=== PATIENT | male | born 1935 | race Caucasian/White ===

== ENCOUNTER 2017-05-29 22:54 | Inpatient (IN) | payer MEDICARE ==
[~2017-05-29] VITALS: Ht 165.1 cm; Wt 80.3 kg
[2017-05-29 22:45] VITALS: BP 146/72; PULSE 107; RESP 20; TEMP 98.3; O2SAT 97
[~2017-05-29 22:54] MED LIST: ACETAMINOPHEN 325 MG TAB PO PRN; AMLO10; AMLO10 PO; CLOP75; ENAL20TA81; LISI-515 PO; LOVA10TA; MAGNESIUM HYDROXIDE SUSP 30 ML CUP PO PRN; METO100T; METO100T PO; METOPROLOL TARTRATE 100 MG TAB PO SCH; NALOXONE HCL 0.4 MG/ML AMP IV PUSH PRN; NITROGLYCERIN 0.4 MG SL 25 TABS/BTL SL PRN; ONDANSETRON HCL 4 MG/2 ML VIAL IVP PRN; SODIUM CHLORIDE 0.9% FLUSH 10 ML FLUSH IV FLUSH PRN; TAMS0.4C67
[2017-05-29] MEDS: SODIUM CHLORIDE 0.9% FLUSH 10 ML FLUSH IV FLUSH SCH (23:50)
[2017-05-29] MEDS: METOPROLOL TARTRATE 50 MG TAB PO SCH (23:51)
[2017-05-30] VITALS (8 sets, daily range): BP systolic 104–116; BP diastolic 56–67; PULSE 62–88; RESP 16–19; TEMP 97.6–98.6; O2SAT 94–96
[2017-05-30 01:32] LABS: AUTOMATED NEUTROPHIL # 6.4 TH/MM3 (1.8-7.7); BASOPHIL # 0.1 TH/MM3 (0-0.2); BASOPHIL % 0.5 % (0.0-2.0); EOSINOPHIL # 0.1 TH/MM3 (0-0.4); EOSINOPHIL % 1.3 % (0.0-4.0); HEMATOCRIT 40.8 % (39.0-51.0); LYMPH % 26.4 % (9.0-44.0); LYMPHOCYTE # 2.7 TH/MM3 (1.0-4.8); MEAN CORPUSCULAR HEMOGLOBIN 29.7 PG (27.0-34.0); MEAN CORPUSCULAR HGB CONC 33.8 % (32.0-36.0); MONO % 8.5 % (0.0-8.0); NEUT % 63.3 % (16.0-70.0); PLATELET COUNT 87 TH/MM3 (150-450); RED BLOOD COUNT 4.64 MIL/MM3 (4.50-5.90); RED CELL DISTRIBUTION WIDTH 14.9 % (11.6-17.2); WHITE BLOOD COUNT 10.1 TH/MM3 (4.0-11.0)
[2017-05-30 01:37] LABS: HEMO FLAGS AUTO DIFF
[2017-05-30 02:17] LABS: BICARBONATE 27.6 MEQ/L (21.0-32.0); POTASSIUM 4.5 MEQ/L (3.5-5.1)
[2017-05-30 02:20] LABS: HDL CHOLESTEROL 50.3 MG/DL (40.0-60.0)
[2017-05-30 02:25] LABS: OVALOCYTES 1+ (NORMAL); PLATELET ESTIMATE SMEAR LOW (NORMAL); PLATELET MORPHOLOGY NORMAL (NORMAL)
[2017-05-30 02:26] LABS: ACANTHOCYTES OCC (NORMAL); SCAN/DIFF AUTO DIFF CONFIRMED
--- NOTE | 2017-05-30 05:25 | RADRPT ---
EXAM DATE/TIME: 05/30/2017 04:30 [facility] COMPARISON: No previous studies available for comparison. INDICATIONS : Shortness of breath, possible pulmonary disease. MEDICAL HISTORY : None. SURGICAL HISTORY : None. ENCOUNTER: Initial ACUITY: 1 day PAIN SCORE: 0/10 LOCATION: Bilateral chest FINDINGS: A single view of the chest demonstrates the lungs to be symmetrically aerated without evidence of mas s, infiltrate or effusion. The cardiomediastinal contours are unremarkable. Osseous structures are intact. CONCLUSION: The lungs are clear. Reginaldo Anne MD on May 30, 2017 at 5:24 Board Certified Radiologist. This report was verified electronically.
[2017-05-30] MEDS: SODIUM CHLORIDE 0.9% FLUSH 10 ML FLUSH IV FLUSH SCH ×2 (09:00→20:52)
[2017-05-30] MEDS: ASPIRIN 325 MG TAB PO SCH (09:11)
[2017-05-30] MEDS: METOPROLOL TARTRATE 50 MG TAB PO SCH ×2 (09:11→20:51)
--- NOTE | 2017-05-30 09:38 | RADRPT ---
EXAM DATE/TIME: 05/30/2017 08:01 [facility] COMPARISON: No previous studies available for comparison. INDICATIONS : Weakness. MEDICAL HISTORY : Stroke. Hypercholesterolemia. Hypertension. Transient ischemic attack. Right shoulder surgery. SURGICAL HISTORY : Hemmroidectomy. ENCOUNTER: Initial ACUITY: 1 day PAIN SCORE: 10 LOCATION: Bilateral neck PEAK SYSTOLIC VELOCITIES (cm/sec): ICA/CCA RATIO: Right: 0.9 Left: 0.7 ICA: Right: 71 Left: 54 CCA: Right: 79 Left: 74 ECA: Right: 89 Left: 64 VERTEBRAL: Right: 39 antegrade Left: 40 antegrade Elevated flow velocities and ICA/CCA ratios have been found to correlate with increased degrees of vessel stenosis, calculated as percentage of diameter relative to a normal segment of distal ICA/CCA FINDINGS: RIGHT CAROTID: No significant stenosis is visualized. The waveforms are within normal limits. LEFT CAROTID: Minimal calcified plaque is seen in the carotid bulb. No significant stenosis is visualized. The wav eforms are within normal limits. VERTEBRAL ARTERIES: Antegrade flow is seen in both vertebral arteries. MISCELLANEOUS: None. CONCLUSION: Mild atherosclerotic disease. No evidence of hemodynamically significant stenosis. Demian George MD on May 30, 2017 at 9:35 Board Certified Radiologist. This report was verified electronically.
--- NOTE | 2017-05-30 10:08 | HHI.HP ---
HPI Service [facility] Hospitalists Primary Care Physician Matthew Corrales MD Admission Diagnosis abnormal troponin Chief Complaint: dizziness Travel History International Travel<30 Days: No Contact w/Intl Traveler <30 Da: No History of Present Illness Pt is 82 yo with ckd 3 and htn who says he ran out of his metoprolol and then began feeling bad. says he was taking 1/2 the dose for 2 days then went without it for 2 more days. Was feeling dizzy for 2 days and noticed a higher bp into 140s. He came to ED and they noted an elevated troponin and sent him to [place]. He feels well today but troponin trended up slightly. no cp or sob. no diaphoresis. takes a baby asa at home. Review of Systems Other ran out of bb dizziness. Past Family Social History Past Medical History ckd 3 htn right shoulder surgery hemorroidectomy Reported Medications Metoprolol Tartrate 100 Mg Tab 100 Mg PO BID Norvasc (Amlodipine Besylate) 10 Mg Tab 10 Mg PO DAILY Lisinopril 20 Mg Tab 20 Mg PO DAILY asa 81mg daily [facility] records also show a statin drug. Allergies: Coded Allergies: ciprofloxacin (Unverified Allergy, Mild, RASH, 05/29/17) Family History nc Social History 40yrs tobacco. quit 20yrs ago. Physical Exam Vital Signs nad oriented heart reg. fran loudest rusb with carotid radiation. lung cta abd s/nt ext no edema Vital Signs Date Time Temp Pulse Resp B/P (MAP) Pulse Ox O2 Delivery O2 Flow Rate FiO2 05/30/17 08:00 98.0 73 16 116/66 (83) 96 05/30/17 04:16 73 05/30/17 04:00 98.6 87 19 114/67 (83) 94 05/30/17 01:58 Room Air 05/30/17 00:00 98.6 67 19 114/56 (75) 95 05/29/17 22:45 98.3 107 20 146/72 (96) 97 Laboratory Laboratory Tests Test 05/30/17 01:13 05/30/17 07:40 White Blood Count 10.1 Red Blood Count 4.64 Hemoglobin 13.8 Hematocrit 40.8 Mean Corpuscular Volume 88.0 Mean Corpuscular Hemoglobin 29.7 Mean Corpuscular Hemoglobin Concent 33.8 Red Cell Distribution Width 14.9 Platelet Count 87 Mean Platelet Volume 9.9 Neutrophils (%) (Auto) 63.3 Lymphocytes (%) (Auto) 26.4 Monocytes (%) (Auto) 8.5 Eosinophils (%) (Auto) 1.3 Basophils (%) (Auto) 0.5 Neutrophils # (Auto) 6.4 Lymphocytes # (Auto) 2.7 Monocytes # (Auto) 0.9 Eosinophils # (Auto) 0.1 Basophils # (Auto) 0.1 CBC Comment AUTO DIFF Differential Comment AUTO DIFF CONFIRMED Platelet Estimate LOW Platelet Morphology Comment NORMAL Ovalocytes 1+ Acanthocytes OCC Blood Urea Nitrogen 25 Creatinine 1.55 Random Glucose 102 Calcium Level 8.6 Sodium Level 141 Potassium Level 4.5 Chloride Level 106 Carbon Dioxide Level 27.6 Anion Gap 7 Estimat Glomerular Filtration Rate 43 Total Creatine Kinase 148 178 Troponin I 0.12 0.10 Triglycerides Level 50 Cholesterol Level 97 LDL Cholesterol 37 HDL Cholesterol 50.3 Cholesterol/HDL Ratio 1.92 Result Diagram: 05/30/1711205/30/17112 Caprini VTE Risk Assessment Caprini VTE Risk Assessment: Mod/High Risk (score >= 2) Caprini Risk Assessment Model Point Value = 1 Point Value = 2 Point Value = 3 Point Value = 5 Age 41-60 Minor surgery BMI > 25 kg/m2 Swollen legs Varicose veins or History of unexplained or recurrent spontaneous Oral contraceptives or hormone replacement Sepsis (< 1 month) Serious lung disease, including pneumonia (< 1 month) Abnormal pulmonary function Acute myocardial infarction Congestive heart failure (< 1 month) History of inflammatory bowel disease Medical patient at bed rest Age 61-74 Arthroscopic surgery Major open surgery (> 45 min) Laparoscopic surgery (> 45 min) Malignancy Confined to bed (> 72 hours) Immobilizing plaster cast Central venous access Age >= 75 History of VTE Family history of VTE Factor V Leiden Prothrombin [id number] Lupus anticoagulant Anticardiolipin antibodies Elevated serum homocysteine Heparin-induced thrombocytopenia Other congenital or acquired thrombophilia Stroke (< 1 month) Elective arthroplasty Hip, pelvis, or leg fracture Acute spinal cord injury (< 1 month) Prophylaxis Regimen Total Risk Factor Score Risk Level Prophylaxis Regimen 0-1 Low Early ambulation 2 Moderate Order ONE of the following: *Sequential Compression Device (SCD) *Heparin 5000 units SQ BID 3-4 Higher Order ONE of the following medications: *Heparin 5000 units SQ TID *Enoxaparin/Lovenox 40 mg SQ daily (WT < 150 kg, CrCl > 30 mL/min) *Enoxaparin/Lovenox 30 mg SQ daily (WT < 150 kg, CrCl > 10-29 mL/min) *Enoxaparin/Lovenox 30 mg SQ BID (WT < 150 kg, CrCl > 30 mL/min) AND/OR *Sequential Compression Device (SCD) 5 or more Highest Order ONE of the following medications: *Heparin 5000 units SQ TID (Preferred with Epidurals) *Enoxaparin/Lovenox 40 mg SQ daily (WT < 150 kg, CrCl > 30 mL/min) *Enoxaparin/Lovenox 30 mg SQ daily (WT < 150 kg, CrCl > 10-29 mL/min) *Enoxaparin/Lovenox 30 mg SQ BID (WT < 150 kg, CrCl > 30 mL/min) AND *Sequential Compression Device (SCD) Assessment and Plan Problem List: (1) Elevated troponin ICD Codes: R74.8 - Abnormal levels of other serum enzymes Status: Acute Plan: pt with htn and ckd 3 ran out of his metoprolol developed dizziness elevated troponin..trending slightly up...could be just related to ckd 3 echo and katharine pending resume ccb/bb/clary as bp allows. cont asa. telemetry. ADDENDUM PT NEVER HAD CP. HE IS FOUND TO HAVE ABNORMAL STRESS TEST FOR ISCHEMIA.. ALSO HIS ECHO SHOWS SEVERE AVS AND SYSTOLIC CHF. CURRENTLY COMPENSATED. ASK CARDIOLOGY TO EVALUATE (2) CKD (chronic kidney disease) stage 3, GFR 30-59 ml/min ICD Codes: N18.3 - Chronic kidney disease, stage 3 (moderate) Status: Chronic (3) HTN (hypertension) ICD Codes: I10 - Essential (primary) hypertension Status: Chronic Physician Certification 2 Midnight Certification Type: Admission for Inpatient Services Order for Inpatient Services 2The services are ordered in accordance with Medicare regulations or non- Medicare payer requirements, as applicable. In the case of services not specified as inpatient-only, they are appropriately provided as inpatient services in accordance with the 2-midnight benchmark. Estimated LOS (days): 2 2 days is the estimated time the patient will need to remain in the hospital, assuming treatment plan goals are met and no additional complications. Post-Hospital Plan: Home Rene Aviles MD May 30, 2017 10:08
[2017-05-30] MEDS ORDERED: REGADENOSON INJ 0.4 MG/5 ML SYR ONE (13:09)
--- NOTE | 2017-05-30 15:18 | ECHRPT ---
Indication: chest pain CONCLUSIONS The left ventricular systolic function is funytbdt-ks-urgakys reduced with an estimated ejection fra ction in the range of 35-40%. Normal left ventricular size. Mild concentric left ventricular hypertrophy. Nmbjs-ws-tzeh mitral valve regurgitation. Severe aortic valve stenosis. Aortic valve area is 0.43 cm. Aortic valve mean gradient is 72 mmHg. Aortic valve Vmax 549 cm/s There is mild tricuspid valve regurgitation. The pulmonary valve is not well visualized. BP: / HR: Rhythm: MEASUREMENTS (Male / Female) Normal Values Technical Quality:Technically difficult study 2D ECHO LV Diastolic Diameter PLAX 4.1 cm 4.2 - 5.9 / 3.9 - 5.3 cm LV Systolic Diameter PLAX 3.5 cm IVS Diastolic Thickness 2.1 cm 0.6 - 1.0 / 0.6 - 0.9 cm LVPW Diastolic Thickness 1.1 cm 0.6 - 1.0 / 0.6 - 0.9 cm LV Relative Wall Thickness 0.8 RV Internal Dim ED PLAX 2.3 cm LVOT Diameter 2.6 cm M-MODE Aortic Root Diameter MM 2.9 cm LA Systolic Diameter MM 2.8 cm LA Ao Ratio MM 1.0 DOPPLER AV Peak Velocity 548.5 cm/s AV Peak Gradient 120.3 mmHg AV Mean Gradient 72.0 mmHg AV Velocity Time Integral 123.0 cm LVOT Peak Velocity 49.6 cm/s LVOT Peak Gradient 1.0 mmHg LVOT Velocity Time Integral 10.0 cm AV Area Cont Eq vti 0.4 cm AV Area Cont Eq pk 0.5 cm Mitral E Point Velocity 56.8 cm/s Mitral A Point Velocity 104.0 cm/s Mitral E to A Ratio 0.5 LV E' Lateral Velocity 4.6 cm/s Mitral E to LV E' Lateral Ratio 12.4 LV E' Septal Velocity 3.7 cm/s Mitral E to LV E' Septal Ratio 15.2 FINDINGS LEFT VENTRICLE The left ventricular systolic function is kwlbwtqj-bc-ptswqek reduced with an estimated ejection fra ction in the range of 35-40%. Normal left ventricular size. Mild concentric left ventricular hypertrophy. RIGHT VENTRICLE Normal right ventricular size and systolic function. LEFT ATRIUM The left atrial size is normal. RIGHT ATRIUM The right atrial size is normal. ATRIAL SEPTUM Normal atrial septal thickness without atrial level shunting by limited color doppler interrogation. AORTA The aortic root and proximal ascending aorta are normal in size on limited imaging. MITRAL VALVE Structurally normal mitral valve. Ixzbu-id-fkfl mitral valve regurgitation. AORTIC VALVE Severe aortic valve stenosis. Aortic valve area is 0.43 cm. Aortic valve mean gradient is 72 mmHg. Aortic valve Vmax 549 cm/s TRICUSPID VALVE Structurally normal tricuspid valve. There is mild tricuspid valve regurgitation. PULMONARY VALVE The pulmonary valve is not well visualized. VESSELS The inferior vena cava is normal in size. PERICARDIUM No pericardial effusion. Tyron Downey MD (Electronically Signed) Final Date:30 May 2017 15:17
--- NOTE | 2017-05-30 15:41 | RADRPT ---
EXAM DATE/TIME: 05/30/2017 12:39 [facility] COMPARISON: No previous studies available for comparison. INDICATIONS : Substernal chest pain with dizziness. Angina. DOSE: 25.9 mCi Tc99m Myoview at stress. 8.5 mCi Tc99m Myoview at rest. 0.4 mg Lexiscan STRESS SYMPTOMS: None. EJECTION FRACTION: 43% MEDICAL HISTORY : Hypertension. Renal failure, chronic. SURGICAL HISTORY : Hemorrhoidectomy. Right shoulder. ENCOUNTER: Initial ACUITY: 1 day PAIN SCALE: 4/10 LOCATION: Substernal chest TECHNIQUE: The patient underwent pharmacologic stress with infusion of prescribed dose. Continuous ECG tracing was monitored during stress. Gated SPECT imaging was performed after stress and conventional SPECT i maging was performed at rest. The examination was performed on a SPECT/CT scanner, both attenuation and non-corrected datasets were reviewed. FINDINGS: DISTRIBUTION: The maximum perfused segment at stress is in the anterior wall. PERFUSION STUDY: A mixed fixed and reversible perfusion abnormality is identified in the inferior wall of the left nathaly tricle. A predominantly stress induced infra-apical component is noted with peripheral reperfusion. GATED STUDY: Increased wall motion is identified in the inferior wall. Ejection fraction is 43%. CONCLUSION: 1. Partially reversible Stress-induced perfusion abnormality in the inferior wall and inferoapical re gion of the left ventricle. 2. Mild left ventricular chamber dilatation with hypokinetic inferior wall. 3. Decreased ejection fraction of 43%. RISK CATEGORY: Intermediate (1-3% Annual Mortality Rate) Demian George MD on May 30, 2017 at 15:35 Board Certified Radiologist. This report was verified electronically.
--- NOTE | 2017-05-30 20:08 | EKG ---
Date Performed: 05/30/2017 Time Performed: 00:16:58 PTAGE: 82 years EKG: Sinus rhythm Indeterminate axis Right bundle branch block Abnormal ECG NO PREVIOUS TRACING Compared to prior tracing no significant change DOCTOR: True Shukla Interpretating Date/Time 05/30/2017 20:07:08
--- NOTE | 2017-05-30 20:08 | EKG ---
Date Performed: 05/30/2017 Time Performed: 05:56:48 PTAGE: 82 years EKG: Sinus rhythm Indeterminate axis Right bundle branch block Abnormal ECG PREVIOUS TRACING : 05/30/2017 00.16 Compared to prior tracing no significant change DOCTOR: True Shukla Interpretating Date/Time 05/30/2017 20:07:40
[2017-05-30] MEDS ORDERED: METOPROLOL TARTRATE 100 MG TAB PO SCH (21:00)
[2017-05-31] VITALS (18 sets, daily range): BP systolic 105–160; BP diastolic 56–90; PULSE 67–88; RESP 16–20; TEMP 98–98.7; O2SAT 95–98
--- NOTE | 2017-05-31 08:12 | PD.CONS ---
HPI Service cardiology Consult Requested By Reason for Consult severe aortic stenosis, abnormal stress test Primary Care Physician Matthew Corrales MD History of Present Illness 82 yo WM with CKD, HTN and aortic stenosis presented to [facility] on feeling dizzy; he had recently run out of metoprolol. During the course of his workup he was noted to have a cardiac murmur and elevated troponin. Echo showed severe aortic stenosis with reduced EF of 35-40%; stress testing was abnormal. Troponins increasing from 0.04/0.08/0.12; and creatinine elevated. He admits to occasional SOB with moderate exertion. No chest pain. (Genesis Carlson) Review of Systems Consitutional: DENIES: Fatigue, Fever, Chills, Weight gain, Weight loss Respiratory: DENIES: Cough, Snoring, Shortness of breath, Wheezing, Sputum production Cardiovascular: DENIES: Chest pain, Palpitations, Syncope, Tachycardia Gastrointestinal: DENIES: Nausea, Vomiting, Change in bowel habits, Reflux, Bloody stools, Melena (Genesis Carlson) Past Family Social History Allergies: Coded Allergies: ciprofloxacin (Unverified Allergy, Mild, RASH, 05/29/17) Past Medical History ckd 3 htn right shoulder surgery hemorroidectomy Reported Medications Reported Meds & Active Scripts Active Reported Metoprolol Tartrate 100 Mg Tab 100 Mg PO BID Norvasc (Amlodipine Besylate) 10 Mg Tab 10 Mg PO DAILY Lisinopril 20 Mg Tab 20 Mg PO DAILY Active Ordered Medications Current Medications Medications (Trade) Dose Ordered Sig/Abelino Route Start Time Stop Time Status Last Admin (NS Flush) 2 ml UNSCH PRN IV FLUSH 05/29/17 17:45 (NS Flush) 2 ml BID IV FLUSH 05/29/17 21:00 05/30/17 20:52 (Tylenol) 650 mg Q4H PRN PO 05/29/17 17:45 05/30/17 06:08 (Zofran Inj) 4 mg Q6H PRN IVP 05/29/17 17:45 (Narcan Inj) 0.4 mg UNSCH PRN IV PUSH 05/29/17 17:45 (Milk Of Magnesia Liq) 30 ml Q12H PRN PO 05/29/17 17:45 (Aspirin) 325 mg DAILY PO 05/30/17 09:00 05/30/17 09:11 (Nitrostat Sl) 0.4 mg Q5M PRN SL 05/29/17 17:45 (Lopressor) 50 mg Q12HR PO 05/30/17 21:00 05/30/17 20:51 Family History non-contributory Social History 40yrs tobacco. quit 20yrs ago. (Genesis Carlson) Physical Exam Vital Signs Vital Signs Date Time Temp Pulse Resp B/P (MAP) Pulse Ox O2 Delivery O2 Flow Rate FiO2 05/31/17 04:01 70 05/31/17 04:00 98.1 80 16 113/74 (87) 95 05/31/17 00:01 72 05/31/17 00:00 98.4 67 18 117/65 (82) 96 05/30/17 20:05 86 05/30/17 20:00 98.1 88 18 104/58 (73) 96 05/30/17 20:00 Room Air 05/30/17 16:00 97.6 83 17 116/57 (76) 95 05/30/17 12:00 98.3 62 17 113/61 (78) 96 05/30/17 08:00 98.0 73 16 116/66 (83) 96 Physical Exam GENERAL: SKIN: Warm and dry. HEAD: Atraumatic. Normocephalic. EYES: Pupils equal and round. ENT: No nasal bleeding or discharge. Mucous membranes pink and moist. NECK: Trachea midline. No JVD. CARDIOVASCULAR: Regular rate, 2/6 systolic murmur at LUSB RESPIRATORY: No accessory muscle use. Clear to auscultation. Breath sounds equal bilaterally. GASTROINTESTINAL: Abdomen soft, non-tender, nondistended. MUSCULOSKELETAL: Extremities without clubbing, cyanosis, or edema. No obvious deformities. NEUROLOGICAL: Awake and alert. No obvious cranial nerve deficits. Normal speech. PSYCHIATRIC: Appropriate mood and affect; insight and judgment normal. Laboratory Laboratory Tests Test 05/30/17 01:13 05/30/17 07:40 White Blood Count 10.1 TH/MM3 Red Blood Count 4.64 MIL/MM3 Hemoglobin 13.8 GM/DL Hematocrit 40.8 % Mean Corpuscular Volume 88.0 FL Mean Corpuscular Hemoglobin 29.7 PG Mean Corpuscular Hemoglobin Concent 33.8 % Red Cell Distribution Width 14.9 % Platelet Count 87 TH/MM3 Mean Platelet Volume 9.9 FL Neutrophils (%) (Auto) 63.3 % Lymphocytes (%) (Auto) 26.4 % Monocytes (%) (Auto) 8.5 % Eosinophils (%) (Auto) 1.3 % Basophils (%) (Auto) 0.5 % Neutrophils # (Auto) 6.4 TH/MM3 Lymphocytes # (Auto) 2.7 TH/MM3 Monocytes # (Auto) 0.9 TH/MM3 Eosinophils # (Auto) 0.1 TH/MM3 Basophils # (Auto) 0.1 TH/MM3 CBC Comment AUTO DIFF Differential Comment AUTO DIFF CONFIRMED Platelet Estimate LOW Platelet Morphology Comment NORMAL Ovalocytes 1+ Acanthocytes OCC Blood Urea Nitrogen 25 MG/DL Creatinine 1.55 MG/DL Random Glucose 102 MG/DL Calcium Level 8.6 MG/DL Sodium Level 141 MEQ/L Potassium Level 4.5 MEQ/L Chloride Level 106 MEQ/L Carbon Dioxide Level 27.6 MEQ/L Anion Gap 7 MEQ/L Estimat Glomerular Filtration Rate 43 ML/MIN Triglycerides Level 50 MG/DL Cholesterol Level 97 MG/DL LDL Cholesterol 37 MG/DL HDL Cholesterol 50.3 MG/DL Cholesterol/HDL Ratio 1.92 RATIO Total Creatine Kinase 178 U/L Troponin I 0.10 NG/ML (Genesis Carlson) Result Diagram: 05/30/17 0113 05/30/17 0113 Imaging Last 48 hours Impressions Myocardial Perfusion Scan Nuc Med 05/30/17 0000 Signed Impressions: Service Date/Time: Tuesday, May 30, 2017 12:39 - CONCLUSION: 1. Partially reversible Stress-induced perfusion abnormality in the inferior wall and inferoapical region of the left ventricle. 2. Mild left ventricular chamber dilatation with hypokinetic inferior wall. 3. Decreased ejection fraction of 43%%. RISK CATEGORY: Intermediate (1-3%% Annual Mortality Rate) Demian George MD Carotid Artery Ultrasound 05/30/17 0000 Signed Impressions: Service Date/Time: Tuesday, May 30, 2017 08:01 - CONCLUSION: Mild atherosclerotic disease. No evidence of hemodynamically significant stenosis. Demian George MD Chest X-Ray 05/29/17 1736 Signed Impressions: Service Date/Time: Tuesday, May 30, 2017 04:30 - CONCLUSION: The lungs are clear. Reginaldo Anne MD (Genesis Carlson) Assessment and Plan Problem List: (1) Cardiomyopathy ICD Codes: I42.9 - Cardiomyopathy, unspecified Status: Acute (2) Aortic stenosis, severe ICD Codes: I35.0 - Nonrheumatic aortic (valve) stenosis Status: Acute (3) Elevated troponin ICD Codes: R74.8 - Abnormal levels of other serum enzymes Status: Acute (4) HTN (hypertension) ICD Codes: I10 - Essential (primary) hypertension Status: Chronic Assessment and Plan 82 yo WM presents with dizziness after stopping metoprolol for several days. Found to have severe aortic stenosis and elevated troponins. Patient is relatively asymptomatic. cardiomyopathy- EF 35-40% with abnormal stress test and elevated troponins. creatinine 1.5 which appears to be his baseline. will plan for [facility] today. Keep NPO (Genesis Carlson) Genesis Carlson May 31, 2017 08:12 Kadeem Zendejas MD May 31, 2017 12:03
--- NOTE | 2017-05-31 08:37 | HHI.PR ---
Subjective Remarks no cp or sob. Objective Vitals heart reg. fran rusb to carotids lung cta abd s/nt ext no edema Vital Signs Date Time Temp Pulse Resp B/P (MAP) Pulse Ox O2 Delivery O2 Flow Rate FiO2 05/31/17 04:01 70 05/31/17 04:00 98.1 80 16 113/74 (87) 95 05/31/17 00:01 72 05/31/17 00:00 98.4 67 18 117/65 (82) 96 05/30/17 20:05 86 05/30/17 20:00 98.1 88 18 104/58 (73) 96 05/30/17 20:00 Room Air 05/30/17 16:00 97.6 83 17 116/57 (76) 95 05/30/17 12:00 98.3 62 17 113/61 (78) 96 Result Diagram: 05/30/1711205/30/17112 A/P Problem List: (1) Cardiomyopathy ICD Codes: I42.9 - Cardiomyopathy, unspecified Status: Acute Plan: pt with htn and ckd 3 ran out of his metoprolol developed dizziness elevated troponin. 1. elevated troponin. no cp. lexiscan positive for ischmia 2. 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 severe AVS. valve area .43cm2 and mean gradient 72mmHg 4. ckd 3 5. htn 2 d echo 05/30: The left ventricular systolic function is vxzprczq-ks-fvtrfob reduced with an estimated ejection fraction in the range of 35-40%. Normal left ventricular size. Mild concentric left ventricular hypertrophy. Gnowu-kt-byjo mitral valve regurgitation. Severe aortic valve stenosis. Aortic valve area is 0.43 cm. Aortic valve mean gradient is 72 mmHg. Aortic valve Vmax 549 cm/s There is mild tricuspid valve regurgitation. The pulmonary valve is not well visualized. Lexiscan 05/30: CONCLUSION: 1. Partially reversible Stress-induced perfusion abnormality in the inferior wall and inferoapical region of the left ventricle. 2. Mild left ventricular chamber dilatation with hypokinetic inferior wall. 3. Decreased ejection fraction of 43%. Plan consulted cardiology and [facility] planned to eval for obstructive cad/ischemic cardiomyopathy and eval the AVS. cont bb. his ccb and clary on hold due to bp asa (2) Aortic stenosis, severe ICD Codes: I35.0 - Nonrheumatic aortic (valve) stenosis Status: Acute (3) Elevated troponin ICD Codes: R74.8 - Abnormal levels of other serum enzymes Status: Acute Plan: above (4) CKD (chronic kidney disease) stage 3, GFR 30-59 ml/min ICD Codes: N18.3 - Chronic kidney disease, stage 3 (moderate) Status: Chronic (5) HTN (hypertension) ICD Codes: I10 - Essential (primary) hypertension Status: Chronic Rene Aviles MD May 31, 2017 08:37
[2017-05-31] MEDS: METOPROLOL TARTRATE 50 MG TAB PO SCH ×2 (09:00→21:22)
[2017-05-31] MEDS: ASPIRIN 325 MG TAB PO SCH (09:04)
[2017-05-31] MEDS: SODIUM CHLORIDE 0.9% FLUSH 10 ML FLUSH IV FLUSH SCH ×2 (09:08→21:22)
[2017-05-31] MEDS ORDERED: IOHEXOL 350 MG/ML 50 ML BTL (for Cath Lab) OTHER ONE (09:56)
[2017-05-31] MEDS ORDERED: MIDAZOLAM HCL 2 MG/2 ML VIAL ONE (11:28)
[2017-05-31] MEDS ORDERED: HEPARIN-NS/PF INJ 1,000 ML ONE (11:28)
[2017-05-31] MEDS ORDERED: HEPARIN SODIUM - IV 10,000 UNITS/10 ML VIAL ONE (11:29)
[2017-05-31] MEDS ORDERED: NITROGLYCERIN INJ 5 ML ONE (11:29)
[2017-05-31] MEDS ORDERED: VERAPAMIL HCL 5 MG/2 ML VIAL ONE (11:29)
[2017-05-31] MEDS ORDERED: oxyCODONE/ACETAMINOPHEN 5 MG/325 MG TAB PO PRN ×2 (12:00)
--- NOTE | 2017-05-31 12:04 | CATHPROC ---
[facility] HIS Report Study Information Study Number Admission Scheduled Start Study Start [id number] May 29 2017 10:57PM 05/31/2017 May 31 2017 11:06AM [facility] Cardiac Catheterization Admit Source Facility Department Emergency department [facility] - [facility] Physician and Clinical Staff Initial Kadeem Lacy Attending Anesthesiologist Halie Mcnair,RN Attending Anesthesiologist Karlee Aragon,MEÑO Recorder Nate Garcia,RT(R) Scrub Sean JessicaRT(R) Procedures Performed Procedure Location (Site) Vessel Name Coronary Angiograms LCA Left Coronary Coronary Angiograms RCA Right Coronary L Heart Cath Equipment Time Supervisor Power Reactor Description Size Mfg Part Number Used/Scraped TRANSDUCER, TRUWAVE [id number] 11:21 REYES GIVENS * Used W/STOCKCOCK *[id number] *[id number] *[id number] 11:21 GenerationOne PACK, CCL CUSTOM * Used *[id number] 11:21 [employer] SUPPORT, ARTERIAL ADULT [id number] *[id number] Used [id number] 11:21 [employer] PACER PEN, SKIN DUAL W/ RULER * Used *[id number] BAND, RADIAL COMPRESSION TR [id number] 11:56 [employer] MEDICAL 24CM Used SHORT 24 *[id number] SHEATH, FR6 RADIAL PRELUDE 11:21 [employer] FR 6 [id number] Used EASE 11CM [id number] 11:21 [employer] WIRE, EXCHANGE 260CM 3MMJ 260CM Used *[id number] 11:21 [employer]ED OMNIPAQUE, 350 MG, 150ML 150ML [id number] Used [id number] 11:21 [employer] BLANKET,WARM AIR CCL * Used *[id number] History: Allergies Allergy Reaction ciprofloxacin RASH History: Risk Factors Family History of Hypertension Dyslipidemia Previous TN Previous Heart Failure Premature CAD Yes Yes Yes No No Prior Valve Prior PCI Prior CABG Surgery No No No Cerebrovascular Peripheral Artery Chronic Lung On Dialysis Diabetes Diabetes Therapy Disease Disease Disease No Yes No No Yes Diet History: Stress Tests Stress or Imaging Studies Performed Yes Standard Exercise Stress Test No Stress Echo No Stress Test SPECT Stress Test SPECT Result Stress Test SPECT Ischemia Risk/Extent Yes Positive Intermediate Stress Test CMR No Cardiac CTA Coronary Calcium Score No No History: Other Disease Selection Items HTN History: Other Current Smoker Method Quit Packs a Day Years Used Pack Years No Cigarettes 20 Years Ago 1 40 40 Labs Hgb (g/dl) Hct (%) WBC (l/cumm) Platelets (thousands) 11.60-17.00 35.00-51.00 4.00-11.00 150.00-450.00 13.8 40.8 10.1 87 Glucose (mg/dl) BUN (mg/dl) Creatinine (mg/dl) BUN:Creatinine (1:x) 74.00-106.00 7.00-18.00 0.50-1.30 10.00-20.00 102 25 1.5 16.7 Na (meq/l) K (meq/l) 136.00-145.00 3.50-5.10 141 4.5 Troponin I (ng/ml) Troponin T (ng/ml) CPK (u/l) CPK-MB (ng/ML) 0.02-0.05 0.40-2.10 26.00-308.00 0.50-3.60 0.12 0.1 178 Not Drawn Medication Medication Total Dose (Bolus/Oral) Medication Total Dosage/Unit 1% XYLOCAINE 5 mL FENTANYL 25 mcg HEPARIN 3000 units NTG (IC) 200 mcg VERSED 1 mg Medications (Bolus/Oral) Medication Time Given Dosage/Unit Administered By Reason 05/31/2017 11:40:31 VERSED 1 mg Karlee Aragon AM 1 mg VERSED given in lab by Karlee Aragon RN via Peripheral IV. 05/31/2017 11:41:06 FENTANYL 25 mcg Karlee Aragon AM 25 mcg FENTANYL given in lab by Karlee Aragon, MEÑO via Peripheral IV. 05/31/2017 11:42:03 1% XYLOCAINE 5 mL Kadeem Zendejas AM 5 mL 1% XYLOCAINE given in lab by Kadeem Zendejas in Right Radial via Subcutaneous. 05/31/2017 11:44:51 NTG (IC) 200 mcg Kadeem Zendejas AM 200 mcg NTG (IC) given in lab by Kadeem Zendejas via Radial. 05/31/2017 11:45:32 HEPARIN 3000 units Halie Mcnair AM 3000 units HEPARIN given in lab by Halie Mcnair, MEÑO via Peripheral IV. Medication (Drip) Medication Time Given Dosage/Unit Concentration/Unit Diluent (ml) Solutio n 05/31/2017 11:28:55 IV Solutions 0 mL (IV) 500 NaCl .9 AM IV Solutions given in lab by Halie Mcnair, RN in Right Antecubital via Peripheral IV. Pump/Drip Fl ow = 20 ml/hr using NaCl .9. Initial Case Assessment Cardiovascular HR Rhythm NIBP Chest Pain 84 Sinus 114/86 0 Edema Present Skin color Skin None Normal Warm Dry Circulatory - Right Pulses Dorsalis Pedis Femoral Radial 1 2 2 Scale (0,1,2,3,4,d) Scale (0,1,2,3,4,d) Neurological State Oriented to time-place- Alert Moves all extremities person Respiration - General Respiration Rate SpO2 (%) O2 (lpm) (B/min) 17 96 0 Final Case Assessment Cardiovascular HR Rhythm NIBP Chest Pain 82 Sinus 108/69 0 Edema Present Skin color Skin None Normal Warm Dry Circulatory - Right Pulses Dorsalis Pedis Femoral Radial 1 2 2 Scale (0,1,2,3,4,d) Scale (0,1,2,3,4,d) Neurological State Oriented to time-place- Alert Moves all extremities person Respiration - General Respiration Rate SpO2 (%) O2 (lpm) (B/min) 20 94 0 Chronological Log Time Study Chronological Log 11:24:21 Patient arrived via Bed. 11:24:22 Patient Name, D.O.B, / Armband Verified By R.N. 11:24:23 Consent signed by the physician and the patient and verified by the [facility] staff. 11:24:24 Pre-op and post- op instructions given; patient acknowledges understanding of instructions. 11:24:24 Verbal Stimulation=2 Physical Stimulation=2 Airway=2 Respiration=2 TOTAL=8. (0=absent, 1=li mited, 2=present) 11:24:35 Presedation assessment performed by [facility] RN. 11:24:37 Allens test performed on the right radial and ulnar artery. 11:24:41 Patient has been NPO for More than 6Hrs. 11:24:42 Skin Breakdown-none per patient. 11:24:58 Patient Warmer Placed on the Table. 11:25:00 [facility] Prominences Protected 11:25:03 A # 20 IV was noted in the Antecubital (right). Grade = 0 IV Solutions given in lab by Halie Mcnair, RN in Right Antecubital via Peripheral IV. Pump/D rip Flow = 20 ml/hr 11:28:55 using NaCl .9. 11:28:56 History and physical on the chart or being dictated. Assessment: Initial Case, HR=84 BPM, Rhythm=Sinus, TDVH=125/86 mmhg, Chest Pain=0, Edema=None, Color=Normal, Skin = Warm, Dry 11:28:57 Right Pulses: Kenneth Ped=1, Femoral=2, Radial=2 Neurological: State=Alert, Ox3, DALE Respiration: Resp=17 B/min, SpO2=96 %, O2=0 lpm Vitals capture started with the following parameters, Patient=Adult, Interval=5 min, Initial Pr zqdstx=749 mmHg, 11:28:59 Deflation Rate=5 mmHg, Cuff placed on Left Arm 11:30:16 HR=84 bpm, CXZK=612/86 mmhg, SpO2=97.0 %, Resp=17 B/min, Pain=0, Amisha=10, Cameron=2 11:35:11 HR=82 bpm, FSUK=435/74 mmhg, SpO2=92.0 %, Resp=23 B/min, Pain=0, Amisha=10, Cameron=2 11:35:30 Reference ECG taken 11:37:54 Right Radial and groin(s) prepped with 2% chlorhexidine, and draped after a 3 min. waiting time. 11:38:05 MD arrived. 11:39:37 HR=83 bpm, XUHH=262/81 mmhg, SpO2=97.0 %, Resp=17 B/min, Pain=0, Amisha=10, Cameron=2 11:40:31 1 mg VERSED given in lab by Karlee Aragon, RN via Peripheral IV. 11:41:06 25 mcg FENTANYL given in lab by Karlee Aragon, RN via Peripheral IV. Time Out. Correct patient, correct procedure, correct physician, power injector not loaded with contrast with surgical 11:41:11 team present. Time Out Concurred by MD and individual staff in procedure. 11:41:23 Case Start 11:42:03 5 mL 1% XYLOCAINE given in lab by Kadeem Zendejas in Right Radial via Subcutaneous. 11:44:00 Pressure channel 1 zeroed. 11:44:08 Access site was Radial Artery. 11:44:42 HR=83 bpm, ZEQR=541/70 mmhg, SpO2=96.0 %, Resp=19 B/min, Pain=0, Amisha=10, Cameron=2 A SHEATH, FR6 RADIAL PRELUDE EASE 11CM FR 6 was advanced into the Radial (right) using the Perc utaneous 11:44:48 technique. 11:44:51 200 mcg NTG (IC) given in lab by Kadeem Zendejas via Radial. 11:45:32 3000 units HEPARIN given in lab by Halie Mcnair RN via Peripheral IV. A JR 5.0 INFINITI CATHETER FR 5 was advanced over a wire. OMNIPAQUE, 350 MG, 150ML 150ML was us ed for 11:46:03 injections. Recorded Pressure: Ao, HR=88, Condition=Condition 1 11:47:07 (Aorta) Ao 97/58/76 11:48:15 The RCA was injected and visualized at various angles. OMNIPAQUE, 350 MG, 150ML 150ML used . After removing the current catheter a JL 3.5 INFINITI CATHETER FR 5 was advanced over a WIRE, E XCHANGE 260CM 11:49:15 3MMJ 260CM. 11:49:39 HR=88 bpm, RGWJ=255/69 mmhg, SpO2=92.0 %, Resp=14 B/min, Pain=0, Amisha=10, Cameron=2 11:50:35 The LCA was injected and visualized at various angles. OMNIPAQUE, 350 MG, 150ML 150ML use d. 11:51:30 Catheter was removed 11:51:46 Case End Assessment: Final Case, HR=82 BPM, Rhythm=Sinus, GPFL=172/69 mmhg, Chest Pain=0, Edema=None, Color=Normal, Skin = Warm, Dry 11:53:07 Right Pulses: Kenneth Ped=1, Femoral=2, Radial=2 Neurological: State=Alert, Ox3, DALE Respiration: Resp=20 B/min, SpO2=94 %, O2=0 lpm 11:54:32 HR=83 bpm, FMVD=315/68 mmhg, Resp=20 B/min, Pain=0, Amisha=10, Cameron=2 Radial Compression Device Used. 11 mLs of air placed in BAND, RADIAL COMPRESSION TR SHORT 24 2 4CM. Affected 11:55:20 hand 94 % O2 saturation. 11:55:51 Vitals capture stopped. 11:59:00 No case complications noted. 11:59:02 Cine recording checked. 11:59:18 Bedside Report will be given. 11:59:24 A Left Heart Cath was performed. 11:59:[address] [facility] Study - Contrast Media Used In Study Contrast Total Opened (mL) Total Used (mL) Total Wasted (mL) Omnipaque 150 15 135 End Study - Maximum Contrast Load Max Contrast Load (mL) 272.7 End Study - Radiation Exposure Fluoro Time (minutes) 2.2 End Study - Patient Disposition Complications Transferred To Interventional Outcome No Telemetry Bed No attempt made
--- NOTE | 2017-05-31 12:29 | MA ---
cc: ALESHA QUINN DATE 05/31/2017 PROCEDURE PERFORMED 1. Fluoroscopy with interpretation. 2. Coronary angiography. METHOD The risks, benefits and alternatives were discussed with the patient. The patient understood and consented. The patient was brought to the catheterization lab, placed on the catheterization table. The right wrist was prepped and draped in sterile fashion. The right wrist was anesthetized with 2% lidocaine. The right radial artery was cannulated and a 6-Sammarinese, 7-cm sheath was placed out difficulty. CORONARY ANGIOGRAPHY 1. Left main coronary has a 90% ostial stenosis. 2. Left anterior descending coronary has minor luminal irregularities. Diagonal branch has minor luminal irregularities. 3. Left circumflex has minor luminal irregularities, gives rise to an obtuse marginal branch of smaller caliber size with minor luminal irregularities. 4. Right coronary is a dominant vessel giving rise to a posterior descending branch. The right coronary itself has only minor luminal irregularities. There is a posterior descending branch which has a very discrete calcific 80% stenosis but DIRK-3 flow distally. CONCLUSIONS 1. Severe ostial left main and calcific posterior descending coronary artery stenosis. 2. Severe aortic stenosis. PLAN We will consult Cardiothoracic Surgery for consideration of coronary artery bypass surgery and surgical aortic valve replacement. If he is not a good candidate for surgery, then we would have to discuss high-risk left main stent and TAVR. MD SHAWNA Scanlon/MAI /11:56 AM /12:10 PM
[2017-05-31] MEDS ORDERED: MISC INFORMATION XX ONE (13:30)
[2017-05-31] MEDS ORDERED: BACITRACIN OINT 0.9 GM PKT TOP ONE (14:00)
[2017-05-31] MEDS ORDERED: PAPAVERINE INJ 60 MG, NITROGLYCERIN INJ 100 MCG, DILTIAZEM INJ 100 MG in SODIUM CHLORID... IRRIGATION SCH (16:00)
--- NOTE | 2017-05-31 17:01 | MB ---
cc: ISIDORO FOOTE MD DATE OF CONSULTATION 05/31/17 : 1935 HISTORY OF PRESENT ILLNESS An 82-year-old male who presented to [facility] on Tuesday complaining of dizziness and some headaches. He had run out of his medication of metoprolol for a couple of days. They did a head CT scan which showed and old lacunar infarct basal ganglia, old infarct in the left frontal lobe, diffuse cortical atrophy, no focal or acute intracranial hemorrhage. His EKG showed some indeterminate axis, right bundle-branch block. He was then transferred to our facility after his troponins were elevated. He underwent a nuclear stress test which showed partially reversible stress induced perfusion abnormality inferior wall, inferior apical region of the left ventricle, some mild left ventricular dilation with hypokinetic inferior wall, EF of 43%. He underwent cardiac cath today by Dr. Zendejas with an EF showing 30%, left main 90%, RCA 80%. He also underwent echocardiogram which showed severe aortic stenosis with a valve area 0.43, mean gradient of 72, mild tricuspid regurgitation, mild mitral regurgitation, EF of 35-40%. We were consulted in regards to coronary artery bypass grafting x2 and aortic valve replacement versus high-risk PCI and transcatheter aortic valve replacement. PAST MEDICAL HISTORY 1. Chronic kidney disease stage III. He follows with a call person in [place]. 2. Hypertension, 3. Rheumatoid arthritis. 4. 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 PAST SURGICAL HISTORY 1. Right shoulder surgery, 2. Hemorrhoidectomy. ALLERGIES CIPROFLOXACIN MEDICATIONS Home include 1. Metoprolol 100 p.o. b.i.d. 2. Norvasc 10 p.o. daily. 3. Lisinopril 20 p.o. daily. FAMILY HISTORY Father from complications of diabetes. Mother had a stroke. SOCIAL HISTORY The patient smoked for 40 years. He quit 20 years ago. No alcohol. He is with two children. His daughter lives nearby, Nicole Curran, who will acting as his healthcare surrogate. REVIEW OF SYSTEMS GENERAL: No night sweats, fever, heat and cold intolerance. SKIN: No psoriasis, itching or hives. HEENT: No blurred vision, hearing loss. RESPIRATORY: Positive for shortness of breath. No cough. CARDIOVASCULAR: He denies having chest pain. He has had some lightheadedness. No palpitations. No paroxysmal nocturnal dyspnea. No orthopnea. GASTROINTESTINAL: No diarrhea, vomiting. GENITOURINARY: No burning, frequency, urgency BMET: History of CVA in the past. ENDOCRINE: No history of diabetes and/or hypothyroidism. PHYSICAL EXAMINATION VITAL SIGNS: Blood pressure 130/90, heart rate of 86, temperature max 98. GENERAL: Patient is awake, alert, no acute distress. HEENT: Head is normocephalic, atraumatic. Pupils equal and reactive. Oral mucosa pink, moist. NECK: Supple. No JVD. CARDIAC: Heart sounds S1, S2. Regular rate and rhythm. Grade 2-3/6 systolic murmur best noted at the left sternal border. LUNGS: Clear to auscultation. No wheezes, rales or rhonchi. ABDOMEN: Soft, nontender. No masses or organomegaly. EXTREMITIES: No cyanosis, clubbing or edema. LABORATORY DATA Lab work shows hemoglobin 13, hematocrit of 40, white cell count 10, platelet count of 87. Sodium of 141, potassium 4.5, BUN of 25, creatinine 1.55, triglycerides 50, cholesterol 97, HDL 50. IMAGING STUDIES Chest x-ray was unremarkable. The carotid ultrasound showed mild atherosclerotic disease. No evidence of hemodynamically significant stenosis. IMPRESSION This is an 82-year-old gentleman with severe aortic stenosis of the valve area 0.43, coronary artery disease with left main disease of 90%, RCA of 80%, ejection fraction of 35%. STS data risk of mortality of 8.7. His risk includes previous CVA, age, icr-[id number] [place], chronic kidney disease. The cardiac films will be evaluated by Dr. Isidoro Foote. Evaluation for whether the patient will be a candidate for open sternotomy with aortic valve replacement and coronary artery bypass grafting x2 versus high-risk PCI with transcatheter aortic valve replacement to be made by Dr. Isidoro Foote. Dictated by KEO Rodas Isidoro HARPER/ /4:00 PM /8:19 AM
--- NOTE | 2017-05-31 17:30 | RADRPT ---
EXAM DATE/TIME: 05/31/2017 16:15 [facility] COMPARISON: No previous studies available for comparison. INDICATIONS : Pre op cardiac surgery. MEDICAL HISTORY : Hypercholesterolemia. Hypertension. Cerebrovascular accident. Measles. SURGICAL HISTORY : Hemorrhoidectomy. Right shoulder surgery. ENCOUNTER: Initial ACUITY: 1 day PAIN SCORE: 0/10 LOCATION: Bilateral legs. TECHNIQUE: Venous ultrasound of the left and right leg was performed from the inguinal ligament to the proximal calf. Real-time, color Doppler and spectral tracing, compression and augmentation techniques were us ed. FINDINGS: RIGHT LEG: There is normal compressibility of the deep venous system from the inguinal region to the proximal ca lf. No echogenic clot is seen in the lumen of the common femoral, femoral, popliteal, and posterior tibial veins. There is a normal response of the venous system to proximal and distal augmentation an d respiration. LEFT LEG: There is normal compressibility of the deep venous system from the inguinal region to the proximal ca lf. No echogenic clot is seen in the lumen of the common femoral, femoral, popliteal, and posterior tibial veins. There is a normal response of the venous system to proximal and distal augmentation an d respiration. CONCLUSION: Negative exam. No sonographic or Doppler findings of deep venous thrombosis. Fco Beverly MD on May 31, 2017 at 17:25 Board Certified Radiologist. This report was verified electronically.
--- NOTE | 2017-05-31 17:31 | RADRPT ---
EXAM DATE/TIME: 05/31/2017 16:23 [facility] COMPARISON: No previous studies available for comparison. INDICATIONS : Pre op cardiac surgery. MEDICAL HISTORY : Hypercholesterolemia. Hypertension. Cerebrovascular accident. Measles. SURGICAL HISTORY : Hemorrhoidectomy. ENCOUNTER: Initial ACUITY: 1 day PAIN SCORE: 0/10 LOCATION: Bilateral legs. GREATER SAPHENOUS VEIN THIGH: PROXIMAL: Right 6 mm Left 6 mm MID: Right 4 mm Left 5 mm DISTAL: Right 4 mm Left 4 mm CALF: PROXIMAL: Right 3 mm Left 3 mm MID: Right 2 mm Left 3 mm DISTAL: Right Non-visualized Left 2 mm FINDINGS: The venous system of the lower extremities are patent by color Doppler imaging. Measurements of the leg veins (in mm) are listed above. CONCLUSION: 1. Venous mapping as above. 2. Could not identify the distal below-knee portion of the right greater saphenous vein. Superficial veins are otherwise patent. Fco Beverly MD on May 31, 2017 at 17:28 Board Certified Radiologist. This report was verified electronically.
[2017-05-31 23:59] LABS: BLOOD, URINE NEG (NEG); COMMENT (UR) CULT NOT INDICATED; CULTURE IF INDICATED CULT NOT INDICATED; GLUCOSE,URINE NEG (NEG); KETONE, URINE TRACE mg/dL (NEG); MUCUS URINE FEW /lpf (OCC); NITRITE,URINE NEG (NEG); URINE COLOR YELLOW (YELLW/STRAW)
[2017-06-01] VITALS (27 sets, daily range): BP systolic 107–120; BP diastolic 48–69; PULSE 67–113; RESP 16–22; TEMP 97.4–98.5; O2SAT 96–98
--- NOTE | 2017-06-01 07:01 | MB ---
cc: JOANN HANSON DATE OF CONSULTATION 05/31/2017 REASON FOR CONSULTATION Patient with thrombocytopenia and severe aortic stenosis. HISTORY OF PRESENT ILLNESS Mr. Arellano is an 82-year-old male who has a past medical history of chronic kidney disease, hypertension and chronic thrombocytopenia. He presented to the emergency department feeling unwell. He states that he ran out of his beta-lorena. He was feeling lightheaded and dizzy. In the emergency room, he was found to have elevated troponins. He did not have any shortness of breath or diaphoresis. No lower extremity edema. The patient has undergone cardiology evaluation. He was found to have an abnormal stress test and his echocardiogram showed severe aortic valve stenosis and systolic CHF. The aortic valve area was decreased to 0.43 cm2. His ejection fraction was decreased to 35-40%. He has undergone cardiac catheterization which showed severe ostial left main and calcific posterior descending coronary artery stenosis and severe aortic stenosis. Cardiothoracic surgery has been consulted for further evaluation. According to the patient, he has been thrombocytopenic for many years. He has seen a stage technician in [place]. He states that he has had a bone marrow biopsy in the past. His baseline platelet count is somewhere in the 80,000 range. He does not endorse having any history of liver disease or splenomegaly. He has never been checked for hepatitis. He has not ever had any bleeding complications. He endorses 40 pack-years of tobacco abuse. He quit 20 years ago. He denies any alcohol abuse. His platelet count is currently at 87,000. REVIEW OF SYSTEMS A comprehensive 14-point review of systems was completed which is negative except as described in HPI. PAST MEDICAL HISTORY 1. Hypertension 2. Hyperlipidemia 3. Thrombocytopenia 4. History of chronic kidney disease. PAST SURGICAL HISTORY 1. Right shoulder surgery 2. Hemorrhoidectomy 3. Cardiac cath FAMILY HISTORY Family history was reviewed and is noncontributory to this admission. SOCIAL HISTORY 40 pack-years of tobacco abuse. He denies excessive alcohol intake. MEDICATIONS 1. Percocet 5/225 one tablet p.o. q4h p.r.n. 2. Lopressor 50 mg p.o. b.i.d. 3. Aspirin 325 mg p.o. daily 4. Tylenol 650 mg p.o. q4h p.r.n. 5. Zofran 4 mg IV q6h p.r.n. 6. Nitroglycerin 0.4 mg sublingual q5 minutes p.r.n. 7. Milk of magnesia 30 cc p.o. q12h p.r.n. ALLERGIES Allergic to CIPROFLOXACIN. PHYSICAL EXAMINATION VITAL SIGNS: Blood pressure is 105/59, pulse is in the 70s, temperature is 98.7, O2 sats are 95% on room air. GENERAL: This is an elderly male in no apparent distress. HEENT: Pupils are equal, round, reactive to light. EOMI. No oral thrush. No oral lesions. NECK: Supple. No JVD, no bruits. No lymphadenopathy. CHEST: Clear to auscultation bilaterally. CARDIAC: S1-S2 regular rate and rhythm. ABDOMEN: Soft, nontender, nondistended. Bowel sounds are present. EXTREMITIES: Without any edema, erythema or cyanosis. SKIN: Without any petechiae, lesion or bruises. NEUROLOGIC: No focal deficits. PSYCHIATRIC: Mood and affect is appropriate. LABORATORY DATA WBC 10.1, hemoglobin 13.8, platelet count 87. Serum chemistries show a sodium of 141, potassium 4.5, chloride 106, CO2 27.6, anion gap is 7, BUN 25, creatinine is 1.55, GFR is 43, glucose is 102, calcium is 8.6, troponins 0.12, triglycerides 50, LDL 37. IMAGING STUDIES Lower extremity Dopplers were reviewed, negative for any DVT. Myocardial perfusion scan showed partially reversible stress induced perfusion abnormality in the inferior wall and inferoapical region of the left ventricle. Mild left ventricular chamber dilatation and hypokinetic inferior wall, decreased ejection fraction of 43%. ASSESSMENT/PLAN This is an 82-year-old male who has a past medical history of hypertension, hyperlipidemia, chronic kidney disease and chronic thrombocytopenia who presents to the emergency department with acute dyspnea and feeling unwell. He had an abnormal cardiac stress test and he was found to have severe aortic stenosis. I have been consulted to evaluate his thrombocytopenia. 1. Thrombocytopenia. 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 There is no history of liver disease or splenomegaly. However, the patient was unable to give a good history regarding this. We will check his liver functions. We will obtain a hepatitis panel. We will obtain abdominal ultrasound to evaluate his liver and spleen. We will review his peripheral smear. 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 It is less likely that he has underlying MDS, however, it is a possibility. I will defer further workup regarding MDS to outpatient basis. With a platelet count of greater than 80,000, he can undergo most of the procedures without any complications. 2. Severe aortic stenosis currently being evaluated by cardiology and cardiothoracic surgery. Thank you for allowing me to participate in the care of this patient. I will continue to follow this patient along. MD JANEEN Gonzalez/DIXIE /1:03 AM /6:44 AM [id number]
--- NOTE | 2017-06-01 07:38 | PD.CARD.PN ---
Subjective Subjective Remarks No chest pain, shortness of breath, palpitations, lower extremity swelling. Awaiting CT surgery evaluation. (Yasir Erazo) Objective Medications Current Medications Medications (Trade) Dose Ordered Sig/Abelino Route Start Time Stop Time Status Last Admin (NS Flush) 2 ml UNSCH PRN IV FLUSH 05/29/17 17:45 (NS Flush) 2 ml BID IV FLUSH 05/29/17 21:00 05/31/17 21:22 (Tylenol) 650 mg Q4H PRN PO 05/29/17 17:45 05/30/17 06:08 (Zofran Inj) 4 mg Q6H PRN IVP 05/29/17 17:45 (Narcan Inj) 0.4 mg UNSCH PRN IV PUSH 05/29/17 17:45 (Milk Of Magnshayna Liq) 30 ml Q12H PRN PO 05/29/17 17:45 (Aspirin) 325 mg DAILY PO 05/30/17 09:00 05/31/17 09:04 (Nitrostat Sl) 0.4 mg Q5M PRN SL 05/29/17 17:45 (Lopressor) 50 mg Q12HR PO 05/30/17 21:00 05/31/17 21:22 (Percocet 5-325 Mg) 1 tab Q4H PRN PO 05/31/17 12:00 (Percocet 5-325 Mg) 2 tab Q4H PRN PO 05/31/17 12:00 Papaverine HCl 60 mg/Nitroglycerin 100 mcg/Diltiazem HCl 100 mg/Sodium Chloride 100 ml @ 0 mls/hr 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 05/31/17 16:00 06/07/17 15:59 Vital Signs / I&O Vital Signs Date Time Temp Pulse Resp B/P (MAP) Pulse Ox O2 Delivery O2 Flow Rate FiO2 06/01/17 06:00 68 06/01/17 05:00 72 06/01/17 04:00 67 06/01/17 03:00 68 06/01/17 03:00 98.4 67 16 108/69 (82) 96 06/01/17 03:00 96 Room Air 06/01/17 02:00 69 06/01/17 01:00 68 06/01/17 00:00 72 05/31/17 23:00 95 Room Air 12/12/17 23:00 98.7 73 16 105/59 (74) 95 05/31/17 23:00 76 05/31/17 22:00 79 05/31/17 21:00 77 05/31/17 20:00 96 Room Air 05/31/17 20:00 98.3 84 16 115/70 (85) 96 05/31/17 20:00 78 05/31/17 19:00 84 05/31/17 17:00 86 18 132/80 (97) 05/31/17 16:09 82 05/31/17 16:00 86 20 137/90 (106) 98 05/31/17 15:30 88 132/88 (103) 05/31/17 15:30 75 05/31/17 15:28 75 05/31/17 15:14 98.0 86 18 137/90 (106) 97 05/31/17 13:10 96 Room Air 05/31/17 11:00 98.0 82 20 160/70 (100) 95 05/31/17 08:05 79 05/31/17 08:00 98.0 76 20 115/56 (75) 96 I/O 05/31/17 05/31/17 05/31/17 06/01/17 06/01/17 06/01/17 07:00 15:00 23:00 07:00 15:00 23:00 Intake Total 240 ml Output Total 150 ml Balance 90 ml Intake Oral 240 ml Output Urine Total 150 ml # Voids 2 # Bowel Movements 0 Physical Exam GENERAL: Well-developed well-nourished. In no acute distress. NECK: No carotid bruits. No JVD. CARDIOVASCULAR: Regular rate and rhythm. 3/6 systolic murmur appreciated. RESPIRATORY: No accessory muscle use. Clear to auscultation. Breath sounds equal bilaterally. MUSCULOSKELETAL: No clubbing or cyanosis. No edema. NEUROLOGICAL: Awake and alert. Normal speech. Laboratory Laboratory Tests Test 05/31/17 23:20 Urine Color YELLOW Urine Turbidity CLEAR Urine pH 5.0 Urine Specific [place] 1.025 Urine Protein NEG mg/dL Urine Glucose (UA) NEG mg/dL Urine Ketones TRACE mg/dL Urine Occult Blood NEG Urine Nitrite NEG Urine Bilirubin NEG Urine Urobilinogen LESS THAN 2.0 MG/DL Urine Leukocyte Esterase NEG Urine RBC LESS THAN 1 /hpf Urine WBC LESS THAN 1 /hpf Urine Mucus FEW /lpf Microscopic Urinalysis Comment CULT NOT INDICATED Nasal Screen MRSA (PCR) MRSA NOT DETECTED Imaging Last Impressions Lower Extremity Ultrasound 05/31/17 0000 Signed Impressions: Service Date/Time: Wednesday, May 31, 2017 16:23 - CONCLUSION: 1. Venous mapping as above. 2. Could not identify the distal below-knee portion of the right greater saphenous vein. Superficial veins are otherwise patent. Fco Beverly MD Myocardial Perfusion Scan Nuc Med 05/30/17 0000 Signed Impressions: Service Date/Time: Tuesday, May 30, 2017 12:39 - CONCLUSION: 1. Partially reversible Stress-induced perfusion abnormality in the inferior wall and inferoapical region of the left ventricle. 2. Mild left ventricular chamber dilatation with hypokinetic inferior wall. 3. Decreased ejection fraction of 43%%. RISK CATEGORY: Intermediate (1-3%% Annual Mortality Rate) Demian George MD Carotid Artery Ultrasound 05/30/17 0000 Signed Impressions: Service Date/Time: Tuesday, May 30, 2017 08:01 - CONCLUSION: Mild atherosclerotic disease. No evidence of hemodynamically significant stenosis. Demina George MD Chest X-Ray 05/29/17 1736 Signed Impressions: Service Date/Time: Tuesday, May 30, 2017 04:30 - CONCLUSION: The lungs are clear. Reginaldo Anne MD (Yasir Erazo) Assessment and Plan Problem List: (1) Cardiomyopathy ICD Codes: I42.9 - Cardiomyopathy, unspecified Status: Acute (2) Aortic stenosis, severe ICD Codes: I35.0 - Nonrheumatic aortic (valve) stenosis Status: Acute (3) Elevated troponin ICD Codes: R74.8 - Abnormal levels of other serum enzymes Status: Acute (4) HTN (hypertension) ICD Codes: I10 - Essential (primary) hypertension Status: Chronic Assessment and Plan 82 yo M who presented with dizziness after stopping metoprolol for several days. Found to have severe aortic stenosis, decreased ejection fraction, and elevated troponins. NSTEMI: Catheterization 05/31 showed severe ostial left main and calcific posterior descending coronary restenosis. CT surgery to discuss CABG vs high risk left main stent. Aortic stenosis: Evaluated with TTE and cath. CT surgery consulted for possible surgical AVR vs TAVR if high risk. 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 Continue metoprolol. (Yasir Erazo) Assessment and Plan await CT surgery decision for CABG/AVR continue current mgt. if not surgical candidate, will discuss other options. hematology assistance appreciated. no active bleeding given severe LM dz and symptoms/troponin, start prophylactic heparin gtt (Kadeem Zendejas MD) Yasir Erazo Jun 01, 2017 07:38 Kadeem Zendejas MD Jun 01, 2017 08:19
--- NOTE | 2017-06-01 08:22 | RADRPT ---
EXAM DATE/TIME: 06/01/2017 07:52 [facility] COMPARISON: No previous studies available for comparison. INDICATIONS : Abnormal lab values. MEDICAL HISTORY : Hypercholesterolemia. Hypertension. Transient ischemic attack. CVA. SURGICAL HISTORY : Hemorrhoidectomy. Right shoulder surgery. ENCOUNTER: Initial ACUITY: 1 day PAIN SCORE: 0/10 LOCATION: Abdomen. MEASUREMENTS: LIVER: 15.0 cm length COMMON DUCT: 6 mm RIGHT KIDNEY: 8.9 x 4.5 x 4.2 cm LEFT KIDNEY: 8.1 x 4.7 x 5.1 cm SPLEEN: 9.2 cm length AORTA: 1.8cm maximal FINDINGS: LIVER: Normal echotexture without focal lesion or ductal dilatation. Hepatopedal flow. COMMON DUCT: No intraluminal mass or stone visualized. GALLBLADDER: Contains no stones, demonstrates no wall thickening or pericholecystic fluid. PANCREAS: The visualized portions are within normal limits. RIGHT KIDNEY: No hydronephrosis, stone or mass. LEFT KIDNEY: No hydronephrosis, stone or mass. SPLEEN: No focal lesion. AORTA: Non aneurysmal. Mild atherosclerotic changes. IVC: Within normal limits. CONCLUSION: 1. Unremarkable abdominal sonogram. 2. No evidence for cholelithiasis. Sterling Awan MD on June 01, 2017 at 8:19 Board Certified Radiologist. This report was verified electronically.
[2017-06-01] MEDS ORDERED: HEPARIN-D5W 25,000 U/250 ML 250 ML IV PRN (08:30)
[2017-06-01 09:39] LABS: HEMATOCRIT 40.2 % (39.0-51.0); MEAN CELL VOLUME 86.9 FL (80.0-100.0); MEAN CORPUSCULAR HGB CONC 34.6 % (32.0-36.0); PLATELET COUNT 65 TH/MM3 (150-450); RED BLOOD COUNT 4.63 MIL/MM3 (4.50-5.90); RED CELL DISTRIBUTION WIDTH 14.5 % (11.6-17.2); WHITE BLOOD COUNT 7.9 TH/MM3 (4.0-11.0)
[2017-06-01 09:40] LABS: INTERNATIONAL NORMALIZED RATIO 1.1 RATIO; PROTHROMBIN TIME - PATIENT 11.6 SEC (9.8-11.6)
[2017-06-01 09:42] LABS: REVIEW FLAG FINAL
[2017-06-01 09:44] LABS: APTT (PATIENT) 25.3 SEC (24.3-30.1)
[2017-06-01 09:51] LABS: ANION GAP 8 MEQ/L (5-15); AST (GOT) 16 U/L (15-37); BICARBONATE 24.9 MEQ/L (21.0-32.0); BLOOD UREA NITROGEN 32 MG/DL (7-18); CHLORIDE 106 MEQ/L (98-107); GLOMERULAR FILTRATION RATE 42 ML/MIN (>89); SODIUM (NA) 139 MEQ/L (136-145)
[2017-06-01 09:52] LABS: ALT (GPT) 20 U/L (12-78)
[2017-06-01 09:54] LABS: ALKALINE PHOSPHATASE 55 U/L (45-117); INDIRECT BILIRUBIN 0.4 MG/DL (0.0-0.8); TOTAL BILIRUBIN ADULT 0.6 MG/DL (0.2-1.0)
[2017-06-01] MEDS: ATORVASTATIN 40 MG TAB PO SCH (10:05)
[2017-06-01] MEDS: ASPIRIN 81 MG CHEW TAB PO SCH (10:07)
[2017-06-01] MEDS: SODIUM CHLORIDE 0.9% FLUSH 10 ML FLUSH IV FLUSH SCH ×2 (10:08→21:40)
[2017-06-01] MEDS: METOPROLOL TARTRATE 50 MG TAB PO SCH ×2 (10:08→21:40)
--- NOTE | 2017-06-01 10:25 | HHI.PR ---
Subjective Remarks doing ok. Objective Vitals heart reg. rusb fran lung cta abd s/nt ext no edema Vital Signs Date Time Temp Pulse Resp B/P (MAP) Pulse Ox O2 Delivery O2 Flow Rate FiO2 06/01/17 09:45 98.3 68 16 109/63 (78) 98 06/01/17 09:45 98 Room Air 06/01/17 06:00 68 06/01/17 05:00 72 06/01/17 04:00 67 06/01/17 03:00 68 06/01/17 03:00 98.4 67 16 108/69 (82) 96 06/01/17 03:00 96 Room Air 06/01/17 02:00 69 06/01/17 01:00 68 06/01/17 00:00 72 05/31/17 23:00 95 Room Air 05/31/17 23:00 98.7 73 16 105/59 (74) 95 05/31/17 23:00 76 05/31/17 22:00 79 05/31/17 21:00 77 05/31/17 20:00 96 Room Air 05/31/17 20:00 98.3 84 16 115/70 (85) 96 05/31/17 20:00 78 05/31/17 19:00 84 05/31/17 17:00 86 18 132/80 (97) 05/31/17 16:09 82 05/31/17 16:00 86 20 137/90 (106) 98 05/31/17 15:30 88 132/88 (103) 05/31/17 15:30 75 05/31/17 15:28 75 05/31/17 15:14 98.0 86 18 137/90 (106) 97 05/31/17 13:10 96 Room Air 05/31/17 11:00 98.0 82 20 160/70 (100) 95 Result Diagram: 06/01/17 0842 06/01/17 0842 A/P Problem List: (1) Cardiomyopathy ICD Codes: I42.9 - Cardiomyopathy, unspecified Status: Acute Plan: pt with htn and ckd 3 ran out of his metoprolol developed dizziness elevated troponin. 1. elevated troponin. no cp. lexiscan positive for ischmia. lhc LM dz 2. 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 severe AVS. valve area .43cm2 and mean gradient 72mmHg 4. ckd 3 5. htn 6. thrombocytopenia. 2 d echo 05/30: The left ventricular systolic function is yhnnaigv-[id number] reduced with an estimated ejection fraction in the range of 35-40%. Normal left ventricular size. Mild concentric left ventricular hypertrophy. [id number] mitral valve regurgitation. Severe aortic valve stenosis. Aortic valve area is 0.43 cm. Aortic valve mean gradient is 72 mmHg. Aortic valve Vmax 549 cm/s There is mild tricuspid valve regurgitation. The pulmonary valve is not well visualized. Lexiscan 05/30: CONCLUSION: 1. Partially reversible Stress-induced perfusion abnormality in the inferior wall and inferoapical region of the left ventricle. 2. Mild left ventricular chamber dilatation with hypokinetic inferior wall. 3. Decreased ejection fraction of 43%. Plan awaiting cabg/avr decisions by CTS cont medical rx hematology addressing plts. (2) Aortic stenosis, severe ICD Codes: I35.0 - Nonrheumatic aortic (valve) stenosis Status: Acute (3) Elevated troponin ICD Codes: R74.8 - Abnormal levels of other serum enzymes Status: Acute Plan: above (4) CKD (chronic kidney disease) stage 3, GFR 30-59 ml/min ICD Codes: N18.3 - Chronic kidney disease, stage 3 (moderate) Status: Chronic (5) HTN (hypertension) ICD Codes: I10 - Essential (primary) hypertension Status: Chronic Rene Aviles MD Jun 01, 2017 10:25
[2017-06-01] MEDS ORDERED: ATROPINE SULFATE 1 MG/10 ML SYRINGE ONE (13:44)
[2017-06-01] MEDS ORDERED: EPINEPHrine HCL (1:10,000) 1 MG/10 ML SYRINGE ONE (13:45)
--- NOTE | 2017-06-01 14:41 | PD.ONC.PN ---
Subjective Subjective Remarks Afebrile overnight. Patient resting in bed in nad. Feeling fatigued but otherwise without complaints. Objective Data Date Time Temp Pulse Resp B/P (MAP) Pulse Ox O2 Delivery O2 Flow Rate FiO2 06/01/17 13:22 113 06/01/17 12:00 70 06/01/17 11:52 97 Room Air 06/01/17 11:52 97.4 71 16 118/68 (85) 97 06/01/17 11:00 73 06/01/17 10:00 76 06/01/17 09:45 98.3 68 16 109/63 (78) 98 06/01/17 09:45 98 Room Air 06/01/17 09:00 68 06/01/17 08:00 70 06/01/17 07:00 92 06/01/17 06:00 68 06/01/17 05:00 72 06/01/17 04:00 67 06/01/17 03:00 68 06/01/17 03:00 98.4 67 16 108/69 (82) 96 06/01/17 03:00 96 Room Air 06/01/17 02:00 69 06/01/17 01:00 68 06/01/17 00:00 72 05/31/17 23:00 95 Room Air 05/31/17 23:00 98.7 73 16 105/59 (74) 95 05/31/17 23:00 76 05/31/17 22:00 79 05/31/17 21:00 77 05/31/17 20:00 96 Room Air 05/31/17 20:00 98.3 84 16 115/70 (85) 96 05/31/17 20:00 78 05/31/17 19:00 84 05/31/17 17:00 86 18 132/80 (97) 05/31/17 16:09 82 05/31/17 16:00 86 20 137/90 (106) 98 05/31/17 15:30 88 132/88 (103) 05/31/17 15:30 75 05/31/17 15:28 75 05/31/17 15:14 98.0 86 18 137/90 (106) 97 06/01/17 06/01/17 06/01/17 07:00 15:00 23:00 Intake Total 240 ml Output Total 150 ml Balance 90 ml Result Diagram: 06/01/17 0842 06/01/17 0842 Laboratory Results Laboratory Tests Test 05/31/17 23:20 06/01/17 08:42 Urine Color YELLOW Urine Turbidity CLEAR Urine pH 5.0 Urine Specific [place] 1.025 Urine Protein NEG mg/dL Urine Glucose (UA) NEG mg/dL Urine Ketones TRACE mg/dL Urine Occult Blood NEG Urine Nitrite NEG Urine Bilirubin NEG Urine Urobilinogen LESS THAN 2.0 MG/DL Urine Leukocyte Esterase NEG Urine RBC LESS THAN 1 /hpf Urine WBC LESS THAN 1 /hpf Urine Mucus FEW /lpf Microscopic Urinalysis Comment CULT NOT INDICATED Nasal Screen MRSA (PCR) MRSA NOT DETECTED White Blood Count 7.9 TH/MM3 Red Blood Count 4.63 MIL/MM3 Hemoglobin 13.9 GM/DL Hematocrit 40.2 % Mean Corpuscular Volume 86.9 FL Mean Corpuscular Hemoglobin 30.0 PG Mean Corpuscular Hemoglobin Concent 34.6 % Red Cell Distribution Width 14.5 % Platelet Count 65 TH/MM3 Mean Platelet Volume 10.3 FL Blood Smear Pathologist Review Haptoglobin 25 MG/DL Prothrombin Time 11.6 SEC Prothromb Time International Ratio 1.1 RATIO Activated Partial Thromboplast Time 25.3 SEC Blood Urea Nitrogen 32 MG/DL Creatinine 1.59 MG/DL Random Glucose 96 MG/DL Total Protein 6.8 GM/DL Albumin 3.4 GM/DL Calcium Level 8.6 MG/DL Alkaline Phosphatase 55 U/L Aspartate Amino Transf (AST/SGOT) 16 U/L Alanine Aminotransferase (ALT/SGPT) 20 U/L Total Bilirubin 0.6 MG/DL Sodium Level 139 MEQ/L Potassium Level 4.0 MEQ/L Chloride Level 106 MEQ/L Carbon Dioxide Level 24.9 MEQ/L Anion Gap 8 MEQ/L Estimat Glomerular Filtration Rate 42 ML/MIN Direct Bilirubin 0.2 MG/DL Indirect Bilirubin 0.4 MG/DL Lactate Dehydrogenase 293 U/L Hepatitis B Surface Antigen NEGATIVE Hepatitis B Core IgM Antibody NEGATIVE Hepatitis C Antibody NEGATIVE Imaging Studies Last 24 hours Impressions Abdomen Ultrasound 06/01/17 0600 Signed Impressions: Service Date/Time: Thursday, June 01, 2017 07:52 - CONCLUSION: 1. Unremarkable abdominal sonogram. 2. No evidence for cholelithiasis. Sterling Awan MD Administered Medications Medications (Trade) Dose Ordered Sig/Abelino Route PRN Reason Start Time Stop Time Status Last Admin Dose Admin Sodium Chloride (NS Flush) 2 ml BID IV FLUSH 05/29/17 21:00 06/01/17 10:08 Acetaminophen (Tylenol) 650 mg Q4H PRN PO TEMP > 100.4 05/29/17 17:45 05/30/17 06:08 Metoprolol Tartrate (Lopressor) 50 mg Q12HR PO 05/30/17 21:00 06/01/17 10:08 Atorvastatin Calcium (Lipitor) 40 mg DAILY PO 06/01/17 09:45 06/01/17 10:05 Objective Remarks GENERAL: Elderly male sitting up in bed in nad. SKIN: Warm and dry. HEAD: Normocephalic. EYES: No injection or drainage. NECK: Supple, trachea midline. CARDIOVASCULAR: +S1/S2 RESPIRATORY: Breath sounds equal bilaterally. No accessory muscle use. GASTROINTESTINAL: Abdomen soft, non-tender, nondistended. EXTREMITIES: No cyanosis MUSCULOSKELETAL: Adequate muscle tone. NEUROLOGICAL: awake and alert, normal speech. 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 --no history of liver disease or splenomegaly. --hepatitis panel negative. --abdominal ultrasound shows no splenomegaly. --LE US shows no DVT --peripheral smear pending. 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 --less likely that he has underlying MDS, however, it is a possibility. will defer further workup regarding MDS to outpatient basis. (2) Aortic stenosis, severe ICD Codes: I35.0 - Nonrheumatic aortic (valve) stenosis Status: Acute Plan: --Severe aortic stenosis currently being evaluated by cardiology and cardiothoracic surgery. Assessment 82y.o male with thrombocytopenia and severe aortic stenosis. history of chronic kidney disease, hypertension and chronic thrombocytopenia. Plan 1. will ask lab to collect platelet count in citrate (blue top) tube, in case of clumping 2. await peripheral smear Attending Statement The exam, history, and the medical decision-making described in the above note were completed with the assistance of the mid-level provider. I reviewed and agree with the findings presented. I attest that I had a [id number]-[id number] encounter with the patient on the same day, and personally performed and documented my assessment and findings in the medical record patient with chronic thrombocytopenia at baseline severe likely causing chronic mild hemolysis/thrombocytopenia Hep panel negative no evidence of DIC Hb stable d/w rn o/n events reviewed Savannah Porras Jun 01, 2017 14:41 Wily Scott MD Jun 01, 2017 22:54
--- NOTE | 2017-06-01 14:50 | PD.CAR.PN ---
CVT Progress Note Subjective/Hospital Course: Had a lengthy discussion with the patient regarding ECHO, cardiac cath an clinical findings. Given his severe left ventricular function, advanced age and significant medical comorbidities, he will be at significant risk for operative and perioperative morbidity and mortality from AVR/CABG. He wishes to discuss percutaneous options with Dr. Zendejas. If deemed feasible, he will best be served with high-risk PCI to the left main followed by TAVR evaluation. Thank you for allowing me to participate in the care of this very pleasant gentleman. Objective: Vital Signs Date Time Temp Pulse Resp B/P (MAP) Pulse Ox O2 Delivery O2 Flow Rate FiO2 06/01/17 13:22 113 06/01/17 12:00 70 06/01/17 11:52 97 Room Air 06/01/17 11:52 97.4 71 16 118/68 (85) 97 06/01/17 11:00 73 06/01/17 10:00 76 06/01/17 09:45 98.3 68 16 109/63 (78) 98 06/01/17 09:45 98 Room Air 06/01/17 09:00 68 06/01/17 08:00 70 06/01/17 07:00 92 06/01/17 06:00 68 06/01/17 05:00 72 06/01/17 04:00 67 06/01/17 03:00 68 06/01/17 03:00 98.4 67 16 108/69 (82) 96 06/01/17 03:00 96 Room Air 06/01/17 02:00 69 06/01/17 01:00 68 06/01/17 00:00 72 05/31/17 23:00 95 Room Air 05/31/17 23:00 98.7 73 16 105/59 (74) 95 05/31/17 23:00 76 05/31/17 22:00 79 05/31/17 21:00 77 05/31/17 20:00 96 Room Air 05/31/17 20:00 98.3 84 16 115/70 (85) 96 05/31/17 20:00 78 05/31/17 19:00 84 05/31/17 17:00 86 18 132/80 (97) 05/31/17 16:09 82 05/31/17 16:00 86 20 137/90 (106) 98 05/31/17 15:30 88 132/88 (103) 05/31/17 15:30 75 05/31/17 15:28 75 05/31/17 15:14 98.0 86 18 137/90 (106) 97 Labs: Laboratory Tests Test 06/01/17 08:42 White Blood Count 7.9 TH/MM3 (4.0-11.0) Red Blood Count 4.63 MIL/MM3 (4.50-5.90) Hemoglobin 13.9 GM/DL (13.0-17.0) Hematocrit 40.2 % (39.0-51.0) Mean Corpuscular Volume 86.9 FL (80.0-100.0) Mean Corpuscular Hemoglobin 30.0 PG (27.0-34.0) Mean Corpuscular Hemoglobin Concent 34.6 % (32.0-36.0) Red Cell Distribution Width 14.5 % (11.6-17.2) Platelet Count 65 TH/MM3 (150-450) Mean Platelet Volume 10.3 FL (7.0-11.0) Blood Smear Pathologist Review Haptoglobin 25 MG/DL (30-200) Prothrombin Time 11.6 SEC (9.8-11.6) Prothromb Time International Ratio 1.1 RATIO Activated Partial Thromboplast Time 25.3 SEC (24.3-30.1) Blood Urea Nitrogen 32 MG/DL (7-18) Creatinine 1.59 MG/DL (0.60-1.30) Random Glucose 96 MG/DL (74-106) Total Protein 6.8 GM/DL (6.4-8.2) Albumin 3.4 GM/DL (3.4-5.0) Calcium Level 8.6 MG/DL (8.5-10.1) Alkaline Phosphatase 55 U/L (45-117) Aspartate Amino Transf (AST/SGOT) 16 U/L (15-37) Alanine Aminotransferase (ALT/SGPT) 20 U/L (12-78) Total Bilirubin 0.6 MG/DL (0.2-1.0) Sodium Level 139 MEQ/L (136-145) Potassium Level 4.0 MEQ/L (3.5-5.1) Chloride Level 106 MEQ/L (98-107) Carbon Dioxide Level 24.9 MEQ/L (21.0-32.0) Anion Gap 8 MEQ/L (5-15) Estimat Glomerular Filtration Rate 42 ML/MIN (>89) Direct Bilirubin 0.2 MG/DL (0.0-0.2) Indirect Bilirubin 0.4 MG/DL (0.0-0.8) Lactate Dehydrogenase 293 U/L (87-241) Hepatitis B Surface Antigen NEGATIVE (NEGATIVE) Hepatitis B Core IgM Antibody NEGATIVE (NEGATIVE) Hepatitis C Antibody NEGATIVE (NEGATIVE) Result Diagram: 06/01/1784106/01/17841 (1) Cardiomyopathy (2) Aortic stenosis, severe (3) Elevated troponin (4) HTN (hypertension) Regine Mir MD Jun 01, 2017 14:50
--- NOTE | 2017-06-01 14:55 | RADRPT ---
EXAM DATE/TIME: 06/01/2017 13:49 [facility] COMPARISON: No previous studies available for comparison. INDICATIONS : Preop AVR/eval calcification. RADIATION DOSE: 5.9 CTDIvol (mGy) MEDICAL HISTORY : Cerebrovascular disease. Cardiovascular disease Hypertension. SURGICAL HISTORY : Hysterectomy. ENCOUNTER: Initial ACUITY: 4 - 6 days PAIN SCALE: 7/10 LOCATION: Bilateral chest TECHNIQUE: Volumetric scanning of the chest was performed. Using automated exposure control and adjustment of t he mA and/or kV according to patient size, radiation dose was kept as low as reasonably achievable to obtain optimal diagnostic quality images. DICOM format image data is available electronically for r eview and comparison. Follow-up recommendations for detected pulmonary nodules are based at a minimum on nodule size and pa tient risk factors according to Fleischner Society Guidelines. FINDINGS: LUNGS: Small nodular densities are identified . The largest nodule is located in the left upper lobe and measures 6.7 mm. A 5.7 mm nodule is identi fied within the interlobar fissure in the right lung. Sub-4 mm nodules are identified adjacent to the right lung pleura. Pleural-based thickening with adjacent septal thickening is identified in the right lung base po steriorly. There is focal airway disease extending to the pleural surface. PLEURAE: Focal pleural thickening right lung base along the posterior lateral pleural margin. There is no evid ence of pleural effusion. MEDIASTINUM: The aortic valve is heavily calcified. There is no evidence of significant aneurysmal enlargement of the ascending aorta moderate coronary artery calcification is present. AXILLAE: Within normal limits. No lymphadenopathy. MUSCULOSKELETAL: Within normal limits for patient age. MISCELLANEOUS: The visualized upper abdominal organs demonstrate no acute abnormality. CONCLUSION: 1. Small bilateral pulmonary nodules. The largest measuring 6.7 mm is located in the left upper lobe. 6 month followup is recommended. 2. Heavily calcified aortic valve without aneurysmal artery of the ascending aorta. 3. Calcific coronary artery disease. 4. Chronic airway disease and pleural-parenchymal scarring in the right lung base. Demian George MD on June 01, 2017 at 14:43 Board Certified Radiologist. This report was verified electronically.
--- NOTE | 2017-06-01 16:08 | HM ---
Date Performed: 05/30/2017 Time Performed: 14:22:00 HOOKUP DATE: 05/30/17 02:22:00 PM Mon ANALYSIS START TIME: 05/30/2017 2:27:00 PM ANALYSIS END TIME: 05/31/2017 11:52:34 AM PATIENT AGE: 82 PATIENT HEIGHT PATIENT WEIGHT DRUG LIST PATIENT DIAGNOSIS: dizziness TEST NARRATIVE: The patient's average heart rate was 80 BPM. Heart rates greater than 120 B PM were noted < 1% of the time. No episodes of bradycardia were noted. No pauses exceeding 2.0 s econds were noted. 199 ventricular ectopics, which represented < 1% of the total beat count, were noted. The highest ventricular ectopic frequency occurred from 09:00 AM to 10:00 AM Tue. During th is time 31 VE(s) occurred. Ventricular ectopics were observed as 199 isolated beat(s) only. No coup lets or runs were noted. No supraventricular ectopics were noted. No episodes of ST depressio n (defined as -1.0 mm or more) were noted in channel 1. No episodes of ST depression (defined as -1. 0 mm or more) were noted in channel 2. No episodes of ST depression (defined as -1.0 mm or more) wer e noted in channel 3. TEST INTERPRETATION: Sinus rhythm Occasional PVCs Signed by : Nivia Zendejas
[2017-06-01 16:34] LABS: HEMOGLOBIN A1b 1.6 %; HEMOGLOBIN Ao 85.1 %; HEMOGLOBIN P3 5.3 %
[2017-06-01 17:17] LABS: APTT (PATIENT) 25.8 SEC (24.3-30.1)
[2017-06-02] VITALS (27 sets, daily range): BP systolic 109–136; BP diastolic 64–77; PULSE 62–111; RESP 16–22; TEMP 97.9–99.1; O2SAT 95–96
[2017-06-02 06:18] LABS: AUTOMATED NEUTROPHIL # 5.6 TH/MM3 (1.8-7.7); BASOPHIL % 0.4 % (0.0-2.0); EOSINOPHIL # 0.2 TH/MM3 (0-0.4); EOSINOPHIL % 2.5 % (0.0-4.0); HEMATOCRIT 41.1 % (39.0-51.0); LYMPH % 27.5 % (9.0-44.0); LYMPHOCYTE # 2.5 TH/MM3 (1.0-4.8); MEAN CORPUSCULAR HEMOGLOBIN 29.9 PG (27.0-34.0); MEAN CORPUSCULAR HGB CONC 34.4 % (32.0-36.0); MONO % 8.7 % (0.0-8.0); NEUT % 60.9 % (16.0-70.0); PLATELET COUNT 61 TH/MM3 (150-450); RED BLOOD COUNT 4.73 MIL/MM3 (4.50-5.90); RED CELL DISTRIBUTION WIDTH 15.1 % (11.6-17.2); WHITE BLOOD COUNT 9.2 TH/MM3 (4.0-11.0)
[2017-06-02 06:20] LABS: HEMO FLAGS AUTO DIFF
[2017-06-02 07:19] LABS: SCAN/DIFF AUTO DIFF CONFIRMED
--- NOTE | 2017-06-02 07:39 | PD.CARD.PN ---
Subjective Subjective Remarks Denies any chest pain or shortness of breath. Evaluated by CT surgeon, wants less invasive approach if possible. (Yasir Erazo) Objective Medications Current Medications Medications (Trade) Dose Ordered Sig/Baelino Route Start Time Stop Time Status Last Admin (NS Flush) 2 ml UNSCH PRN IV FLUSH 05/29/17 17:45 (NS Flush) 2 ml BID IV FLUSH 05/29/17 21:00 06/01/17 21:40 (Tylenol) 650 mg Q4H PRN PO 05/29/17 17:45 05/30/17 06:08 (Zofran Inj) 4 mg Q6H PRN IVP 05/29/17 17:45 (Narcan Inj) 0.4 mg UNSCH PRN IV PUSH 05/29/17 17:45 (Milk Of Magnesia Liq) 30 ml Q12H PRN PO 05/29/17 17:45 (Nitrostat Sl) 0.4 mg Q5M PRN SL 05/29/17 17:45 (Lopressor) 50 mg Q12HR PO 05/30/17 21:00 06/01/17 21:40 (Percocet 5-325 Mg) 1 tab Q4H PRN PO 05/31/17 12:00 (Percocet 5-325 Mg) 2 tab Q4H PRN PO 05/31/17 12:00 Papaverine HCl 60 mg/Nitroglycerin 100 mcg/Diltiazem HCl 100 mg/Sodium Chloride 100 ml @ 0 mls/hr LEATHER [employer]ATION 05/31/17 16:00 06/07/17 15:59 (Aspirin Chew) 81 mg DAILY PO 06/01/17 09:45 (Lipitor) 40 mg DAILY PO 06/01/17 09:45 06/01/17 10:05 Heparin Sodium/ Dextrose 250 ml @ 10 mls/hr TITRATE PRN IV 06/01/17 08:30 Vital Signs / I&O Vital Signs Date Time Temp Pulse Resp B/P (MAP) Pulse Ox O2 Delivery O2 Flow Rate FiO2 06/02/17 07:00 81 06/02/17 06:00 76 06/02/17 05:00 70 06/02/17 04:00 80 06/02/17 03:00 72 06/02/17 03:00 96 Room Air 06/02/17 03:00 98.2 69 22 109/73 (85) 96 06/02/17 02:00 70 06/02/17 01:00 62 06/02/17 00:00 76 06/01/17 23:00 98.4 72 22 107/48 (67) 96 06/01/17 23:00 96 Room Air 06/01/17 23:00 80 06/01/17 22:00 74 06/01/17 21:00 76 06/01/17 20:00 84 06/01/17 19:00 96 Room Air 06/01/17 19:00 98.5 78 22 120/67 (84) 96 06/01/17 19:00 70 06/01/17 18:41 93 06/01/17 17:15 87 06/01/17 16:00 113 06/01/17 15:36 96 Room Air 06/01/17 15:36 98.2 73 16 112/65 (81) 96 06/01/17 15:00 76 06/01/17 14:00 113 06/01/17 13:22 113 06/01/17 12:00 70 06/01/17 11:52 97 Room Air 06/01/17 11:52 97.4 71 16 118/68 (85) 97 06/01/17 11:00 73 06/01/17 10:00 76 06/01/17 09:45 98.3 68 16 109/63 (78) 98 06/01/17 09:45 98 Room Air 06/01/17 09:00 68 06/01/17 08:00 70 I/O 06/01/17 06/01/17 06/01/17 06/02/17 06/02/17 06/02/17 07:00 15:00 23:00 07:00 15:00 23:00 Intake Total 240 ml 480 ml 240 ml Output Total 150 ml 175 ml Balance 90 ml 305 ml 240 ml Intake Oral 240 ml 480 ml 240 ml Output Urine Total 150 ml 175 ml # Voids 2 1 2 # Bowel Movements 0 1 Physical Exam GENERAL: Well-developed well-nourished. In no acute distress. NECK: No carotid bruits. No JVD. CARDIOVASCULAR: Regular rate and rhythm. 3/6 systolic murmur appreciated. RESPIRATORY: No accessory muscle use. Clear to auscultation. Breath sounds equal bilaterally. MUSCULOSKELETAL: No clubbing or cyanosis. No edema. NEUROLOGICAL: Awake and alert. Normal speech. Laboratory Laboratory Tests Test 06/01/17 08:42 06/01/17 15:22 06/02/17 05:51 White Blood Count 7.9 TH/MM3 9.2 TH/MM3 Red Blood Count 4.63 MIL/MM3 4.73 MIL/MM3 Hemoglobin 13.9 GM/DL 14.2 GM/DL Hematocrit 40.2 % 41.1 % Mean Corpuscular Volume 86.9 FL 87.0 FL Mean Corpuscular Hemoglobin 30.0 PG 29.9 PG Mean Corpuscular Hemoglobin Concent 34.6 % 34.4 % Red Cell Distribution Width 14.5 % 15.1 % Platelet Count 65 TH/MM3 68 TH/MM3 61 TH/MM3 Mean Platelet Volume 10.3 FL 10.5 FL Blood Smear Pathologist Review Haptoglobin 25 MG/DL Prothrombin Time 11.6 SEC Prothromb Time International Ratio 1.1 RATIO Activated Partial Thromboplast Time 25.3 SEC 25.8 SEC Blood Urea Nitrogen 32 MG/DL Creatinine 1.59 MG/DL Random Glucose 96 MG/DL Total Protein 6.8 GM/DL Albumin 3.4 GM/DL Calcium Level 8.6 MG/DL Alkaline Phosphatase 55 U/L Aspartate Amino Transf (AST/SGOT) 16 U/L Alanine Aminotransferase (ALT/SGPT) 20 U/L Total Bilirubin 0.6 MG/DL Sodium Level 139 MEQ/L Potassium Level 4.0 MEQ/L Chloride Level 106 MEQ/L Carbon Dioxide Level 24.9 MEQ/L Anion Gap 8 MEQ/L Estimat Glomerular Filtration Rate 42 ML/MIN Hemoglobin A1c 5.8 % Direct Bilirubin 0.2 MG/DL Indirect Bilirubin 0.4 MG/DL Lactate Dehydrogenase 293 U/L Hepatitis B Surface Antigen NEGATIVE Hepatitis B Core IgM Antibody NEGATIVE Hepatitis C Antibody NEGATIVE Fibrinogen 449 mg/dL Neutrophils (%) (Auto) 60.9 % Lymphocytes (%) (Auto) 27.5 % Monocytes (%) (Auto) 8.7 % Eosinophils (%) (Auto) 2.5 % Basophils (%) (Auto) 0.4 % Neutrophils # (Auto) 5.6 TH/MM3 Lymphocytes # (Auto) 2.5 TH/MM3 Monocytes # (Auto) 0.8 TH/MM3 Eosinophils # (Auto) 0.2 TH/MM3 Basophils # (Auto) 0.0 TH/MM3 CBC Comment AUTO DIFF Differential Comment AUTO DIFF CONFIRMED Imaging Last Impressions Abdomen Ultrasound 06/01/17 0600 Signed Impressions: Service Date/Time: Thursday, June 01, 2017 07:52 - CONCLUSION: 1. Unremarkable abdominal sonogram. 2. No evidence for cholelithiasis. Sterling Awan MD Chest CT 06/01/17 0000 Signed Impressions: Service Date/Time: Thursday, June 01, 2017 13:49 - CONCLUSION: 1. Small bilateral pulmonary nodules. The largest measuring 6.7 mm is located in the left upper lobe. 6 month followup is recommended. 2. Heavily calcified aortic valve without aneurysmal artery of the ascending aorta. 3. Calcific coronary artery disease. 4. Chronic airway disease and pleural-parenchymal scarring in the right lung base. Demian George MD Lower Extremity Ultrasound 05/31/17 0000 Signed Impressions: Service Date/Time: Wednesday, May 31, 2017 16:23 - CONCLUSION: 1. Venous mapping as above. 2. Could not identify the distal below-knee portion of the right greater saphenous vein. Superficial veins are otherwise patent. Fco Beverly MD Myocardial Perfusion Scan Nuc Med 05/30/17 0000 Signed Impressions: Service Date/Time: Tuesday, May 30, 2017 12:39 - CONCLUSION: 1. Partially reversible Stress-induced perfusion abnormality in the inferior wall and inferoapical region of the left ventricle. 2. Mild left ventricular chamber dilatation with hypokinetic inferior wall. 3. Decreased ejection fraction of 43%%. RISK CATEGORY: Intermediate (1-3%% Annual Mortality Rate) Demian George MD Carotid Artery Ultrasound 05/30/17 0000 Signed Impressions: Service Date/Time: Tuesday, May 30, 2017 08:01 - CONCLUSION: Mild atherosclerotic disease. No evidence of hemodynamically significant stenosis. Demian George MD Chest X-Ray 05/29/17 8216 Signed Impressions: Service Date/Time: Tuesday, May 30, 2017 04:30 - CONCLUSION: The lungs are clear. Reginaldo Anne MD (Yasir Erazo) Assessment and Plan Problem List: (1) Cardiomyopathy ICD Codes: I42.9 - Cardiomyopathy, unspecified Status: Acute (2) Aortic stenosis, severe ICD Codes: I35.0 - Nonrheumatic aortic (valve) stenosis Status: Acute (3) Elevated troponin ICD Codes: R74.8 - Abnormal levels of other serum enzymes Status: Acute (4) HTN (hypertension) ICD Codes: I10 - Essential (primary) hypertension Status: Chronic Assessment and Plan 82 yo M who presented with dizziness after stopping metoprolol for several days. Found to have severe aortic stenosis, decreased ejection fraction, and elevated troponins. NSTEMI: Catheterization 05/31 showed severe ostial left main and calcific posterior descending coronary restenosis. CT surgery consulted, recommended against surgical options and for high risk PCI left main. On prophylactic heparin. Aortic stenosis: Evaluated with TTE and cath. CT surgery consulted, recommends TAVR due to high risk. 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 Continue metoprolol. Thrombocytopenia: Platelets stable in the 60s. Hematology following. Cleared for Plavix? (Yasir Erazo) Assessment and Plan Discussed options. Prohibitive risk for surgical AVR. R/B/A of high risk PCI discussed including bleeding, stroke, VA,and . Discussed with hematology. Ok for plavix. platelet transfusion in am. NPO p MN LM stent tomorrow. hold on CT chest for TAVR workup due CRI. hold heparin gtt in am. (Kadeem Zendejas MD) Yasir Erazo Jun 02, 2017 07:39 Kadeem eZndejas MD Jun 02, 2017 08:50
--- NOTE | 2017-06-02 08:36 | PD.FRAIL ---
Date: Jun 02, 2017 Height: 165.1 cm Weight: 79.2 kg Assessment Performed: Inpatient Days in Hospital at Exam: 3 Albumin 06/01/17 08:42: Blood Urea Nitrogen 32, Creatinine 1.59, Random Glucose 96, Total Protein 6.8, Albumin 3.4, Calcium Level 8.6, Alkaline Phosphatase 55, Aspartate Amino Transf (AST/SGOT) 16, Alanine Aminotransferase (ALT/SGPT) 20, Total Bilirubin 0.6, Sodium Level 139, Potassium Level 4.0, Chloride Level 106, Carbon Dioxide Level 24.9 Pass/Fail: Fail [place] Activities Daily Living [place] ADL Score: Bathing(bathes self/help in single area): [place] (1), Dressing(gets/puts clothes on self): [place] (1), Toileting(goes without help): [place] ( 1), [facility] [place] (1), Continence( complete self-control): [place] (1), Feeding(self, prep by another allowed) : [place] (1), Total: 6 Pass/Fail: Pass [employer]ator Strength Grasp 1: 10 Grasp 2: 10 Grasp 3: 12 Average: 10.6 Pass/Fail: Fail 15-Foot Walk 15-Foot Walk (seconds): 10.6 (very short of breath by end of 15ft walk) Pass/Fail: Fail Total Frailty Total Frailty (out of 4): 3 Frailty Index Score Reference Fiberglass Fab[employer]ator Strength: BMI: <=24 Cutoff for log marker strength(Kg): <=29 BMI: 24.1-28 Cutoff for log marker strength(Kg): <=30 BMI: >28 Cutoff for log marker strength(Kg): <=32 15-Foot Walk: Height: <=173 cm 15-Foot Walk Cutoff Time: >=7 seconds Height: >173 cm 15-Foot Walk Cutoff Time: >=6 seconds Randee Moise RN Jun 02, 2017 08:36
--- NOTE | 2017-06-02 08:40 | HHI.PR ---
Subjective Remarks doing ok. Objective Vitals heart reg/ fran rusb lung cta abd s/nt ext no edema Vital Signs Date Time Temp Pulse Resp B/P (MAP) Pulse Ox O2 Delivery O2 Flow Rate FiO2 06/02/17 07:34 96 Room Air 06/02/17 07:34 98.3 83 16 136/76 (96) 96 06/02/17 07:00 81 06/02/17 06:00 76 06/02/17 05:00 70 06/02/17 04:00 80 06/02/17 03:00 72 06/02/17 03:00 96 Room Air 06/02/17 03:00 98.2 69 22 109/73 (85) 96 06/02/17 02:00 70 06/02/17 01:00 62 06/02/17 00:00 76 06/01/17 23:00 98.4 72 22 107/48 (67) 96 06/01/17 23:00 96 Room Air 06/01/17 23:00 80 06/01/17 22:00 74 06/01/17 21:00 76 06/01/17 20:00 84 06/01/17 19:00 96 Room Air 06/01/17 19:00 98.5 78 22 120/67 (84) 96 06/01/17 19:00 70 06/01/17 18:41 93 06/01/17 17:15 87 06/01/17 16:00 113 06/01/17 15:36 96 Room Air 06/01/17 15:36 98.2 73 16 112/65 (81) 96 06/01/17 15:00 76 06/01/17 14:00 113 06/01/17 13:22 113 06/01/17 12:00 70 06/01/17 11:52 97 Room Air 06/01/17 11:52 97.4 71 16 118/68 (85) 97 06/01/17 11:00 73 06/01/17 10:00 76 06/01/17 09:45 98.3 68 16 109/63 (78) 98 06/01/17 09:45 98 Room Air 06/01/17 09:00 68 Result Diagram: 06/02/17 0551 06/01/17 0842 A/P Problem List: (1) Cardiomyopathy ICD Codes: I42.9 - Cardiomyopathy, unspecified Status: Acute Plan: pt with htn and ckd 3 ran out of his metoprolol developed dizziness elevated troponin. 1. elevated troponin. no cp. lexiscan positive for ischmia. c LM dz 2. 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 severe AVS. valve area .43cm2 and mean gradient 72mmHg 4. ckd 3 5. htn 6. thrombocytopenia. 2 d echo 05/30: The left ventricular systolic function is nisclieg-xb-pzpgtap reduced with an estimated ejection fraction in the range of 35-40%. Normal left ventricular size. Mild concentric left ventricular hypertrophy. Eouto-fk-awhp mitral valve regurgitation. Severe aortic valve stenosis. Aortic valve area is 0.43 cm. Aortic valve mean gradient is 72 mmHg. Aortic valve Vmax 549 cm/s There is mild tricuspid valve regurgitation. The pulmonary valve is not well visualized. Lexiscan 05/30: CONCLUSION: 1. Partially reversible Stress-induced perfusion abnormality in the inferior wall and inferoapical region of the left ventricle. 2. Mild left ventricular chamber dilatation with hypokinetic inferior wall. 3. Decreased ejection fraction of 43%. Plan very high risk for open cabg/avr discussing high risk pci followed by possible tavr in next 2 weeks..still high risk (2) Aortic stenosis, severe ICD Codes: I35.0 - Nonrheumatic aortic (valve) stenosis Status: Acute (3) Elevated troponin ICD Codes: R74.8 - Abnormal levels of other serum enzymes Status: Acute Plan: above (4) CKD (chronic kidney disease) stage 3, GFR 30-59 ml/min ICD Codes: N18.3 - Chronic kidney disease, stage 3 (moderate) Status: Chronic (5) HTN (hypertension) ICD Codes: I10 - Essential (primary) hypertension Status: Chronic Rene Aviles MD Jun 02, 2017 08:40
[2017-06-02] MEDS: ASPIRIN 81 MG CHEW TAB PO SCH (09:47)
[2017-06-02] MEDS: SODIUM CHLORIDE 0.9% FLUSH 10 ML FLUSH IV FLUSH SCH ×2 (09:47→21:45)
[2017-06-02] MEDS: METOPROLOL TARTRATE 50 MG TAB PO SCH ×2 (09:47→21:45)
[2017-06-02] MEDS: ATORVASTATIN 40 MG TAB PO SCH (09:47)
[2017-06-02] MEDS ORDERED: methylPREDNISolone SOD SUCC 125 MG/2 ML VIAL IV PUSH ONE (14:15)
[2017-06-02] MEDS ORDERED: COLCHICINE 0.6 MG TAB PO ONE (14:30)
--- NOTE | 2017-06-02 14:49 | PD.ONC.PN ---
Subjective Subjective Remarks Afebrile overnight. Patient resting in bed in nad. reporting a flare of gout in his left knee started today. usually he takes indocin for it. Objective Data Date Time Temp Pulse Resp B/P (MAP) Pulse Ox O2 Delivery O2 Flow Rate FiO2 06/02/17 13:19 75 06/02/17 12:08 78 06/02/17 11:33 74 06/02/17 11:21 98.0 87 16 129/77 (94) 96 06/02/17 11:21 96 Room Air 06/02/17 10:00 82 06/02/17 09:00 86 06/02/17 08:00 86 06/02/17 07:34 96 Room Air 06/02/17 07:34 98.3 83 16 136/76 (96) 96 06/02/17 07:00 81 06/02/17 06:00 76 06/02/17 05:00 70 06/02/17 04:00 80 06/02/17 03:00 72 06/02/17 03:00 96 Room Air 06/02/17 03:00 98.2 69 22 109/73 (85) 96 06/02/17 02:00 70 06/02/17 01:00 62 06/02/17 00:00 76 06/01/17 23:00 98.4 72 22 107/48 (67) 96 06/01/17 23:00 96 Room Air 06/01/17 23:00 80 06/01/17 22:00 74 06/01/17 21:00 76 06/01/17 20:00 84 06/01/17 19:00 96 Room Air 06/01/17 19:00 98.5 78 22 120/67 (84) 96 06/01/17 19:00 70 06/01/17 18:41 93 06/01/17 17:15 87 06/01/17 16:00 113 06/01/17 15:36 96 Room Air 06/01/17 15:36 98.2 73 16 112/65 (81) 96 06/01/17 15:00 76 06/02/17 06/02/17 06/02/17 07:00 15:00 23:00 Intake Total 240 ml Balance 240 ml Result Diagram: 06/02/17 0551 06/01/17 0842 Laboratory Results Laboratory Tests Test 06/01/17 15:22 06/02/17 05:51 Platelet Count 68 TH/MM3 61 TH/MM3 Activated Partial Thromboplast Time 25.8 SEC Fibrinogen 449 mg/dL White Blood Count 9.2 TH/MM3 Red Blood Count 4.73 MIL/MM3 Hemoglobin 14.2 GM/DL Hematocrit 41.1 % Mean Corpuscular Volume 87.0 FL Mean Corpuscular Hemoglobin 29.9 PG Mean Corpuscular Hemoglobin Concent 34.4 % Red Cell Distribution Width 15.1 % Mean Platelet Volume 10.5 FL Neutrophils (%) (Auto) 60.9 % Lymphocytes (%) (Auto) 27.5 % Monocytes (%) (Auto) 8.7 % Eosinophils (%) (Auto) 2.5 % Basophils (%) (Auto) 0.4 % Neutrophils # (Auto) 5.6 TH/MM3 Lymphocytes # (Auto) 2.5 TH/MM3 Monocytes # (Auto) 0.8 TH/MM3 Eosinophils # (Auto) 0.2 TH/MM3 Basophils # (Auto) 0.0 TH/MM3 CBC Comment AUTO DIFF Differential Comment AUTO DIFF CONFIRMED Administered Medications Medications (Trade) Dose Ordered Sig/Abelino Route PRN Reason Start Time Stop Time Status Last Admin Dose Admin Sodium Chloride (NS Flush) 2 ml BID IV FLUSH 05/29/17 21:00 06/02/17 09:47 Acetaminophen (Tylenol) 650 mg Q4H PRN PO TEMP > 100.4 05/29/17 17:45 05/30/17 06:08 Metoprolol Tartrate (Lopressor) 50 mg Q12HR PO 05/30/17 21:00 06/02/17 09:47 Atorvastatin Calcium (Lipitor) 40 mg DAILY PO 06/01/17 09:45 06/02/17 09:47 Objective Remarks GENERAL: Elderly male upright in bed in [facility]. SKIN: Warm and dry. HEAD: Normocephalic. EYES: No injection or drainage. NECK: Supple, trachea midline. CARDIOVASCULAR: +S1/S2 RESPIRATORY: Breath sounds equal bilaterally. No accessory muscle use. GASTROINTESTINAL: Abdomen soft, non-tender, nondistended. EXTREMITIES: No cyanosis. MUSCULOSKELETAL: Adequate muscle tone. NEUROLOGICAL: awake and alert, normal speech. moving extremities. Assessment/Plan Problem List: (1) Thrombocytopenia ICD Codes: D69.6 - Thrombocytopenia, unspecified Plan: --severe likely causing chronic mild hemolysis/thrombocytopenia --no evidence of DIC --no history of liver disease or splenomegaly. --hepatitis panel negative. --abdominal ultrasound shows no splenomegaly. --LE US shows no DVT --peripheral smear pending. --patient states he has seen a cheese cutter before and has had platelet clumping in the past resulting in pseudo thrombocytopenia. --less likely that he has underlying MDS, however, it is a possibility. will defer further workup regarding MDS to outpatient basis. (2) Aortic stenosis, severe ICD Codes: I35.0 - Nonrheumatic aortic (valve) stenosis Status: Acute Plan: --Severe aortic stenosis currently being evaluated by cardiology and cardiothoracic surgery. Assessment 82y.o male with thrombocytopenia and severe aortic stenosis. history of chronic kidney disease, hypertension and chronic thrombocytopenia. Plan 1. monitor CBC 2. await peripheral smear 3. check LDH, haptoglobin, hepatic function panel again today. Attending Statement The exam, history, and the medical decision-making described in the above note were completed with the assistance of the mid-level provider. I reviewed and agree with the findings presented. I attest that I had a [id number] encounter with the patient on the same day, and personally performed and documented my assessment and findings in the medical record Discussed case with Dr Zendejas Patient has chronic thrombocytopenia with PLT count ranging from 60-80. Plans for PCI and stent in am Above procedure is medically necessary Should have adequate platelet function with PLT count > 50 for the procedure Plan to transfuse 1 unit prior to the procedure Will give trial dose of steroids in to see if thrombocytopenia responds No evidence of TTP or DIC no hemolysis Hep panel negative d/w rn o/n events reviewed Savannah Porras Jun 02, 2017 14:49 Wily Scott MD Jun 03, 2017 00:40
[2017-06-02 16:15] LABS: INDIRECT BILIRUBIN 0.5 MG/DL (0.0-0.8); TOTAL BILIRUBIN ADULT 0.8 MG/DL (0.2-1.0)
[2017-06-03] VITALS (23 sets, daily range): BP systolic 110–118; BP diastolic 65–81; PULSE 63–90; RESP 14–18; TEMP 97.3–98.3; O2SAT 96–98
[2017-06-03 06:56] LABS: AUTOMATED NEUTROPHIL # 6.9 TH/MM3 (1.8-7.7); HEMATOCRIT 44.8 % (39.0-51.0); LYMPH % 12.3 % (9.0-44.0); MEAN CORPUSCULAR HEMOGLOBIN 29.8 PG (27.0-34.0); MEAN CORPUSCULAR HGB CONC 34.2 % (32.0-36.0); MONO % 1.2 % (0.0-8.0); NEUT % 86.5 % (16.0-70.0); PLATELET COUNT 60 TH/MM3 (150-450); RED BLOOD COUNT 5.15 MIL/MM3 (4.50-5.90); RED CELL DISTRIBUTION WIDTH 14.9 % (11.6-17.2); WHITE BLOOD COUNT 7.9 TH/MM3 (4.0-11.0)
[2017-06-03 07:06] LABS: HEMO FLAGS AUTO DIFF
--- NOTE | 2017-06-03 07:42 | HHI.PR ---
Subjective Remarks no questions. doing well. Objective Vitals heart reg/fran rusb lung cta abd s/nt ext no edema Vital Signs Date Time Temp Pulse Resp B/P (MAP) Pulse Ox O2 Delivery O2 Flow Rate FiO2 06/03/17 06:00 76 06/03/17 05:00 74 06/03/17 04:00 67 06/03/17 03:00 Room Air 06/03/17 03:00 63 06/03/17 03:00 97.8 73 18 117/81 (93) 97 06/03/17 02:00 64 06/03/17 01:00 68 06/03/17 00:00 73 06/02/17 23:00 Room Air 06/02/17 23:00 97.9 72 18 115/75 (88) 96 06/02/17 23:00 75 06/02/17 22:00 84 06/02/17 21:00 86 06/02/17 20:00 99.1 86 18 113/67 (82) 95 06/02/17 20:00 86 06/02/17 20:00 Room Air 06/02/17 19:00 104 06/02/17 18:14 111 06/02/17 17:37 98 06/02/17 16:00 78 06/02/17 15:38 96 Room Air 06/02/17 15:38 98.2 80 16 111/64 (80) 96 06/02/17 15:00 83 06/02/17 14:00 80 06/02/17 13:19 75 06/02/17 12:08 78 06/02/17 11:33 74 06/02/17 11:21 98.0 87 16 129/77 (94) 96 06/02/17 11:21 96 Room Air 06/02/17 10:00 82 06/02/17 09:00 86 06/02/17 08:00 86 Result Diagram: 06/03/17 0442 06/01/17 0842 A/P Problem List: (1) Cardiomyopathy ICD Codes: I42.9 - Cardiomyopathy, unspecified Status: Acute Plan: pt with htn and ckd 3 ran out of his metoprolol developed dizziness elevated troponin. 1. elevated troponin. no cp. lexiscan positive for ischmia. lhc LM dz 2. 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 severe AVS. valve area .43cm2 and mean gradient 72mmHg 4. ckd 3 5. htn 6. thrombocytopenia. 2 d echo 05/30: The left ventricular systolic function is swmipyid-qk-urlehcp reduced with an estimated ejection fraction in the range of 35-40%. Normal left ventricular size. Mild concentric left ventricular hypertrophy. Ymduu-gx-wnng mitral valve regurgitation. Severe aortic valve stenosis. Aortic valve area is 0.43 cm. Aortic valve mean gradient is 72 mmHg. Aortic valve Vmax 549 cm/s There is mild tricuspid valve regurgitation. The pulmonary valve is not well visualized. Lexiscan 05/30: CONCLUSION: 1. Partially reversible Stress-induced perfusion abnormality in the inferior wall and inferoapical region of the left ventricle. 2. Mild left ventricular chamber dilatation with hypokinetic inferior wall. 3. Decreased ejection fraction of 43%. Plan very high risk for open cabg/avr high risk pci to LM today followed by possible tavr eval in 2-3weeks. (2) Aortic stenosis, severe ICD Codes: I35.0 - Nonrheumatic aortic (valve) stenosis Status: Acute (3) Elevated troponin ICD Codes: R74.8 - Abnormal levels of other serum enzymes Status: Acute Plan: above (4) CKD (chronic kidney disease) stage 3, GFR 30-59 ml/min ICD Codes: N18.3 - Chronic kidney disease, stage 3 (moderate) Status: Chronic (5) HTN (hypertension) ICD Codes: I10 - Essential (primary) hypertension Status: Chronic Rene Aviles MD Jun 03, 2017 07:42
[2017-06-03 07:48] LABS: BANDS 11 % (0-6); NEUTROPHIL # MANUAL DIFF 6.9 TH/MM3 (1.8-7.7); OVALOCYTES 2+ (NORMAL); PLATELET ESTIMATE SMEAR LOW (NORMAL); PLATELET MORPHOLOGY ENLARGED (NORMAL); POLYS (SEG NEUTROPHILS) 76 % (16-70); SCAN/DIFF FINAL DIFF MANUAL; WBC DIFF SAMPLE 100
--- NOTE | 2017-06-03 08:41 | PD.CARD.PN ---
Subjective Subjective Remarks No chest pain at rest, some chest tightness when he gets out of bed. No shortness of breath. For platelet transfusion followed by PCI this morning. (Yasir Erazo) Objective Medications Current Medications Medications (Trade) Dose Ordered Sig/Abelino Route Start Time Stop Time Status Last Admin (NS Flush) 2 ml UNSCH PRN IV FLUSH 05/29/17 17:45 (NS Flush) 2 ml BID IV FLUSH 05/29/17 21:00 06/02/17 21:45 (Tylenol) 650 mg Q4H PRN PO 05/29/17 17:45 05/30/17 06:08 (Zofran Inj) 4 mg Q6H PRN IVP 05/29/17 17:45 (Narcan Inj) 0.4 mg UNSCH PRN IV PUSH 05/29/17 17:45 (Milk Of Magnesia Liq) 30 ml Q12H PRN PO 05/29/17 17:45 (Nitrostat Sl) 0.4 mg Q5M PRN SL 05/29/17 17:45 (Lopressor) 50 mg Q12HR PO 05/30/17 21:00 06/02/17 21:45 (Percocet 5-325 Mg) 1 tab Q4H PRN PO 05/31/17 12:00 (Percocet 5-325 Mg) 2 tab Q4H PRN PO 05/31/17 12:00 Papaverine HCl 60 mg/Nitroglycerin 100 mcg/Diltiazem HCl 100 mg/Sodium Chloride 100 ml @ 0 mls/hr VISION THERAPIST IRRIGATION 05/31/17 16:00 06/07/17 15:59 (Aspirin Chew) 81 mg DAILY PO 06/01/17 09:45 (Lipitor) 40 mg DAILY PO 06/01/17 09:45 06/02/17 09:47 Heparin Sodium/ Dextrose 250 ml @ 10 mls/hr TITRATE PRN IV 06/01/17 08:30 Vital Signs / I&O Vital Signs Date Time Temp Pulse Resp B/P (MAP) Pulse Ox O2 Delivery O2 Flow Rate FiO2 06/03/17 08:00 81 06/03/17 07:00 98.3 75 14 110/69 (83) 96 06/03/17 07:00 79 06/03/17 07:00 Room Air 06/03/17 06:00 76 06/03/17 05:00 74 06/03/17 04:00 67 06/03/17 03:00 Room Air 06/03/17 03:00 63 06/03/17 03:00 97.8 73 18 117/81 (93) 97 06/03/17 02:00 64 06/03/17 01:00 68 06/03/17 00:00 73 06/02/17 23:00 Room Air 06/02/17 23:00 97.9 72 18 115/75 (88) 96 06/02/17 23:00 75 06/02/17 22:00 84 06/02/17 21:00 86 06/02/17 20:00 99.1 86 18 113/67 (82) 95 06/02/17 20:00 86 06/02/17 20:00 Room Air 06/02/17 19:00 104 06/02/17 18:14 111 06/02/17 17:37 98 06/02/17 16:00 78 06/02/17 15:38 96 Room Air 06/02/17 15:38 98.2 80 16 111/64 (80) 96 06/02/17 15:00 83 06/02/17 14:00 80 06/02/17 13:19 75 06/02/17 12:08 78 06/02/17 11:33 74 06/02/17 11:21 98.0 87 16 129/77 (94) 96 06/02/17 11:21 96 Room Air 06/02/17 10:00 82 06/02/17 09:00 86 I/O 06/02/17 06/02/17 06/02/17 06/03/17 06/03/17 06/03/17 07:00 15:00 23:00 07:00 15:00 23:00 Intake Total 240 ml 720 ml 240 ml Balance 240 ml 720 ml 240 ml Intake Oral 240 ml 720 ml 240 ml # Voids 2 4 2 # Bowel Movements 1 0 Physical Exam GENERAL: Well-developed well-nourished. In no acute distress. NECK: No carotid bruits. No JVD. CARDIOVASCULAR: Regular rate and rhythm. 3/6 systolic murmur appreciated. RESPIRATORY: No accessory muscle use. Clear to auscultation. Breath sounds equal bilaterally. MUSCULOSKELETAL: No clubbing or cyanosis. No edema. NEUROLOGICAL: Awake and alert. Normal speech. Laboratory Laboratory Tests Test 06/02/17 15:12 06/03/17 04:42 Haptoglobin 39 MG/DL Total Bilirubin 0.8 MG/DL Direct Bilirubin 0.3 MG/DL Indirect Bilirubin 0.5 MG/DL Aspartate Amino Transf (AST/SGOT) 21 U/L Alanine Aminotransferase (ALT/SGPT) 22 U/L Alkaline Phosphatase 62 U/L Lactate Dehydrogenase 330 U/L Total Protein 7.1 GM/DL Albumin 3.5 GM/DL White Blood Count 7.9 TH/MM3 Red Blood Count 5.15 MIL/MM3 Hemoglobin 15.3 GM/DL Hematocrit 44.8 % Mean Corpuscular Volume 87.0 FL Mean Corpuscular Hemoglobin 29.8 PG Mean Corpuscular Hemoglobin Concent 34.2 % Red Cell Distribution Width 14.9 % Platelet Count 60 TH/MM3 Mean Platelet Volume 10.2 FL Neutrophils (%) (Auto) 86.5 % Lymphocytes (%) (Auto) 12.3 % Monocytes (%) (Auto) 1.2 % Eosinophils (%) (Auto) 0.0 % Basophils (%) (Auto) 0.0 % Neutrophils # (Auto) 6.9 TH/MM3 Lymphocytes # (Auto) 1.0 TH/MM3 Monocytes # (Auto) 0.1 TH/MM3 Eosinophils # (Auto) 0.0 TH/MM3 Basophils # (Auto) 0.0 TH/MM3 CBC Comment AUTO DIFF Differential Total Cells Counted 100 Neutrophils % (Manual) 76 % Band Neutrophils % 11 % Lymphocytes % 13 % Neutrophils # (Manual) 6.9 TH/MM3 Differential Comment FINAL DIFF MANUAL Platelet Estimate LOW Platelet Morphology Comment ENLARGED Ovalocytes 2+ Imaging Last Impressions Abdomen Ultrasound 06/01/17 0600 Signed Impressions: Service Date/Time: Thursday, June 01, 2017 07:52 - CONCLUSION: 1. Unremarkable abdominal sonogram. 2. No evidence for cholelithiasis. Sterling Awan MD Chest CT 06/01/17 0000 Signed Impressions: Service Date/Time: Thursday, June 01, 2017 13:49 - CONCLUSION: 1. Small bilateral pulmonary nodules. The largest measuring 6.7 mm is located in the left upper lobe. 6 month followup is recommended. 2. Heavily calcified aortic valve without aneurysmal artery of the ascending aorta. 3. Calcific coronary artery disease. 4. Chronic airway disease and pleural-parenchymal scarring in the right lung base. Demian George MD Lower Extremity Ultrasound 05/31/17 0000 Signed Impressions: Service Date/Time: Wednesday, May 31, 2017 16:23 - CONCLUSION: 1. Venous mapping as above. 2. Could not identify the distal below-knee portion of the right greater saphenous vein. Superficial veins are otherwise patent. Fco Beverly MD Myocardial Perfusion Scan [facility] 05/30/17 0000 Signed Impressions: Service Date/Time: Tuesday, May 30, 2017 12:39 - CONCLUSION: 1. Partially reversible Stress-induced perfusion abnormality in the inferior wall and inferoapical region of the left ventricle. 2. Mild left ventricular chamber dilatation with hypokinetic inferior wall. 3. Decreased ejection fraction of 43%%. RISK CATEGORY: Intermediate (1-3%% Annual Mortality Rate) Demian George MD Carotid Artery Ultrasound 05/30/17 0000 Signed Impressions: Service Date/Time: Tuesday, May 30, 2017 08:01 - CONCLUSION: Mild atherosclerotic disease. No evidence of hemodynamically significant stenosis. Demian George MD Chest X-Ray 05/29/17 1736 Signed Impressions: Service Date/Time: Tuesday, May 30, 2017 04:30 - CONCLUSION: The lungs are clear. Reginaldo Anne MD (Yasir Erazo) Assessment and Plan Problem List: (1) Cardiomyopathy ICD Codes: I42.9 - Cardiomyopathy, unspecified Status: Acute (2) Aortic stenosis, severe ICD Codes: I35.0 - Nonrheumatic aortic (valve) stenosis Status: Acute (3) Elevated troponin ICD Codes: R74.8 - Abnormal levels of other serum enzymes Status: Acute (4) HTN (hypertension) ICD Codes: I10 - Essential (primary) hypertension Status: Chronic Assessment and Plan 82 yo M who presented with dizziness after stopping metoprolol for several days. Found to have severe aortic stenosis, decreased ejection fraction, and elevated troponins. NSTEMI: Catheterization 05/31 showed severe ostial left main and calcific posterior descending coronary restenosis. CT surgery consulted, recommended against surgical options and for high risk PCI left main. Stop heparin prior to cath. Patient agreeable to proceed with high risk PCI left main today. Aortic stenosis: Evaluated with TTE and cath. CT surgery consulted, recommends TAVR due to high risk. Plan for TAVR workup as outpatient after PCI recovery. 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 Continue metoprolol. Thrombocytopenia: Platelets stable in the 60s. Hematology following, cleared for Plavix, platelet transfusion prior to catheterization today. (Yasir Erazo) Assessment and Plan PCI LM BMS monitor overnight if does well. home tomorrow FU in one week with BMP then will schedule CT chest; then TAVR, probably June. (Kadeem Zendejas MD) Yasir Erazo Jun 03, 2017 08:41 Kadeem Zendejas MD Jun 03, 2017 12:51
[2017-06-03] MEDS: SODIUM CHLORIDE 0.9% FLUSH 10 ML FLUSH IV FLUSH SCH ×2 (09:14→20:04)
[2017-06-03] MEDS: ATORVASTATIN 40 MG TAB PO SCH (09:14)
[2017-06-03] MEDS: METOPROLOL TARTRATE 50 MG TAB PO SCH ×2 (09:14→20:04)
[2017-06-03] MEDS: ASPIRIN 81 MG CHEW TAB PO SCH (09:14)
[2017-06-03] MEDS ORDERED: diphenhydrAMINE HCL 50 MG/ML VIAL ONE (10:13)
[2017-06-03] MEDS ORDERED: MIDAZOLAM HCL 2 MG/2 ML VIAL ONE (10:48)
[2017-06-03] MEDS ORDERED: LIDOCAINE HCL 1% PF 30 ML VIAL ONE (10:51)
[2017-06-03] MEDS ORDERED: HEPARIN SODIUM - IV 10,000 UNITS/10 ML VIAL ONE (11:05)
[2017-06-03] MEDS ORDERED: CLOPIDOGREL 300 MG TAB ONE (11:42)
[2017-06-03] MEDS ORDERED: BACITRACIN OINT 0.9 GM PKT TOP ONE (11:45)
[2017-06-03] MEDS ORDERED: SODIUM CHLOR 0.9% 250 ML INJ 250 ML IV PRN (11:45)
[2017-06-03] MEDS ORDERED: METOCLOPRAMIDE HCL 10 MG/2 ML VIAL IV PUSH PRN (11:45)
[2017-06-03] MEDS ORDERED: LIDOCAINE HCL 1% 50 ML VIAL INFIL PRN (11:45)
[2017-06-03] MEDS ORDERED: ATROPINE SULFATE 1 MG/ML VIAL IV PUSH PRN (11:45)
--- NOTE | 2017-06-03 12:15 | CATHPROC ---
[facility] HIS Report Study Information Study Number Scheduled Start Study Start [id number] 06/03/2017 Jun 03 2017 10:21AM Referring Institution Admit Source Facility Department 1 Emergency department [facility] - Mat Worker Physician and Clinical Staff Initial Kadeem Lacy Band Lining BanderKarlee Douglas,MEÑO Additional Tyron Willoughby Sharon,MEÑO Recorder Tammy Hoyos,RT(R) (BS) ScrConnie SouzaRT(R) Procedures Performed Procedure Location (Site) Vessel Name Coronary Angiograms LCA Left Coronary IABP Fem Art (left) Femoral Art Pacemaker Temp Fem Vein (right) Femoral Vein PTCA Lft Main Left Coronary PTCA ADD ON'S Stent Lft Main Left Coronary Wire insertion Fem Art (left) Femoral Art Wire insertion Fem Art (right) Femoral Art Equipment Time Data Warehousing Manager Description Size Mfg Part Number Used/Scraped COPILOT VALVE, BLEEDBACK [id number] 10:22 [employer] Used CONTROL *[id number] COPILOT VALVE, BLEEDBACK [id number] 11:01 [employer] Used CONTROL *[id number] COPILOT VALVE, BLEEDBACK [id number] 11:03 [employer] Used CONTROL *[id number] 11:02 REYES GIVENS PACING CATHETER J CURVE FR 5 Used *[id number] TRANSDUCER, TRUWAVE [id number] 10:22 REYES GIVENS * Used W/STOCKCOCK *[id number] *[id number] *[id number] WIRE, HYDROSTEER 260CM [id number] 11:16 DAIG/ST. MARIA [employer] 260CM Used STRAIGHT GLIDE *[id number] BALLOON, FR8 50CC SENSATION [id number] 11:07 MAQUET FR 8 50CC Used PLUS 01U [id number] 10:22 MEDLINE INDUSTRIES PACK, CCL CUSTOM * Used *[id number] 10:22 MEDLINE PACER PEN, SKIN DUAL W/ RULER * Used *[id number] 11:06 MEDTRONIC AL 1 DXTERITY CATHETER FR 5 Used *[id number] BALLOON, 4.0 X 8MM NC [id number] 11:31 MEDTR[employer] 8MM Used EUPHORA *[id number] 11:22 MEDTR[employer]IC STENT, 4.0 9 INTEGRITY 4.0 9 [id number] 11:01 [employer] MEDICAL 30 KASSIDY INDEFLATOR Used *[id number] 11:09 [employer] MEDICAL SHEATH, FR5.5 PRELUDE 11CM FR 5 [id number] 10:22 [employer] MEDICAL SHEATH, FR6.5 PRELUDE 11CM FR 6.5 038ACT Used *[id number] 11:00 [employer] MEDICAL SHEATH, FR6.5 PRELUDE 11CM FR 6.5 038ACT Used *7234870 [id number] 10:22 [employer] WIRE, 3MMJ .035 180CM 180CM Used *1095479 [id number] 11:05 [employer] WIRE, EXCHANGE 260CM 3MMJ 260CM Used *[id number] 11:14 [employer] WIRE, STRAIGHT TIP .035 * Used *[id number] [id number] 10:22 NAMIC MANIFOLD, 4 PORT * Used *[id number] 10:22 NYCOMED OMNIPAQUE, 350 MG, 150ML 150ML [id number] Used [id number] 10:22 [facility] BLANKET,WARM AIR CCL * Used *[id number] WIRE, RUNTHROUGH NS FLOPPY [id number] 11:01 [employer] MEDICAL 180CM Used .014 180CM *[id number] Equipment Model, Serial, Lot Number and Expiration Data Description Model Number Serial Number Lot Number Expiration Date BALLOON, 4.0 X 8MM [facility] [id number] 02-05-2019 STENT, 4.0 9 INTEGRITY [id number] 11-23-2018 WIRE, EXCHANGE 260CM 3MMJ [id number] 04-19-2020 History: Current Medications Medication Dosage/Unit Route Frequency Last Date/Time Taken Statins (any) Beta Dionisio ASA History: Allergies Allergy Reaction ciprofloxacin RASH History: Risk Factors Family History of Hypertension Dyslipidemia Previous [facility] Previous Heart Failure Premature CAD Yes Yes Yes No No Prior Valve Prior PCI Prior CABG Surgery No No No Cerebrovascular Peripheral Artery Chronic Lung On Dialysis Diabetes Diabetes Therapy Disease Disease Disease No Yes No No Yes Diet History: Stress Tests Stress or Imaging Studies Performed Yes Standard Exercise Stress Test No Stress Echo No Stress Test SPECT Stress Test SPECT Result Stress Test SPECT Ischemia Risk/Extent Yes Positive Intermediate Stress Test CMR No Cardiac CTA Coronary Calcium Score No No History: Other Disease Selection Items HTN History: Other Current Smoker Method Quit Packs a Day Years Used Pack Years No Cigarettes 20 Years Ago 1 40 40 Labs Hgb (g/dl) Hct (%) WBC (l/cumm) Platelets (thousands) 11.60-17.00 35.00-51.00 4.00-11.00 150.00-450.00 15.3 44.8 7.9 60 Glucose (mg/dl) BUN (mg/dl) Creatinine (mg/dl) BUN:Creatinine (1:x) 74.00-106.00 7.00-18.00 0.50-1.30 10.00-20.00 96 32 1.5 21.3 Na (meq/l) K (meq/l) 136.00-145.00 3.50-5.10 139 4 INR (PTT:PT) 0.90-1.10 1.1 Troponin I (ng/ml) CPK (u/l) CPK-MB (ng/ML) 0.02-0.05 26.00-308.00 0.50-3.60 0.1 187 Not Drawn Medication Medication Total Dose (Bolus/Oral) Medication Total Dosage/Unit 1% XYLOCAINE 40 mL FENTANYL 50 mcg HEPARIN 7000 units PLAVIX 600 mg VERSED 2 mg Medications (Bolus/Oral) Medication Time Given Dosage/Unit Administered By Reason 06/03/2017 10:49:38 1% XYLOCAINE 20 mL Kadeem Zendejas AM 20 mL 1% XYLOCAINE given in lab by Kadeem Zendejas in Right Groin via Subcutaneous. 06/03/2017 10:51:11 FENTANYL 50 mcg Karlee Aragon AM 50 mcg FENTANYL given in lab by Karlee Aragon RN in Left Hand via Peripheral IV. Ordered by Kadeem Zendejas. 06/03/2017 10:52:40 VERSED 2 mg Karlee Aragon AM 2 mg VERSED given in lab by Karlee Aragon RN in Left Hand via Peripheral IV. 06/03/2017 11:00:18 1% XYLOCAINE 20 mL Karlee Aragon AM 20 mL 1% XYLOCAINE given in lab by Karlee Aragon RN in Left Groin via Subcutaneous. 06/03/2017 11:03:19 HEPARIN 5000 units Kelly Wren AM 5000 units HEPARIN given in lab by Kelly Wren RN in Left Hand via Peripheral IV. 06/03/2017 11:18:29 HEPARIN 2000 units Kelly Wren AM 2000 units HEPARIN given in lab by Kelly Wren, RN in Left Hand via Peripheral IV. 06/03/2017 11:49:37 PLAVIX 600 mg Kelly Wren AM 600 mg PLAVIX given in lab by Kelly Wren, RN via Oral. Medication (Drip) Medication Time Given Dosage/Unit Concentration/Unit Diluent (ml) Solution 06/03/2017 10:28:14 IV Solutions 0 mL (IV) 500 NaCl .9 AM Patient arrived on IV Solutions in Right Antecubital via Peripheral IV. Pump/Drip Flow = 30 ml/hr usi ng NaCl .9. Initial Case Assessment Cardiovascular HR Rhythm NIBP Chest Pain 69 reg 129/73 0 Edema Present Skin color Skin None Normal Warm Dry Circulatory - Right Pulses Dorsalis Pedis Femoral 2 2 Scale (0,1,2,3,4,d) Circulatory - Left Pulses Dorsalis Pedis Femoral 2 2 Scale (0,1,2,3,4,d) Circulatory - Lower Extremities Color Lower Right Color Lower Left Normal Normal Neurological State Oriented to time-place- Alert Moves all extremities person Respiration - General Respiration Rate SpO2 (%) (B/min) 20 98 Comment: Tempurature 97.7 oral Final Case Assessment Cardiovascular HR Rhythm NIBP Chest Pain 90 sr 151/94 0 Circulatory - Right Pulses Dorsalis Pedis Femoral 2 2 Scale (0,1,2,3,4,d) Circulatory - Left Pulses Dorsalis Pedis Femoral 2 2 Scale (0,1,2,3,4,d) Neurological State Oriented to time-place- Alert Moves all extremities person Respiration - General Respiration Rate SpO2 (%) O2 (lpm) (B/min) 13 100 2 Chronological Log Time Study Chronological Log 10:27:19 Patient arrived via Bed. 10:27:21 Patient Name, D.O.B, / Armband Verified By R.N. 10:27:22 Consent signed by the physician and the patient and verified by the Mat Worker staff. 10:27:23 Verbal Stimulation=2 Physical Stimulation=2 Airway=2 Respiration=2 TOTAL=8. (0=absent, 1=li mited, 2=present) 10:27:26 Presedation assessment performed by Mat Worker RN. 10:27:32 Patient has been NPO for More than 6Hrs. 10:28:10 Whitney Prominences Protected 10:28:13 A # 20 IV was noted in the Antecubital (right). Grade = 0 10:28:14 Patient arrived on IV Solutions in Right Antecubital via Peripheral IV. Pump/Drip Flow = 30 ml/hr using NaCl .9. 10:28:14 History and physical on the chart or being dictated. Assessment: Initial Case, HR=69 BPM, Rhythm=reg, IMPV=590/73 mmhg, Chest Pain=0, Edema=None, Co uzma=Normal, Skin = Warm, Dry Right Pulses: Kenneth Ped=2, Femoral=2 Left Pulses: Kenneth Ped=2, Femoral=2 10:28:15 Lower Right Extremities: Color=Normal Lower Left Extremities: Color=Normal Neurological: State=Alert, Ox3, DALE Respiration: Resp=20 B/min, SpO2=98 %, Comment=Tempurature 97.7 oral 10:28:35 Platlets infusing Vitals capture started with the following parameters, Patient=Adult, Interval=5 min, Initial Pr wayrhc=221 mmHg, 10:39:52 Deflation Rate=5 mmHg, Cuff placed on Left Arm 10:40:28 HR=79 bpm, IVRB=920/73 mmhg, SpO2=98.0 %, Resp=13 B/min, Pain=0, Amisha=10, Cameron=2 10:46:04 HR=68 bpm, ABXM=829/79 mmhg, SpO2=97.0 %, Resp=23 B/min, Pain=0, Amisha=10, Cameron=2 10:48:28 A # 22 IV was noted in the Hand (left). Grade = 0 Time Out. Correct patient, correct procedure, correct physician, power injector not loaded with contrast with surgical 10:48:55 team present. Time Out Concurred by MD and individual staff in procedure. 10:49:35 Case Start 10:49:38 20 mL 1% XYLOCAINE given in lab by Kadeem Zendejas in Right Groin via Subcutaneous. 10:50:30 HR=79 bpm, PAWF=417/78 mmhg, SpO2=98.0 %, Resp=28 B/min, Pain=0, Amisha=10, Cameron=2 10:51:11 50 mcg FENTANYL given in lab by Karlee Aragon RN in Left Hand via Peripheral IV. Ordered by Kadeem Zendejas. 10:51:40 Reference ECG taken 10:52:05 Access site was Right Femoral Artery. 10:52:29 A SHEATH, FR6.5 PRELUDE 11CM FR 6.5 was advanced into the Fem Art (right) using the Percuta neous technique. 10:52:40 2 mg VERSED given in lab by Karlee Aragon RN in Left Hand via Peripheral IV. 10:53:14 Pressure channel 1 zeroed. 10:55:33 HR=67 bpm, OTSV=428/53 mmhg, Resp=14 B/min, Pain=0, Amisha=10, Cameron=2 10:59:16 Temperature taken orally 97.7 10:59:27 Access site was Right Femoral Vein. 10:59:33 A SHEATH, FR6.5 PRELUDE 11CM FR 6.5 was advanced into the Fem Vein (right) using the Percut aneous technique. 11:00:18 20 mL 1% XYLOCAINE given in lab by Karlee Aragon RN in Left Groin via Subcutaneous. 11:00:28 HR=82 bpm, ZDOG=571/50 mmhg, SpO2=95.0 %, Resp=14 B/min, Pain=0, Amisha=10, Cameron=2 11:00:48 30 KASSIDY INDEFLATOR added. 11:03:15 A PACING CATHETER J CURVE FR 5 was advanced to the right ventricle. Rate = 80 11:03:19 5000 units HEPARIN given in lab by Kelly Wren RN in Left Hand via Peripheral IV. 11:05:27 HR=69 bpm, QOGQ=199/57 mmhg, Resp=14 B/min, Pain=0, Amisha=10, Cameron=2 11:08:07 Access site was Left Femoral Artery. 11:08:12 A SHEATH, FR5.5 PRELUDE 11CM FR 5 was advanced into the Fem Art (left) using the Percutaneo us technique. 11:08:27 Access site was Left Femoral Artery for baloon pump sheath An BALLOON, FR8 50CC SENSATION PLUS FR 8 50CC was advanced to the descending aorta. Proper plac ement was 11:09:26 confired under fluoroscopy and the balloon was sutured in place. Ratio = 1. Augmented BP 120/~D IA~ 11:10:28 HR=66 bpm, UZQC=927/56 mmhg, SpO2=97.0 %, Resp=14 B/min, Pain=0, Amisha=10, Cameron=2 11:10:57 Activated Clotting Time Drawn 11:11:04 Temp pacer on. Output 5, sensitivity 3, rate 40 A AL 1 DXTERITY CATHETER FR 5 was advanced over a wire. OMNIPAQUE, 350 MG, 150ML 150ML was used for 11:11:36 injections. 11:13:40 A WIRE, STRAIGHT TIP .035 * was inserted via Fem Art (left). 11:16:06 HR=63 bpm, JMQF=211/62 mmhg, SpO2=96.0 %, Resp=14 B/min, Pain=0, Amisha=10, Cameron=2 11:18:29 2000 units HEPARIN given in lab by Kelly Wren, RN in Left Hand via Peripheral IV. 11:19:06 Catheter was removed 11:19:59 Platelet infusion finished. 11:20:59 HR=64 bpm, UCAF=390/75 mmhg, SpO2=98.0 %, Resp=13 B/min, Pain=0, Amisha=10, Cameron=2 11:21:53 A WIRE, RUNTHROUGH NS FLOPPY .014 180CM 180CM was inserted via Fem Art (right). 11:23:18 Wire removed 11:23:22 A WIRE, RUNTHROUGH NS FLOPPY .014 180CM 180CM was inserted via Fem Art (right). 11:25:30 HR=65 bpm, JRYT=769/84 mmhg, SpO2=99.0 %, Resp=18 B/min, Pain=0, Amisha=10, Cameron=2 An STENT, 4.0 9 INTEGRITY 4.0 9 Bare Metal Stent was inserted through a XB 3.5 SH GUIDE CATHETE R FR 6 over a 11:26:22 WIRE, RUNTHROUGH NS FLOPPY .014 180CM 180CM. A STENT, 4.0 9 INTEGRITY 4.0 9 was deployed using a 30 KASSIDY INDEFLATOR at 9 atmospheres for 10 s econds in the 11:28:18 Lft Main. 11:29:00 Re-inflated the stent balloon in the Lft Main to 4 KASSIDY for 5 seconds. 11:30:03 Delivery device removed 11:31:08 HR=66 bpm, EBOW=618/83 mmhg, NdO9=306.0 %, Resp=27 B/min, Pain=0, Amisha=10, Cameron=2 A BALLOON, 4.0 X 8MM NC EUPHORA 8MM was inserted over WIRE, RUNTHROUGH NS FLOPPY .014 180CM 180 CM via 11:31:50 the Fem Art (right). A BALLOON, 4.0 X 8MM NC EUPHORA 8MM over a WIRE, RUNTHROUGH NS FLOPPY .014 180CM 180CM in the L ft Main 11:32:06 was inflated using a 30 KASSIDY INDEFLATOR at 18 kassidy for 10 sec. 11:32:58 The LCA was injected and visualized at various angles. OMNIPAQUE, 350 MG, 150ML 150ML used . 11:33:31 Balloon Removed 11:33:38 Wire removed 11:33:44 Temp pacer removed. 11:34:22 Balloon pump off 11:35:01 Balloon pump removed 11:35:38 HR=69 bpm, NTUJ=917/63 mmhg, InB3=348.0 %, Resp=29 B/min, Pain=0, Amisha=10, Cameron=2 11:36:15 Case End 11:36:53 Catheter(s) removed without difficulty 11:37:01 No case complications noted. 11:37:03 Cine recording checked. 11:37:08 Bedside Report will be given. 11:37:09 Implantable Device card placed in patient's chart. 11:37:33 In the Fem Art (right) the SHEATH, FR6.5 PRELUDE 11CM FR 6.[address] by Connie Linares, RT(R). 11:38:02 Temperature taken orally 97.7 11:38:15 A-LINE connected to 6.5FR sheath in RFA. 11:39:27 In the Fem Vein (right) the SHEATH, FR6.5 PRELUDE 11CM FR 6.[address] by Connie Linares, RT(R). 11:39:35 In the Fem Art (left) the SHEATH, FR5.5 PRELUDE 11CM FR [address] by Catherine Linares RT(R). 11:39:43 In the Fem Art (left) the sheath was sutured in place by Connie Linares RT(R). 11:39:51 Venous line connected to 6.5fr sheath in RFV. 11:40:33 HR=70 bpm, BUDG=444/66 mmhg, SpO2=99.0 %, Resp=27 B/min, Pain=0, Amisha=10, Cameron=2 11:40:45 A-LINE connected to 5.5fr sheath in RFA. 11:45:34 HR=78 bpm, ZRJC=691/68 mmhg, EzL4=707.0 %, Resp=22 B/min, Pain=0, Amisha=10, Cameron=2 11:45:45 Sterile dressing applied to bilateral sites 11:45:47 Activated Clotting Time Drawn 11:49:37 600 mg PLAVIX given in lab by Kelly Wren, MEÑO via Oral. 11:51:08 HR=90 bpm, YODQ=261/94 mmhg, VvD3=449.0 %, Resp=13 B/min 11:55:17 Vitals capture stopped. Assessment: Final Case, HR=90 BPM, Rhythm=sr, AEGC=332/94 mmhg, Chest Pain=0 Right Pulses: Kenneth Ped=2, Femoral=2 12:00:04 Left Pulses: Kenneth Ped=2, Femoral=2 Neurological: State=Alert, Ox3, DALE Respiration: Resp=13 B/min, SiW8=338 %, O2=2 lpm 12:00:21 Patient moved to bed 12:03:03 Patient transported to [facility]. End Study - Contrast Media Used In Study Contrast Total Opened (mL) Total Used (mL) Total Wasted (mL) Omnipaque 65 65 0 End Study - Maximum Contrast Load Max Contrast Load (mL) 263.9 End Study - Radiation Exposure Fluoro Time (minutes) 13.9 End Study - Patient Disposition Complications Transferred To Interventional Outcome No Telemetry Bed successful
[2017-06-03] MEDS ORDERED: IOHEXOL 350 MG/ML 100 ML BTL (for Cath Lab) OTHER ONE (13:01)
--- NOTE | 2017-06-03 13:24 | PD.ONC.PN ---
Subjective Subjective Remarks Afebrile overnight. Patient resting in bed in nad. No complaints. Objective Data Date Time Temp Pulse Resp B/P (MAP) Pulse Ox O2 Delivery O2 Flow Rate FiO2 06/03/17 10:25 97.9 74 16 118/70 98 06/03/17 10:00 77 06/03/17 09:00 74 06/03/17 08:00 81 06/03/17 07:00 98.3 75 14 110/69 (83) 96 06/03/17 07:00 79 06/03/17 07:00 Room Air 06/03/17 06:00 76 06/03/17 05:00 74 06/03/17 04:00 67 06/03/17 03:00 Room Air 06/03/17 03:00 63 06/03/17 03:00 97.8 73 18 117/81 (93) 97 06/03/17 02:00 64 06/03/17 01:00 68 06/03/17 00:00 73 06/02/17 23:00 Room Air 06/02/17 23:00 97.9 72 18 115/75 (88) 96 06/02/17 23:00 75 06/02/17 22:00 84 06/02/17 21:00 86 06/02/17 20:00 99.1 86 18 113/67 (82) 95 06/02/17 20:00 86 06/02/17 20:00 Room Air 06/02/17 19:00 104 06/02/17 18:14 111 06/02/17 17:37 98 06/02/17 16:00 78 06/02/17 15:38 96 Room Air 06/02/17 15:38 98.2 80 16 111/64 (80) 96 06/02/17 15:00 83 06/02/17 14:00 80 06/03/17 06/03/17 06/03/17 07:00 15:00 23:00 Intake Total 240 ml 30 ml Balance 240 ml 30 ml Result Diagram: 06/03/17 0442 06/01/17 0842 Laboratory Results Laboratory Tests Test 06/02/17 15:12 06/03/17 04:42 Haptoglobin 39 MG/DL Total Bilirubin 0.8 MG/DL Direct Bilirubin 0.3 MG/DL Indirect Bilirubin 0.5 MG/DL Aspartate Amino Transf (AST/SGOT) 21 U/L Alanine Aminotransferase (ALT/SGPT) 22 U/L Alkaline Phosphatase 62 U/L Lactate Dehydrogenase 330 U/L Total Protein 7.1 GM/DL Albumin 3.5 GM/DL White Blood Count 7.9 TH/MM3 Red Blood Count 5.15 MIL/MM3 Hemoglobin 15.3 GM/DL Hematocrit 44.8 % Mean Corpuscular Volume 87.0 FL Mean Corpuscular Hemoglobin 29.8 PG Mean Corpuscular Hemoglobin Concent 34.2 % Red Cell Distribution Width 14.9 % Platelet Count 60 TH/MM3 Mean Platelet Volume 10.2 FL Neutrophils (%) (Auto) 86.5 % Lymphocytes (%) (Auto) 12.3 % Monocytes (%) (Auto) 1.2 % Eosinophils (%) (Auto) 0.0 % Basophils (%) (Auto) 0.0 % Neutrophils # (Auto) 6.9 TH/MM3 Lymphocytes # (Auto) 1.0 TH/MM3 Monocytes # (Auto) 0.1 TH/MM3 Eosinophils # (Auto) 0.0 TH/MM3 Basophils # (Auto) 0.0 TH/MM3 CBC Comment AUTO DIFF Differential Total Cells Counted 100 Neutrophils % (Manual) 76 % Band Neutrophils % 11 % Lymphocytes % 13 % Neutrophils # (Manual) 6.9 TH/MM3 Differential Comment FINAL DIFF MANUAL Platelet Estimate LOW Platelet Morphology Comment ENLARGED Ovalocytes 2+ Administered Medications Medications (Trade) Dose Ordered Sig/Abelino Route PRN Reason Start Time Stop Time Status Last Admin Dose Admin Sodium Chloride (NS Flush) 2 ml BID IV FLUSH 05/29/17 21:00 06/03/17 09:14 Acetaminophen (Tylenol) 650 mg Q4H PRN PO TEMP > 100.4 05/29/17 17:45 05/30/17 06:08 Metoprolol Tartrate (Lopressor) 50 mg Q12HR PO 05/30/17 21:00 06/03/17 09:14 Aspirin (Aspirin Chew) 81 mg DAILY PO 06/01/17 09:45 06/03/17 09:14 Atorvastatin Calcium (Lipitor) 40 mg DAILY PO 06/01/17 09:45 06/03/17 09:14 Objective Remarks GENERAL: Elderly male lying in bed in nad SKIN: Warm and dry. HEAD: Normocephalic. EYES: No injection or drainage. NECK: Supple, trachea midline. CARDIOVASCULAR: +S1/S2 RESPIRATORY: anterior cornelius clear. GASTROINTESTINAL: Abdomen soft, nondistended. EXTREMITIES: No cyanosis MUSCULOSKELETAL: Adequate muscle tone. Assessment/Plan Problem List: (1) Thrombocytopenia ICD Codes: D69.6 - Thrombocytopenia, unspecified Status: Chronic Plan: --severe likely causing chronic mild hemolysis/thrombocytopenia --no evidence of DIC --no history of liver disease or splenomegaly. --hepatitis panel negative. --abdominal ultrasound shows no splenomegaly. --LE US shows no DVT --peripheral smear pending. 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 --less likely that he has underlying MDS, however, it is a possibility. will defer further workup regarding MDS to outpatient basis. (2) Aortic stenosis, severe ICD Codes: I35.0 - Nonrheumatic aortic (valve) stenosis Status: Acute Plan: --Severe aortic stenosis currently being evaluated by cardiology and cardiothoracic surgery. Assessment 82y.o male with thrombocytopenia and severe aortic stenosis. history of chronic kidney disease, hypertension and chronic thrombocytopenia. Plan 1. monitor CBC 2. give platelet transfusion 30minutes prior to PCI Attending Statement The exam, history, and the medical decision-making described in the above note were completed with the assistance of the mid-level provider. I reviewed and agree with the findings presented. I attest that I had a [id number] encounter with the patient on the same day, and personally performed and documented my assessment and findings in the medical record Savannah Porras Jun 03, 2017 13:24 Wily Scott MD Jun 04, 2017 03:02
--- NOTE | 2017-06-03 13:38 | PD.CONS ---
History of Present Illness Service CT Surgery Consult Requested By Dr. 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 He had run out of his medication of metoprolol for a couple of days. A head CT scan was negative for acute issues. His EKG showed some indeterminate axis, right bundle-branch block. His troponins were elevated and he was transferred here. He underwent a nuclear stress test which showed partially reversible stress induced perfusion abnormality inferior wall, inferior apical region of the left ventricle, some mild left ventricular dilation with hypokinetic inferior wall, EF of 43%. He underwent cardiac cath today by Dr. Zendejas with an EF showing 30%, left main 90%, RCA 80%. He also underwent echocardiogram which showed severe aortic stenosis with a valve area 0.43, mean gradient of 72, mild tricuspid regurgitation, mild mitral regurgitation, EF of 35-40%. He was seen by Dr. Mir and deemed a poor operative candidate. Today, he underwent PCI of the left main coronary artery. He is being considered for TAVR Review of Systems Constitutional: COMPLAINS OF: Fatigue, DENIES: Diaphoretic episodes, Fever, Weight gain, Weight loss, Chills, Dizziness, Change in appetite, Night Sweats Endocrine: DENIES: Heat/cold intolerance, Polydipsia, Polyuria, Polyphagia Eyes: DENIES: Blurred vision, Diplopia, Eye inflammation, Eye pain, Vision loss , Photosensitivity, Double Vision Ears, nose, mouth, throat: DENIES: Tinnitus, Hearing loss, Vertigo, Nasal discharge, Oral lesions, Throat pain, Hoarseness, Ear Pain, Running Nose, Epistaxis, Sinus Pain, Toothache, Odynophagia Respiratory: COMPLAINS OF: Cough, Shortness of breath, DENIES: Apneas, Snoring , Wheezing, Hemoptysis, Sputum production Cardiovascular: COMPLAINS OF: Chest pain, Dyspnea on Exertion, DENIES: Palpitations, Syncope, PND, Lower Extremity Edema, Orthopnea, Claudication Gastrointestinal: DENIES: Abdominal pain, Black stools, Bloody stools, Constipation, Diarrhea, Nausea, Vomiting, Difficulty Swallowing, Anorexia Genitourinary: DENIES: Sexual dysfunction, Urinary frequency, Urinary incontinence, Urgency, Hematuria, Dysuria, Nocturia, Penile Discharge, Testicular Pain, Testicular Swelling Musculoskeletal: COMPLAINS OF: Muscle aches, Stiffness, DENIES: Joint pain, Joint Swelling, Back pain, Neck pain Integumentary: DENIES: Abnormal pigmentation, Nail changes, Pruritus, Rash Hematologic/lymphatic: DENIES: Bruising, Lymphadenopathy Immunologic/allergic: DENIES: Eczema, Urticaria Neurologic: DENIES: Abnormal gait, Headache, Localized weakness, Paresthesias, Seizures, Speech Problems, Tremor, Poor Balance Psychiatric: DENIES: Anxiety, Confusion, Mood changes, Depression, Hallucinations, Agitation, Suicidal Ideation, Homicidal Ideation, Delusions Past Family Social History Allergies: Coded Allergies: ciprofloxacin (Unverified Allergy, Mild, RASH, 05/29/17) Past Medical History PAST MEDICAL HISTORY 1. Chronic kidney disease stage III. He follows with a mine deputy in [place]. 2. Hypertension, 3. Rheumatoid arthritis. 4. 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 PAST SURGICAL HISTORY 1. Right shoulder surgery, 2. Hemorrhoidectomy. MEDICATIONS Home include 1. Metoprolol 100 p.o. b.i.d. 2. Norvasc 10 p.o. daily. 3. Lisinopril 20 p.o. daily. FAMILY HISTORY Father from complications of diabetes. Mother had a stroke. SOCIAL HISTORY The patient smoked for 40 years. He quit 20 years ago. No alcohol. He is with two children. His daughter lives nearby, Nicole Curran, who will acting as his healthcare surrogate. Active Ordered Medications Current Medications Medications (Trade) Dose Ordered Sig/Abelino Route Start Time Stop Time Status Last Admin (NS Flush) 2 ml UNSCH PRN IV FLUSH 05/29/17 17:45 (NS Flush) 2 ml BID IV FLUSH 05/29/17 21:00 06/03/17 09:14 (Tylenol) 650 mg Q4H PRN PO 05/29/17 17:45 05/30/17 06:08 (Zofran Inj) 4 mg Q6H PRN IVP 05/29/17 17:45 (Narcan Inj) 0.4 mg UNSCH PRN IV PUSH 12/10/17 17:45 (Milk Of Magnesia Liq) 30 ml Q12H PRN PO 05/29/17 17:45 (Nitrostat Sl) 0.4 mg Q5M PRN SL 05/29/17 17:45 (Lopressor) 50 mg Q12HR PO 05/30/17 21:00 06/03/17 09:14 (Percocet 5-325 Mg) 1 tab Q4H PRN PO 05/31/17 12:00 (Percocet 5-325 Mg) 2 tab Q4H PRN PO 05/31/17 12:00 Papaverine HCl 60 mg/Nitroglycerin 100 mcg/Diltiazem HCl 100 mg/Sodium Chloride 100 ml @ 0 mls/hr [employer]ATION 05/31/17 16:00 06/07/17 15:59 (Aspirin Chew) 81 mg DAILY PO 06/01/17 09:45 06/03/17 09:14 (Lipitor) 40 mg DAILY PO 06/01/17 09:45 06/03/17 09:14 Heparin Sodium/ Dextrose 250 ml @ 10 mls/hr TITRATE PRN IV 06/01/17 08:30 (Plavix) 75 mg DAILY PO 06/04/17 09:00 (Atropine Inj) 0.5 mg UNSCH PRN IV PUSH 06/03/17 11:45 Sodium Chloride 250 ml @ 500 mls/hr ONCE PRN IV 06/03/17 11:45 06/04/17 11:44 (Reglan Inj) 10 mg Q4H PRN IV PUSH 06/03/17 11:45 (Xylocaine 1% Inj (50 ml)) 10 ml UNSCH PRN INFIL 06/03/17 11:45 06/04/17 11:44 Physical Exam Vital Signs Vital Signs Date Time Temp Pulse Resp B/P (MAP) Pulse Ox O2 Delivery O2 Flow Rate FiO2 06/03/17 10:25 97.9 74 16 118/70 98 06/03/17 10:00 77 06/03/17 09:00 74 06/03/17 08:00 81 06/03/17 07:00 98.3 75 14 110/69 (83) 96 06/03/17 07:00 79 06/03/17 07:00 Room Air 06/03/17 06:00 76 06/03/17 05:00 74 06/03/17 04:00 67 06/03/17 03:00 Room Air 06/03/17 03:00 63 06/03/17 03:00 97.8 73 18 117/81 (93) 97 06/03/17 02:00 64 06/03/17 01:00 68 06/03/17 00:00 73 06/02/17 23:00 Room Air 06/02/17 23:00 97.9 72 18 115/75 (88) 96 06/02/17 23:00 75 06/02/17 22:00 84 06/02/17 21:00 86 06/02/17 20:00 99.1 86 18 113/67 (82) 95 06/02/17 20:00 86 06/02/17 20:00 Room Air 06/02/17 19:00 104 06/02/17 18:14 111 06/02/17 17:37 98 06/02/17 16:00 78 06/02/17 15:38 96 Room Air 06/02/17 15:38 98.2 80 16 111/64 (80) 96 06/02/17 15:00 83 06/02/17 14:00 80 Physical Exam GENERAL: This is a well-nourished, well-developed patient, in no apparent distress. SKIN: No rashes, ecchymoses or lesions. Cool and dry. HEAD: Atraumatic. Normocephalic. No temporal or scalp tenderness. EYES: Pupils equal round and reactive. Extraocular motions intact. No scleral icterus. No injection or drainage. ENT: Nose without bleeding, purulent drainage or septal hematoma. Throat without erythema, tonsillar hypertrophy or exudate. Uvula midline. Airway patent. NECK: Trachea midline. No JVD or lymphadenopathy. Supple, nontender, no meningeal signs. CARDIOVASCULAR: Regular rate and rhythm with 2/6 ASHLEY. RESPIRATORY: Clear to auscultation. Breath sounds equal bilaterally. No wheezes , rales, or rhonchi. GASTROINTESTINAL: Abdomen soft, non-tender, nondistended. No hepato-splenomegaly , or palpable masses. No guarding. MUSCULOSKELETAL: Extremities without clubbing, cyanosis, or edema. No joint tenderness, effusion, or edema noted. No calf tenderness. Negative Homans sign bilaterally. NEUROLOGICAL: Awake and alert. Cranial nerves II through XII intact. Motor and sensory grossly within normal limits. Five out of 5 muscle strength in all muscle groups. Normal speech. Laboratory Laboratory Tests Test 06/02/17 15:12 06/03/17 04:42 Haptoglobin 39 Total Bilirubin 0.8 Direct Bilirubin 0.3 Indirect Bilirubin 0.5 Aspartate Amino Transf (AST/SGOT) 21 Alanine Aminotransferase (ALT/SGPT) 22 Alkaline Phosphatase 62 Lactate Dehydrogenase 330 Total Protein 7.1 Albumin 3.5 White Blood Count 7.9 Red Blood Count 5.15 Hemoglobin 15.3 Hematocrit 44.8 Mean Corpuscular Volume 87.0 Mean Corpuscular Hemoglobin 29.8 Mean Corpuscular Hemoglobin Concent 34.2 Red Cell Distribution Width 14.9 Platelet Count 60 Mean Platelet Volume 10.2 Neutrophils (%) (Auto) 86.5 Lymphocytes (%) (Auto) 12.3 Monocytes (%) (Auto) 1.2 Eosinophils (%) (Auto) 0.0 Basophils (%) (Auto) 0.0 Neutrophils # (Auto) 6.9 Lymphocytes # (Auto) 1.0 Monocytes # (Auto) 0.1 Eosinophils # (Auto) 0.0 Basophils # (Auto) 0.0 CBC Comment AUTO DIFF Differential Total Cells Counted 100 Neutrophils % (Manual) 76 Band Neutrophils % 11 Lymphocytes % 13 Neutrophils # (Manual) 6.9 Differential Comment FINAL DIFF MANUAL Platelet Estimate LOW Platelet Morphology Comment ENLARGED Ovalocytes 2+ Result Diagram: 06/03/17 0442 06/01/17 0842 Imaging Last Impressions Abdomen Ultrasound 06/01/17 0600 Signed Impressions: Service Date/Time: Thursday, June 01, 2017 07:52 - CONCLUSION: 1. Unremarkable abdominal sonogram. 2. No evidence for cholelithiasis. Sterling Awan MD Chest CT 06/01/17 0000 Signed Impressions: Service Date/Time: Thursday, June 01, 2017 13:49 - CONCLUSION: 1. Small bilateral pulmonary nodules. The largest measuring 6.7 mm is located in the left upper lobe. 6 month followup is recommended. 2. Heavily calcified aortic valve without aneurysmal artery of the ascending aorta. 3. Calcific coronary artery disease. 4. Chronic airway disease and pleural-parenchymal scarring in the right lung base. Demian George MD Lower Extremity Ultrasound 05/31/17 0000 Signed Impressions: Service Date/Time: Wednesday, May 31, 2017 16:23 - CONCLUSION: 1. Venous mapping as above. 2. Could not identify the distal below-knee portion of the right greater saphenous vein. Superficial veins are otherwise patent. Fco Beverly MD Myocardial [place]fusion [place] [facility] 05/30/17 0000 Signed Impressions: Service Date/Time: Tuesday, May 30, 2017 12:39 - CONCLUSION: 1. Partially reversible Stress-induced perfusion abnormality in the inferior wall and inferoapical region of the left ventricle. 2. Mild left ventricular chamber dilatation with hypokinetic inferior wall. 3. Decreased ejection fraction of 43%%. RISK CATEGORY: Intermediate (1-3%% Annual Mortality Rate) Demian George MD Carotid Artery Ultrasound 05/30/17 0000 Signed Impressions: Service Date/Time: Tuesday, May 30, 2017 08:01 - CONCLUSION: Mild atherosclerotic disease. No evidence of hemodynamically significant stenosis. Demian George MD Chest X-Ray 05/29/17 1736 Signed Impressions: Service Date/Time: Tuesday, May 30, 2017 04:30 - CONCLUSION: The lungs are clear. Reginaldo Anne MD Course Patient underwent high-risk left main PCI today. He has had formal frailty testing and is 3/4 frail. Assessment and Plan Problem List: (1) Combined systolic and diastolic congestive heart failure ICD Codes: I50.40 - Unspecified combined systolic (congestive) and diastolic ( congestive) heart failure (2) CAD (coronary artery disease) ICD Codes: I25.10 - Atherosclerotic heart disease of [place] coronary artery without angina pectoris (3) Thrombocytopenia ICD Codes: D69.6 - Thrombocytopenia, unspecified Status: Chronic Plan: Hematology has been consulted (4) Aortic stenosis, severe ICD Codes: I35.0 - Nonrheumatic aortic (valve) stenosis Status: Acute (5) Cardiomyopathy ICD Codes: I42.9 - Cardiomyopathy, unspecified Status: Acute (6) CKD (chronic kidney disease) stage 3, GFR 30-59 ml/min ICD Codes: N18.3 - Chronic kidney disease, stage 3 (moderate) Status: Chronic (7) HTN (hypertension) ICD Codes: I10 - Essential (primary) hypertension Status: Chronic Assessment and Plan 82 y/o male presents with CAD and severe with decreased LV function. He has been seen by Dr. Mir and is a high-risk candidate for open AVR. His STS mortality is ~9% and he also his frail. He should not be considered for open AVR and would likely do well with TAVR. Problem Qualifiers (1) CAD (coronary artery disease): Qualified Codes: I25.119 - Atherosclerotic heart disease of [place] coronary artery with unspecified angina pectoris (2) Combined systolic and diastolic congestive heart failure: Qualified Codes: I50.43 - Acute on chronic combined systolic (congestive) and diastolic (congestive) heart failure (3) Cardiomyopathy: Qualified Codes: I25.5 - Ischemic cardiomyopathy Meryl Arboleda MD Jun 03, 2017 13:38
--- NOTE | 2017-06-03 13:40 | MA ---
cc: CHEYENNEPALOMOALESHA DATE: 06/03/2017 PROCEDURE PERFORMED 1. Fluoroscopy with interpretation. 2. Coronary angiography. 3. Percutaneous intervention with bare metal stent to the left main coronary artery. 4. Temporary transvenous pacemaker placement. 5. Intra-aortic balloon pump placement. METHOD The risks, benefits and alternatives were discussed with the patient. The patient understood and consented to the procedure. The patient was brought into the catheterization lab and placed on the catheterization table. Bilateral groins were prepped and draped in sterile fashion. The right groin was anesthetized with 2% lidocaine. The right common femoral artery was cannulated and a 6 Togolese 11 cm sheath was placed without difficulty. The right femoral vein was accessed and a 6 Togolese sheath was placed without difficulty. The left common femoral was accessed and a 6 Togolese 11 cm sheath was placed without difficulty. TEMPORARY TRANSVENOUS PACEMAKER PLACEMENT A 5 Togolese balloon-tip temporary transvenous pacemaker was advanced through the right femoral venous sheath to the level of the right ventricular apex. Pacing and capture was confirmed. Backup pacing was set at 50 beats per minute. INTRA-ABDOMINAL BALLOON PUMP PLACEMENT A 40 cc Datascope intra-aortic balloon pump was advanced through the left femoral arterial sheath to the level of the descending aorta. Intra-aortic balloon pump was initiated 1:1 inflation with good augmentation. CORONARY ANGIOGRAPHY 1. The left main coronary has a 90% ostial stenosis. 2. The left anterior descending coronary and left circumflex coronary have minor luminal irregularities. PERCUTANEOUS INTERVENTION A 6 Togolese XB 3.5 guide catheter was advanced into the left main coronary artery. A 0.014, 180 cm Terumo Runthrough wire was navigated down to the distal left anterior descending coronary artery without difficulty. A 4.0 x 9 mm Integrity bare metal stent was deployed in the ostium of the left main. A 4.5 x 10 mm noncompliant balloon was then post dilated at the ostium of the left main extending slightly into the aorta. Repeat angiography showed no residual stenosis, DIRK-III flow. The wire was removed. The guide catheter was removed. The intra-aortic balloon pump was removed. The temporary transvenous pacemaker was removed. The patient received heparin throughout the entire procedure to maintain appropriate anticoagulation. All sheaths were sewn into place to be removed with manual hemostasis. CONCLUSIONS 1. Successful percutaneous intervention with a bare metal stent to the ostial left main coronary artery. 2. Successful utilization of temporary transvenous pacemaker. 3. Successful placement of intra-aortic balloon pump. PLAN Will follow the patient post procedure. Will initiate Plavix. Will allow him some time for recovery, particularly with his renal function and then work him up as an outpatient with CT scan of the chest for transcatheter aortic valve replacement. Hopefully can be discharged in the next 24-48 hours. MD SHAWNA Scanlon/RIVER /11:46 AM /1:19 PM
--- NOTE | 2017-06-03 15:03 | EKG ---
Date Performed: 06/03/2017 Time Performed: 12:27:01 PTAGE: 82 years EKG: Sinus rhythm VOLTAGE CRITERIA FOR LVH NONSPECIFIC ST ABNORMALITIES ABNORMAL ECG PREVIOUS TRACING : 05/30/2017 05.56 Compared to previous tracing, right bundle branch block is no longer evident, voltage criteria for LVH is now present. DOCTOR: Bryan House Interpretating Date/Time 06/03/2017 15:02:41
[2017-06-03] MEDS ORDERED: ATROPINE SULFATE 1 MG/10 ML SYRINGE ONE (15:30)
[2017-06-04] VITALS (14 sets, daily range): BP systolic 101–137; BP diastolic 58–83; PULSE 64–102; RESP 16–18; TEMP 97.9–98.4; O2SAT 96–99
[2017-06-04 06:54] LABS: AUTOMATED NEUTROPHIL # 8.8 TH/MM3 (1.8-7.7); BASOPHIL % 0.2 % (0.0-2.0); EOSINOPHIL % 0.1 % (0.0-4.0); HEMATOCRIT 38.7 % (39.0-51.0); LYMPH % 19.5 % (9.0-44.0); LYMPHOCYTE # 2.4 TH/MM3 (1.0-4.8); MEAN CELL VOLUME 87.1 FL (80.0-100.0); MEAN CORPUSCULAR HEMOGLOBIN 30.1 PG (27.0-34.0); MEAN CORPUSCULAR HGB CONC 34.5 % (32.0-36.0); NEUT % 71.2 % (16.0-70.0); PLATELET COUNT 95 TH/MM3 (150-450); RED BLOOD COUNT 4.44 MIL/MM3 (4.50-5.90); RED CELL DISTRIBUTION WIDTH 15.1 % (11.6-17.2); WHITE BLOOD COUNT 12.3 TH/MM3 (4.0-11.0)
[2017-06-04 06:59] LABS: HEMO FLAGS AUTO DIFF
[2017-06-04 07:20] LABS: BICARBONATE 22.3 MEQ/L (21.0-32.0); HDL CHOLESTEROL 60.2 MG/DL (40.0-60.0); INDIRECT BILIRUBIN 0.3 MG/DL (0.0-0.8); POTASSIUM 4.5 MEQ/L (3.5-5.1); TOTAL BILIRUBIN ADULT 0.6 MG/DL (0.2-1.0)
--- NOTE | 2017-06-04 08:34 | PD.CARD.PN ---
Subjective Subjective Remarks denies chest pain or sob. resting comfortably (Genesis Carlson) Objective Medications Current Medications Medications (Trade) Dose Ordered Sig/Abelino Route Start Time Stop Time Status Last Admin (NS Flush) 2 ml UNSCH PRN IV FLUSH 05/29/17 17:45 (NS Flush) 2 ml BID IV FLUSH 05/29/17 21:00 06/03/17 20:04 (Tylenol) 650 mg Q4H PRN PO 05/29/17 17:45 05/30/17 06:08 (Zofran Inj) 4 mg Q6H PRN IVP 05/29/17 17:45 (Narcan Inj) 0.4 mg UNSCH PRN IV PUSH 05/29/17 17:45 (Milk Of Magnesia Liq) 30 ml Q12H PRN PO 05/29/17 17:45 (Nitrostat Sl) 0.4 mg Q5M PRN SL 05/29/17 17:45 (Lopressor) 50 mg Q12HR PO 05/30/17 21:00 06/03/17 20:04 (Percocet 5-325 Mg) 1 tab Q4H PRN PO 05/31/17 12:00 (Percocet 5-325 Mg) 2 tab Q4H PRN PO 05/31/17 12:00 06/03/17 20:07 Papaverine HCl 60 mg/Nitroglycerin 100 mcg/Diltiazem HCl 100 mg/Sodium Chloride 100 ml @ 0 mls/hr [employer]ATION 05/31/17 16:00 06/07/17 15:59 (Aspirin Chew) 81 mg DAILY PO 06/01/17 09:45 06/03/17 09:14 (Lipitor) 40 mg DAILY PO 06/01/17 09:45 06/03/17 09:14 Heparin Sodium/ Dextrose 250 ml @ 10 mls/hr TITRATE PRN IV 06/01/17 08:30 (Plavix) 75 mg DAILY PO 06/04/17 09:00 (Atropine Inj) 0.5 mg UNSCH PRN IV PUSH 06/03/17 11:45 Sodium Chloride 250 ml @ 500 mls/hr ONCE PRN IV 06/03/17 11:45 06/04/17 11:44 (Reglan Inj) 10 mg Q4H PRN IV PUSH 06/03/17 11:45 (Xylocaine 1% Inj (50 ml)) 10 ml UNSCH PRN INFIL 06/03/17 11:45 06/04/17 11:44 Vital Signs / I&O Vital Signs Date Time Temp Pulse Resp B/P (MAP) Pulse Ox O2 Delivery O2 Flow Rate FiO2 06/04/17 08:00 77 06/04/17 07:00 Room Air 06/04/17 07:00 98.4 72 18 137/83 (101) 97 06/04/17 07:00 80 06/04/17 06:00 68 06/04/17 05:00 71 06/04/17 04:00 98.1 65 18 117/67 (84) 97 06/04/17 04:00 65 06/04/17 04:00 Room Air 06/04/17 03:00 69 06/04/17 02:00 64 06/04/17 01:00 70 06/04/17 00:00 98.3 66 18 101/58 (72) 99 06/04/17 00:00 Room Air 06/04/17 00:00 66 06/03/17 23:00 76 06/03/17 22:00 90 06/03/17 21:00 83 06/03/17 20:00 Room Air 06/03/17 20:00 88 06/03/17 20:00 98.0 88 18 111/65 (80) 97 06/03/17 18:24 79 06/03/17 17:44 76 06/03/17 16:00 79 06/03/17 15:00 97.3 69 18 115/75 (88) 96 06/03/17 15:00 Room Air 06/03/17 15:00 63 06/03/17 14:00 77 06/03/17 13:00 69 06/03/17 12:15 66 06/03/17 10:25 97.9 74 16 118/70 98 06/03/17 10:00 77 06/03/17 09:00 74 I/O 06/03/17 06/03/17 06/03/17 06/04/17 06/04/17 06/04/17 07:00 15:00 23:00 07:00 15:00 23:00 Intake Total 240 ml 317 ml 300 ml 480 ml 0 ml Output Total 700 ml 800 ml Balance 240 ml 317 ml -400 ml -320 ml 0 ml Intake Oral 240 ml 300 ml 480 ml 0 ml Platelets 287 ml Blood Product IV Normal Saline Flush 30 ml Output Urine Total 700 ml 800 ml # Voids 2 # Bowel Movements 0 0 Physical Exam GENERAL: SKIN: Warm and dry. HEAD: Atraumatic. Normocephalic. EYES: Pupils equal and round. ENT: No nasal bleeding or discharge. NECK: Trachea midline. No JVD. CARDIOVASCULAR: regular rate and rhythm. II/ systolic murmur LUSB RESPIRATORY: No accessory muscle use. Clear to auscultation. Breath sounds equal bilaterally. GASTROINTESTINAL: Abdomen soft, non-tender, nondistended. Hepatic and splenic margins not palpable. MUSCULOSKELETAL: Extremities without clubbing, cyanosis, or edema. No obvious deformities. NEUROLOGICAL: Awake and alert. No obvious cranial nerve deficits. Normal speech. PSYCHIATRIC: Appropriate mood and affect; insight and judgment normal. Laboratory Laboratory Tests Test 06/04/17 06:00 White Blood Count 12.3 TH/MM3 Red Blood Count 4.44 MIL/MM3 Hemoglobin 13.3 GM/DL Hematocrit 38.7 % Mean Corpuscular Volume 87.1 FL Mean Corpuscular Hemoglobin 30.1 PG Mean Corpuscular Hemoglobin Concent 34.5 % Red Cell Distribution Width 15.1 % Platelet Count 95 TH/MM3 Mean Platelet Volume 10.1 FL Neutrophils (%) (Auto) 71.2 % Lymphocytes (%) (Auto) 19.5 % Monocytes (%) (Auto) 9.0 % Eosinophils (%) (Auto) 0.1 % Basophils (%) (Auto) 0.2 % Neutrophils # (Auto) 8.8 TH/MM3 Lymphocytes # (Auto) 2.4 TH/MM3 Monocytes # (Auto) 1.1 TH/MM3 Eosinophils # (Auto) 0.0 TH/MM3 Basophils # (Auto) 0.0 TH/MM3 CBC Comment AUTO DIFF Blood Urea Nitrogen 45 MG/DL Creatinine 1.72 MG/DL Random Glucose 122 MG/DL Total Protein 6.7 GM/DL Albumin 3.2 GM/DL Calcium Level 8.6 MG/DL Alkaline Phosphatase 53 U/L Aspartate Amino Transf (AST/SGOT) 38 U/L Alanine Aminotransferase (ALT/SGPT) 35 U/L Lactate Dehydrogenase 363 U/L Total Bilirubin 0.6 MG/DL Direct Bilirubin 0.3 MG/DL Sodium Level 140 MEQ/L Potassium Level 4.5 MEQ/L Chloride Level 108 MEQ/L Carbon Dioxide Level 22.3 MEQ/L Anion Gap 10 MEQ/L Estimat Glomerular Filtration Rate 38 ML/MIN Indirect Bilirubin 0.3 MG/DL Total Creatine Kinase 129 U/L Triglycerides Level 99 MG/DL Cholesterol Level 108 MG/DL LDL Cholesterol 28 MG/DL HDL Cholesterol 60.2 MG/DL Cholesterol/HDL Ratio 1.79 RATIO (Genesis Carlson) Assessment and Plan Problem List: (1) Cardiomyopathy ICD Codes: I42.9 - Cardiomyopathy, unspecified Status: Acute (2) Aortic stenosis, severe ICD Codes: I35.0 - Nonrheumatic aortic (valve) stenosis Status: Acute (3) Elevated troponin ICD Codes: R74.8 - Abnormal levels of other serum enzymes Status: Acute (4) HTN (hypertension) ICD Codes: I10 - Essential (primary) hypertension Status: Chronic Assessment and Plan 82 yo WM with CAD, CKD, NSTEMI, cardiomyopathy with EF 35% and severe aortic stenosis. CAD- s/p PCI BMS to left main on 06/03/17 with temporary transvenous pacemaker placed. cont Plavix. severe - high risk for open AVR. will need a period of recovery from PCI, then will plan for TAVR (Genesis Carlson) Assessment and Plan doing well this am groins c/d/i. no hematoma asa plavix OK for DC today BMP later this week. then CT scan chest then TAVR probably June. (Kadeem Zendejas MD) Problem Qualifiers (1) Cardiomyopathy: Qualified Codes: I25.5 - Ischemic cardiomyopathy Genesis Carlson Jun 04, 2017 08:34 Kadeem Zendejas MD Jun 04, 2017 10:35
--- NOTE | 2017-06-04 08:50 | HHI.PR ---
Subjective Remarks feels well. was oob. no cp or sob Objective Vitals heart reg. fran rusb lung cta abd s/nt ext no edema Vital Signs Date Time Temp Pulse Resp B/P (MAP) Pulse Ox O2 Delivery O2 Flow Rate FiO2 06/04/17 08:00 77 06/04/17 07:00 Room Air 06/04/17 07:00 98.4 72 18 137/83 (101) 97 06/04/17 07:00 80 06/04/17 06:00 68 06/04/17 05:00 71 06/04/17 04:00 98.1 65 18 117/67 (84) 97 06/04/17 04:00 65 06/04/17 04:00 Room Air 06/04/17 03:00 69 06/04/17 02:00 64 06/04/17 01:00 70 06/04/17 00:00 98.3 66 18 101/58 (72) 99 06/04/17 00:00 Room Air 06/04/17 00:00 66 06/03/17 23:00 76 06/03/17 22:00 90 06/03/17 21:00 83 06/03/17 20:00 Room Air 06/03/17 20:00 88 06/03/17 20:00 98.0 88 18 111/65 (80) 97 06/03/17 18:24 79 06/03/17 17:44 76 06/03/17 16:00 79 06/03/17 15:00 97.3 69 18 115/75 (88) 96 06/03/17 15:00 Room Air 06/03/17 15:00 63 06/03/17 14:00 77 06/03/17 13:00 69 06/03/17 12:15 66 06/03/17 10:25 97.9 74 16 118/70 98 06/03/17 10:00 77 06/03/17 09:00 74 06/04/17 06/04/17 06/05/17 15:00 23:00 07:00 Intake Total 0 ml Balance 0 ml Intake Oral 0 ml Result Diagram: 06/04/17 0600 06/04/17 0600 A/P Problem List: (1) Cardiomyopathy ICD Codes: I42.9 - Cardiomyopathy, unspecified Status: Acute Plan: pt with htn and ckd 3 ran out of his metoprolol developed dizziness elevated troponin. 1. elevated troponin. no cp. lexiscan positive for ischmia. lhc LM dz s/p bms left main 06/03 2. 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 severe AVS. valve area .43cm2 and mean gradient 72mmHg 4. ckd 3 5. htn 6. thrombocytopenia. 2 d echo 05/30: The left ventricular systolic function is fqmeedll-kz-hudmauv reduced with an estimated ejection fraction in the range of 35-40%. Normal left ventricular size. Mild concentric left ventricular hypertrophy. Xvaer-zi-owpc mitral valve regurgitation. Severe aortic valve stenosis. Aortic valve area is 0.43 cm. Aortic valve mean gradient is 72 mmHg. Aortic valve Vmax 549 cm/s There is mild tricuspid valve regurgitation. The pulmonary valve is not well visualized. Lexiscan 05/30: CONCLUSION: 1. Partially reversible Stress-induced perfusion abnormality in the inferior wall and inferoapical region of the left ventricle. 2. Mild left ventricular chamber dilatation with hypokinetic inferior wall. 3. Decreased ejection fraction of 43%. Plan d/c today if ok with cardiology. cont current meds. f/u office and plan for TAVR (2) Aortic stenosis, severe ICD Codes: I35.0 - Nonrheumatic aortic (valve) stenosis Status: Acute (3) Elevated troponin ICD Codes: R74.8 - Abnormal levels of other serum enzymes Status: Acute Plan: above (4) CKD (chronic kidney disease) stage 3, GFR 30-59 ml/min ICD Codes: N18.3 - Chronic kidney disease, stage 3 (moderate) Status: Chronic (5) HTN (hypertension) ICD Codes: I10 - Essential (primary) hypertension Status: Chronic Problem Qualifiers (1) Cardiomyopathy: Qualified Codes: I25.5 - Ischemic cardiomyopathy Rene Aviles MD Jun 04, 2017 08:50
[2017-06-04] MEDS ORDERED: METO-309 PO (08:52)
[2017-06-04] MEDS ORDERED: ASPI81 PO (08:52)
[2017-06-04] MEDS ORDERED: ATOR40TA16 PO (08:52)
[2017-06-04] MEDS ORDERED: PLAV75TA29 PO (08:52)
--- NOTE | 2017-06-04 08:52 | HHI.DCPOC ---
Discharge Care Plan Diagnosis: (1) CAD (coronary artery disease) (2) Aortic stenosis, severe (3) Cardiomyopathy (4) CKD (chronic kidney disease) stage 3, GFR 30-59 ml/min (5) HTN (hypertension) (6) Thrombocytopenia Goals to Promote Your Health * To prevent worsening of your condition and complications * To maintain your health at the optimal level Directions to Meet Your Goals Take your medications as prescribed Follow your dietary instruction Follow activity as directed Keep your appointments as scheduled Take your immunizations and boosters as scheduled If your symptoms worsen call your PCP, if no PCP go to Urgent Care Center or Emergency Room Smoking is Dangerous to Your Health. Avoid second hand smoke Call the 24-hour hour crisis hotline for domestic abuse at Rene Aviles MD Jun 04, 2017 08:52
[2017-06-04] MEDS ORDERED: CLOPIDOGREL 75 MG TAB PO SCH (09:00)
[2017-06-04] MEDS: SODIUM CHLORIDE 0.9% FLUSH 10 ML FLUSH IV FLUSH SCH (09:00)
[2017-06-04] MEDS: ASPIRIN 81 MG CHEW TAB PO SCH (09:25)
[2017-06-04] MEDS: METOPROLOL TARTRATE 50 MG TAB PO SCH (09:26)
[2017-06-04] MEDS: ATORVASTATIN 40 MG TAB PO SCH (09:26)
[2017-06-04 10:34] LABS: PLATELET ESTIMATE SMEAR LOW (NORMAL); PLATELET MORPHOLOGY NORMAL (NORMAL); SCAN/DIFF AUTO DIFF CONFIRMED
--- NOTE | 2017-06-05 13:03 | HHI.DS ---
Discharge Summary Admission Date May 29, 2017 at 22:57 Discharge Date: Jun 04, 2017 Admitting Diagnosis abnormal troponin (1) Cardiomyopathy Diagnosis: Principal ICD Codes: I42.9 - Cardiomyopathy, unspecified Status: Acute (2) CAD (coronary artery disease) Diagnosis: Principal ICD Codes: I25.10 - Atherosclerotic heart disease of [place] coronary artery without angina pectoris (3) Aortic stenosis, severe Diagnosis: Principal ICD Codes: I35.0 - Nonrheumatic aortic (valve) stenosis Status: Acute (4) Elevated troponin Diagnosis: Principal ICD Codes: R74.8 - Abnormal levels of other serum enzymes Status: Acute (5) CKD (chronic kidney disease) stage 3, GFR 30-59 ml/min ICD Codes: N18.3 - Chronic kidney disease, stage 3 (moderate) Status: Chronic (6) HTN (hypertension) Diagnosis: Secondary ICD Codes: I10 - Essential (primary) hypertension Status: Chronic (7) Thrombocytopenia Diagnosis: Principal ICD Codes: D69.6 - Thrombocytopenia, unspecified Status: Chronic Brief History Pt is 82 yo with ckd 3 and htn who says he ran out of his metoprolol and then began feeling bad. says he was taking 1/2 the dose for 2 days then went without it for 2 more days. Was feeling dizzy for 2 days and noticed a higher bp into 140s. He came to ED and they noted an elevated troponin and sent him to [place]. He feels well today but troponin trended up slightly. no cp or sob. no diaphoresis. takes a baby asa at home. CBC/BMP: 06/04/17 0600 06/04/17 0600 Significant Findings Laboratory Tests Test 06/02/17 15:12 06/03/17 04:42 06/04/17 06:00 Direct Bilirubin 0.3 MG/DL (0.0-0.2) 0.3 MG/DL (0.0-0.2) Lactate Dehydrogenase 330 U/L (87-241) 363 U/L (87-241) Platelet Count 60 TH/MM3 (150-450) 95 TH/MM3 (150-450) Neutrophils (%) (Auto) 86.5 % (16.0-70.0) 71.2 % (16.0-70.0) Neutrophils % (Manual) 76 % (16-70) Band Neutrophils % 11 % (0-6) Platelet Estimate LOW (NORMAL) LOW (NORMAL) Platelet Morphology Comment ENLARGED (NORMAL) Ovalocytes 2+ (NORMAL) White Blood Count 12.3 TH/MM3 (4.0-11.0) Red Blood Count 4.44 MIL/MM3 (4.50-5.90) Hematocrit 38.7 % (39.0-51.0) Monocytes (%) (Auto) 9.0 % (0.0-8.0) Neutrophils # (Auto) 8.8 TH/MM3 (1.8-7.7) Monocytes # (Auto) 1.1 TH/MM3 (0-0.9) Blood Urea Nitrogen 45 MG/DL (7-18) Creatinine 1.72 MG/DL (0.60-1.30) Random Glucose 122 MG/DL (74-106) Albumin 3.2 GM/DL (3.4-5.0) Aspartate Amino Transf (AST/SGOT) 38 U/L (15-37) Chloride Level 108 MEQ/L (98-107) Estimat Glomerular Filtration Rate 38 ML/MIN (>89) Cholesterol Level 108 MG/DL (120-200) HDL Cholesterol 60.2 MG/DL (40.0-60.0) Hospital Course (1) Cardiomyopathy ICD Codes: I42.9 - Cardiomyopathy, unspecified Status: Acute Plan: pt with htn and ckd 3 ran out of his metoprolol developed dizziness elevated troponin. 1. elevated troponin. no cp. lexiscan positive for ischmia. lhc LM dz s/p bms left main 06/03 2. 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 severe AVS. valve area .43cm2 and mean gradient 72mmHg 4. ckd 3 5. htn 6. thrombocytopenia. 2 d echo 05/30: The left ventricular systolic function is qfnnhblq-rx-pflbedo reduced with an estimated ejection fraction in the range of 35-40%. Normal left ventricular size. Mild concentric left ventricular hypertrophy. Dwnzq-es-yhqw mitral valve regurgitation. Severe aortic valve stenosis. Aortic valve area is 0.43 cm. Aortic valve mean gradient is 72 mmHg. Aortic valve Vmax 549 cm/s There is mild tricuspid valve regurgitation. The pulmonary valve is not well visualized. Lexiscan 05/30: CONCLUSION: 1. Partially reversible Stress-induced perfusion abnormality in the inferior wall and inferoapical region of the left ventricle. 2. Mild left ventricular chamber dilatation with hypokinetic inferior wall. 3. Decreased ejection fraction of 43%. Plan d/c today if ok with cardiology. cont current meds. f/u office and plan for TAVR (2) Aortic stenosis, severe ICD Codes: I35.0 - Nonrheumatic aortic (valve) stenosis Status: Acute (3) Elevated troponin ICD Codes: R74.8 - Abnormal levels of other serum enzymes Status: Acute Plan: above (4) CKD (chronic kidney disease) stage 3, GFR 30-59 ml/min ICD Codes: N18.3 - Chronic kidney disease, stage 3 (moderate) Status: Chronic (5) HTN (hypertension) ICD Codes: I10 - Essential (primary) hypertension Status: Chronic Pt Condition on Discharge: Stable Discharge Disposition: Discharge Home Discharge Instructions DIET: Follow Instructions for: Heart Healthy Diet Activities you can perform: Regular-No Restrictions Follow up Referrals: Cardiology - 3-[address] Zendejas New Medications: Aspirin (Tgt Aspirin) 81 Mg Chw 81 MG PO DAILY for cad, #180 EA Atorvastatin (Atorvastatin) 40 Mg Tab 40 MG PO DAILY for cad, #30 TAB 3 Refills Clopidogrel (Plavix) 75 Mg Tab 75 MG PO DAILY for cad, #30 TAB 3 Refills Metoprolol Tartrate (Lopressor) 50 Mg Tab 50 MG PO Q12HR for cad, #60 TAB 3 Refills Discontinued Medications: Amlodipine (Norvasc) 10 Mg Tab 10 MG PO DAILY for Blood Pressure Management, TAB 0 Refills Lisinopril (Lisinopril) 20 Mg Tab 20 MG PO DAILY, TAB 0 Refills Metoprolol Tartrate (Metoprolol Tartrate) 100 Mg Tab 100 MG PO BID, TAB 0 Refills Rene Aviles MD Jun 05, 2017 13:02
--- NOTE | 2017-06-14 09:59 | RSPPFT ---
DATE OF PROCEDURE: 06/01/17 COMMENTS: Spirometry demonstrates an FEV1 of 1.1 at 54% of predicted, FVC of 1.9 at 69%, FEF 25-75 at 23%. Post-bronchodilator study was not conducted. Flow volume loops suggest an obstructive pattern. IMPRESSION: 1. Moderately severe obstructive airways disease.
== END 2017-06-04 14:19 | disposition home or self-care (01) | DRG 270 ==
LOC: NEDDLT 22:54 → N04A 22:57 → HCIS 05-31 12:03
PROVIDERS: ADMIT Hospitalist; ATTEND Hospitalist
PROC: 4A023N7 Measurement of Cardiac Sampling and Pressure, Left Heart, Percutaneous Approach (ICD-10-PCS; 2017-05-31)
PROC: B2111ZZ Fluoroscopy of Multiple Coronary Arteries using Low Osmolar Contrast (ICD-10-PCS; 2017-05-31)
PROC: 4A023N7 Measurement of Cardiac Sampling and Pressure, Left Heart, Percutaneous Approach (ICD-10-PCS; principal; 2017-06-03)
PROC: 5A02210 Assistance with Cardiac Output using Balloon Pump, Continuous (ICD-10-PCS; 2017-06-03)
PROC: 02703DZ Dilation of Coronary Artery, One Artery with Intraluminal Device, Percutaneous Approach (ICD-10-PCS; 2017-06-03)
PROC: B2111ZZ Fluoroscopy of Multiple Coronary Arteries using Low Osmolar Contrast (ICD-10-PCS; 2017-06-03)
PROC: 6A550Z2 Pheresis of Platelets, Single (ICD-10-PCS; 2017-06-03)
PROC: 5A1223Z Performance of Cardiac Pacing, Continuous (ICD-10-PCS; 2017-06-03)
DX: I25.119 Atherosclerotic heart disease of native coronary artery with unspecified angina pectoris (principal); I50.43 Acute on chronic combined systolic (congestive) and diastolic (congestive) heart failure; I13.0 Hypertensive heart and chronic kidney disease with heart failure and stage 1 through stage 4 chronic kidney disease, or unspecified chronic kidney disease; D69.6 Thrombocytopenia, unspecified; I08.3 Combined rheumatic disorders of mitral, aortic and tricuspid valves; R74.8 Abnormal levels of other serum enzymes; N18.3 Chronic kidney disease, stage 3 (moderate); I45.10 Unspecified right bundle-branch block; M06.9 Rheumatoid arthritis, unspecified; E78.5 Hyperlipidemia, unspecified; M10.9 Gout, unspecified; I25.5 Ischemic cardiomyopathy; Z87.891 Personal history of nicotine dependence; Z86.73 Personal history of transient ischemic attack (TIA), and cerebral infarction without residual deficits; Z82.3 Family history of stroke; Z83.3 Family history of diabetes mellitus
CPT/HCPCS: 33967; 36430; 70450; 71010; 71250; 76700; 78452; 80048; 80053; 80061; 80076; 81001; 82550; 83010; 83036; 83615; 84484; 85002; 85007; 85025; 85027; 85049; 85060; 85384; 85610; 85730; 86705; 86803; 86850; 86900; 86901; 87340; 87641; 92928; 93005; 93017; 93225; 93226; 93306; 93454; 93458; 93880; 93970; 93998; 94010; 99152; 99153; A9502; C1725; C1769; C1876; C1887; C1893; J0171; J0461; J1200; J1644; J2250; J2785; J2930; J3010; P9035; Q9967

== ENCOUNTER → 2017-06-28 | Outpatient (CLI) | payer MEDICARE ==
[~2017-06-28] MED LIST changes: -ACETAMINOPHEN 325 MG TAB PO PRN; -AMLO10; -AMLO10 PO; +ASPI81 PO; +ATOR40TA16 PO; -CLOP75; -ENAL20TA81; +IOHEXOL 350 MG/ML 10 ML VIAL (for RAD DIAG) IVCONTRAST ONE; -LISI-515 PO; -LOVA10TA; -MAGNESIUM HYDROXIDE SUSP 30 ML CUP PO PRN; +METO-309 PO; -METO100T; -METO100T PO; -METOPROLOL TARTRATE 100 MG TAB PO SCH; -NALOXONE HCL 0.4 MG/ML AMP IV PUSH PRN; -NITROGLYCERIN 0.4 MG SL 25 TABS/BTL SL PRN; -ONDANSETRON HCL 4 MG/2 ML VIAL IVP PRN; +PLAV75TA29 PO; -SODIUM CHLORIDE 0.9% FLUSH 10 ML FLUSH IV FLUSH PRN; -TAMS0.4C67
[2017-06-28 07:21] VITALS: BP 143/84; PULSE 84; RESP 18; TEMP 98; O2SAT 96
[2017-06-28 08:43] LABS: BICARBONATE 26.9 MEQ/L (21.0-32.0); CALCIUM 8.4 MG/DL (8.5-10.1); CREATININE 1.61 MG/DL (0.60-1.30)
--- NOTE | 2017-06-28 14:11 | RADRPT ---
EXAM DATE/TIME: 06/28/2017 10:05 [facility] COMPARISON: CHEST SINGLE AP, May 30, 2017, 4:30. INDICATIONS : Pre op trans aortic valve replacement IV CONTRAST: 100 cc Omnipaque 350 (iohexol) IV RADIATION DOSE: 11.02 CTDIvol (mGy) MEDICAL HISTORY : Cerebrovascular disease. Cardiovascular disease Hypertension. SURGICAL HISTORY : Right shoulder surgery ENCOUNTER: Initial ACUITY: 1 day PAIN SCALE: 0/10 LOCATION: chest TECHNIQUE: Volumetric scanning was performed using a multi-row detector CT scanner. The data was post processed with a variety of visualization algorithms including full volume maximum intensity projection, multi -planar sliding thin slab reformation, curved planar reformation, and surface rendering techniques. Using automated exposure control and adjustment of the mA and/or kV according to patient size, radiat ion dose was kept as low as reasonably achievable to obtain optimal diagnostic quality images. DIC OM format image data is available electronically for review and comparison. FINDINGS: CARDIAC: The coronary system is right dominant. Coronaries show dense calcification and I believe there is a s tent in the left main vessel. There is no pericardial effusion AORTIC ROOT/VALVE: 3 cusps are evident with extensive nodular calcification. The aortic root measures 4 cm. Mid thoracic aorta measures 3.2 with no calcifications. THORACIC AORTA: Anatomic variant of the aortic arch with the left vertebral emanating near the origin of the left sub clavian. Arch vessels are all patent. No evidence of aneurysm, mural thrombus, dissection, mural nisha cification, or stenosis. ABDOMINAL AORTA: Dense calcification of the abdominal aorta but the vessel is normal in caliber throughout its length without aneurysmal disease.. CELIAC ARTERY: Celiac artery is widely patent. SMA: Superior mesenteric artery is widely patent. RIGHT RENAL ARTERY: Right renal artery is widely patent. LEFT RENAL ARTERY: Left renal artery is widely patent. RIGHT COMMON ILIAC: No evidence of aneurysm, mural thrombus, dissection, mural calcification, or stenosis. The common fe moral measures 8 mm. LEFT COMMON ILIAC: No evidence of aneurysm, mural thrombus, dissection, mural calcification, or stenosis. The common fe moral measures 8 mm. THORAX: Emphysematous changes predominantly in the apices. There is some nonspecific pleural thickening which are laterally in the right base with some regional atelectasis/scarring. Minimal atelectatic changes in the left base with a small, likely postinflammatory pleural based nodule also on the left. Multip le low density nodules in the left lobe of the thyroid are nonspecific but overtly benign. ABDOMEN: Severe diverticular disease of the sigmoid without diverticulitis. Abdominal and pelvic viscera are o therwise intact. Focal area of enhancement in the quadrate lobe of the liver is nonspecific an overtl y benign possibly representing a small hemangioma. PELVIS: As mentioned above, diverticular disease of the sigmoid. CONCLUSION: 1. Densely calcified aortic valve with measurements as above. 2. Access appears to be widely patent throughout with no significant stenosis from either common femo ral to the ascending thoracic aorta. 3. Patient is right coronary dominance. Dense calcification of the coronary arteries and I do believe that there is a left main stent. 4. Emphysematous changes predominantly in the lung apices with probable fibrotic changes in the bases . Pleural based nodule posteriorly on the left is probably postinflammatory. 5. Marked diverticular disease of the sigmoid without diverticulitis. Fco Beverly MD on June 28, 2017 at 13:27 Board Certified Radiologist. This report was verified electronically.
== END ==
LOC: HRAD 06:06
PROVIDERS: ATTEND Internal Medicine
DX: I35.0 Nonrheumatic aortic (valve) stenosis (principal)
CPT/HCPCS: 74174; 80048; Q9967

== ENCOUNTER 2017-08-10 05:21 | Inpatient (IN) | payer MEDICARE ==
[2017-08-10] VITALS (8 sets, daily range): BP systolic 112–155; BP diastolic 36–78; PULSE 64–91; RESP 14–18; TEMP 97.7–98.3; O2SAT 95–99
[~2017-08-10] VITALS: Ht 165.1 cm; Wt 78.5 kg
[~2017-08-10 05:21] MED LIST changes: -IOHEXOL 350 MG/ML 10 ML VIAL (for RAD DIAG) IVCONTRAST ONE
[2017-08-10] MEDS ORDERED: SODIUM CHLOR 0.9% 1000 ML 1,000 ML IV SCH (05:45)
[2017-08-10] MEDS ORDERED: ceFAZolin 2 GM PREMIX 50 ML IV PRN (05:45)
[2017-08-10] MEDS ORDERED: POVIDONE IODINE 5% (ANTISEPSIS KIT) EACH NARE PRN (05:45)
[2017-08-10] MEDS ORDERED: CHLORHEXIDINE GLUCONATE 2 % 1 PACK (2 CLOTHS) TOPICAL PRN ×2 (05:45→06:30)
[2017-08-10] MEDS ORDERED: MUPIROCIN 2% OINT 1 APPLIC/GM SYRINGE EACH NARE PRN (05:45)
[2017-08-10] MEDS ORDERED: SODIUM CHLORID 0.9% 500 ML IV PRN (06:30)
[2017-08-10] MEDS ORDERED: LACTATED RINGER'S 1000 ML IV PRN (06:30)
[2017-08-10] MEDS ORDERED: POVIDONE IODINE 5% (ANTISEPSIS KIT) 4 APPLICATIONS EACH NARE PRN (06:30)
[2017-08-10] MEDS ORDERED: METOPROLOL TARTRATE 25 MG TAB PO PRN (06:30)
[2017-08-10 06:39] LABS: AUTOMATED NEUTROPHIL # 3.9 TH/MM3 (1.8-7.7); BASOPHIL % 0.5 % (0.0-2.0); EOSINOPHIL # 0.4 TH/MM3 (0-0.4); EOSINOPHIL % 6.3 % (0.0-4.0); HEMATOCRIT 39.5 % (39.0-51.0); HEMOGLOBIN 13.4 GM/DL (13.0-17.0); LYMPH % 27.1 % (9.0-44.0); LYMPHOCYTE # 1.9 TH/MM3 (1.0-4.8); MEAN CELL VOLUME 86.4 FL (80.0-100.0); MEAN CORPUSCULAR HEMOGLOBIN 29.4 PG (27.0-34.0); MEAN CORPUSCULAR HGB CONC 34.1 % (32.0-36.0); MEAN PLATELET VOLUME 9.4 FL (7.0-11.0); MONO % 9.8 % (0.0-8.0); MONOCYTE # 0.7 TH/MM3 (0-0.9); NEUT % 56.3 % (16.0-70.0); PLATELET COUNT 101 TH/MM3 (150-450); RED BLOOD COUNT 4.57 MIL/MM3 (4.50-5.90); RED CELL DISTRIBUTION WIDTH 15.7 % (11.6-17.2); WHITE BLOOD COUNT 6.8 TH/MM3 (4.0-11.0)
[2017-08-10 06:47] LABS: INTERNATIONAL NORMALIZED RATIO 1.1 RATIO; PROTHROMBIN TIME - PATIENT 11.4 SEC (9.8-11.6)
[2017-08-10 06:50] LABS: BICARBONATE 29.6 MEQ/L (21.0-32.0); CALCIUM 9.1 MG/DL (8.5-10.1); CREATININE 1.36 MG/DL (0.60-1.30)
[2017-08-10] MEDS ORDERED: ASPIRIN 325 MG TAB ONE (06:53)
[2017-08-10] MEDS ORDERED: PROTAMINE SULFATE 50 MG/5 ML VIAL ONE ×2 (07:02→09:15)
[2017-08-10] MEDS ORDERED: HEPARIN SODIUM - SQ 10,000 UNITS/ML VIAL ONE (07:02)
[2017-08-10] MEDS ORDERED: HEPARIN-NS/PF FLUSH BAG 1,000 ML IV FLUSH ONE (07:06)
[2017-08-10] MEDS ORDERED: ASPIRIN 325 MG TAB PO ONE (07:30)
[2017-08-10] MEDS ORDERED: IOHEXOL 350 MG/ML 100 ML BTL (for RAD DIAG) OTHER ONE (09:01)
[2017-08-10] MEDS ORDERED: NOREPINEPHRINE 4 MG/4 ML AMP ONE (09:16)
[2017-08-10] MEDS ORDERED: HEPARIN SODIUM - IV 10,000 UNITS/10 ML VIAL ONE (09:49)
--- NOTE | 2017-08-10 10:44 | PD.OP ---
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 Benites Surgeon: Meryl Arboleda Co-surgeon - Dr. Zendejas Cns(s): Dr. Mir Operation and Findings: The risks, benefits, complications, treatment options, and expected outcomes were discussed with the patient. The possibilities of reaction to medication, pulmonary aspiration, perforation of viscus, bleeding, recurrent infection, the need for additional procedures, failure to diagnose a condition, and creating a complication requiring transfusion or operation were discussed with the patient. The patient concurred with the proposed plan, giving informed consent. The site of surgery properly noted/marked. The patient was taken to hybrid operating room, identified as Colin Arellano and the procedure verified as Transcatheter Aortic Valve Replacement. A Time Out was held and the above information confirmed. Standard monitoring lines and Panda catheter were placed. General anesthesia was induced. The patient was prepped and draped in a sterile fashion. Initially, left femoral arterial and venous access was acquired using a Seldinger percutaneous technique. The details of this procedure were dictated under separate note by cardiology. Once a pigtail was positioned in the aortic annulus and a temporary transvenous pacemaker wire was placed in the right ventricular apex and tested, the right femoral artery was accessed using a needle followed by a guidewire under fluoroscopic guidance. The patient was heparinized and 2 Perclose devices placed for later closure. Serial dilators were used to dilate the right femoral artery to 16 [place] caliber. The Cook sheath was then inserted up to the distal abdominal aorta. Arch aortography was performed to define the implant view. A balloon aortic valvuloplasty was then performed using a 24 x 6 True balloon with the patient being paced at 180 beats per minute. A 34 Evolut R transcatheter aortic valve was then positioned in the annulus and deployed with the patient being paced at 120 beats per minute. Following deployment, the valve apparatus was withdrawn and arch aortography and PIA were performed to assess the valve. The valve was constrained by calcification with significant PVL. Therefore, the valve was postdilated with a 28 x 6 True balloon after exchanging the valve delivery system with the 16 F Cook sheath. PIA showed no PVL and full stent expansion. Gradients were then measured and the sheath was removed. Protamine was administered and the Perclose sutures secured. Sterile dressings were placed. At the end of the operation, all sponge, instruments, and needle counts were correct. The patient was transferred to the CVICU in stable condition. Findings: Heavily calcified functionally bicuspid valve Implants: 34 Evolut R Complications: none Disposition: to CVICU in stable condition Meryl Arboleda MD Aug 10, 2017 10:44
[2017-08-10] MEDS ORDERED: SODIUM CHLOR 0.9% 1000 ML INJ 1,000 ML IV SCH (11:10)
[2017-08-10] MEDS ORDERED: DEXTROSE 50% IN WATER 50 ML VIAL(D50) IV PUSH PRN (11:15)
[2017-08-10] MEDS ORDERED: ATROPINE SULFATE 1 MG/ML VIAL IV PUSH PRN (11:15)
[2017-08-10] MEDS ORDERED: CLOPIDOGREL 300 MG TAB PO ONE (11:15)
[2017-08-10] MEDS ORDERED: BENZOCAINE-MENTHOL (SUGAR FREE) 15 MG-3.6 MG LOZENGE BUCCAL PRN (11:15)
[2017-08-10] MEDS ORDERED: GLUCAGON 1 MG/ML VIAL OTHER PRN (11:15)
[2017-08-10] MEDS ORDERED: MISC INFORMATION OTHER ONE (11:15)
[2017-08-10] MEDS ORDERED: MIDAZOLAM HCL 2 MG/2 ML VIAL ONE (11:28)
--- NOTE | 2017-08-10 11:47 | PD.PROCEDR ---
Procedure Note Procedure Procedure: Transesophageal Echocardiography Diagnosis: Severe aortic stenosis Indications: Need for perioperative planning for transcatheter aortic valve replacement Consent: Obtained Anesthesia: General endotracheal anesthesia Description of the Procedure: The patient was sedated and mechanically ventilated. The echo probe was inserted easily and without resistance. At the conclusion of the procedure, the echo probe was removed. Please see detailed echocardiogram report for formal findings. Preliminary Findings (not confirmed): Pre-procedure: 1) Mildly depressed LV function 2) Normal right ventricular function 3) Severe aortic stenosis 4) trace mitral regurgitation 5) no pericardial effusion 6) no evidence of intra-atrial shunting by color flow Doppler Post-procedure: 1) s/p successful transcatheter bioprosthetic aortic valve 2) no evidence of bioprosthetic valve stenosis 3) trace perivalvular leak 4) no change in ventricular function 5) no pericardial effusion The patient tolerated the procedure well with no hemodynamic instability. There were no immediate complications noted. There was minimal EBL. I personally performed the procedure. Gayr Tsai MD Aug 10, 2017 11:47
[2017-08-10] MEDS ORDERED: hydrALAZINE HCL 20 MG/ML VIAL IV PUSH PRN (12:00)
[2017-08-10] MEDS ORDERED: RESP: ALBUTEROL 2.5 MG/IPRATROPIUM 0.5 MG NEB (PRN) INH (12:00)
[2017-08-10] MEDS ORDERED: NORMOSOL R INJ 1,000 ML IV ONE (12:00)
[2017-08-10] MEDS ORDERED: LIDOCAINE HCL 1% PF 5 ML SYRINGE OTHER ONE (12:00)
[2017-08-10] MEDS ORDERED: GLYCOPYRROLATE 1 MG/5 ML SYRINGE IV PUSH ONE (12:00)
[2017-08-10] MEDS ORDERED: PHENYLEPH/NS 1000 MCG/10 ML SYR IV ONE (12:00)
[2017-08-10] MEDS ORDERED: SODIUM CHLORID 0.9% 500 ML INJ 1,000 ML IV ONE (12:00)
[2017-08-10] MEDS ORDERED: ROCURONIUM INJ 50 MG/5 ML SYRINGE IV PUSH ONE (12:00)
[2017-08-10] MEDS ORDERED: SODIUM CHLOR 0.9% 1000 ML INJ 1,000 ML IV ONE (12:00)
[2017-08-10] MEDS ORDERED: ePHEDrine/NS 25 MG/5 ML SYRINGE IV ONE (12:00)
[2017-08-10] MEDS ORDERED: PROPOFOL 200 MG/20 ML AMP IV ONE (12:00)
[2017-08-10] MEDS ORDERED: SODIUM CHLOR 0.9% 250 ML INJ 250 ML IV ONE (12:00)
[2017-08-10] MEDS ORDERED: NEOSTIGMINE 5 MG/5 ML SYRINGE IV PUSH ONE (12:00)
--- NOTE | 2017-08-10 12:00 | PD.CONS ---
[facility] Service Critical Care Medicine Consult Requested By Dr. Zendejas Reason for Consult perioperative management of medical comorbidities Primary Care Physician No Primary Care Physician History of Present Illness This is an 82-year-old man with a history of severe symptomatically aortic stenosis, CKD stage III, hypertension, rheumatoid arthritis, and prior stroke in 2004 who resents for elective transcatheter aortic valve replacement. He underwent uncomplicated procedure via iliac access. He arrives to the CVICU extubated in stable condition. He is emerging from anesthesia when I evaluated him in the CVICU. Due to his sedation, a full review of systems and history is unobtainable and obtained from the medical record. Review of Systems ROS Limitations: Clinical Condition, Altered Mental Status ROS Arousing from anesthesia Past Family Social History Allergies: Coded Allergies: ciprofloxacin (Verified Allergy, Mild, RASH, 08/10/17) Past Medical History Chronic kidney disease stage III, followed by shell grader in [place] Hypertension Rheumatoid arthritis Restrictive lung disease with an FEV1 of approximately 50% predicted, CVA in 2004, no residual deficits. Severe aortic stenosis Chronic thrombocytopenia Past Surgical History Right shoulder surgery Hemorrhoidectomy Recent PCI to the ostium of the LAD with bare-metal stent Reported Medications Tgt Aspirin (Aspirin) 81 Mg Chw 81 Mg PO DAILY Lopressor (Metoprolol Tartrate) 50 Mg Tab 50 Mg PO Q12HR Atorvastatin (Atorvastatin Calcium) 40 Mg Tab 40 Mg PO DAILY Plavix (Clopidogrel Bisulfate) 75 Mg Tab 75 Mg PO DAILY Active Ordered Medications See MAR Family History Father from complications of diabetes Mother had CVA Social History Former smoker 40 years, quit 20 years ago. Denies EtOH. Physical Exam Vital Signs Vital Signs Date Time Temp Pulse Resp B/P (MAP) Pulse Ox O2 Delivery O2 Flow Rate FiO2 08/10/17 11:23 97 Nasal Cannula 3.00 08/10/17 05:30 97.9 68 16 155/78 (103) 99 Physical Exam GENERAL: Elderly male, lying in bed, arousing from anesthesia HEENT: Normocephalic. Atraumatic. Pupils equal, round, reactive, conjugate. Mucous membranes are moist NECK: Trachea is midline. There is no JVD. Right IJ introducer sheath with transvenous pacer in place, site clean dry and intact CHEST: Equal chest rise. Unlabored. Nasal cannula oxygen. CARDIOVASCULAR: Normal rate, regular rhythm. Sinus by telemetry. Transvenous pacer is set VVI at a backup rate of 50, not currently paced ABDOMEN: Soft, nontender, nondistended. No guarding. MUSCULOSKELETAL: Pulses 2+. No peripheral edema. Bilateral groin sites with dressings which are clean dry and intact. No evidence of groin hematoma. Lower extremity distal pulses are dopplerable. NEUROLOGICAL: Rest -2. Arousing from anesthesia. Moves all extremities. No focal deficits. Laboratory Laboratory Tests Test 08/10/17 06:00 White Blood Count 6.8 Red Blood Count 4.57 Hemoglobin 13.4 Hematocrit 39.5 Mean Corpuscular Volume 86.4 Mean Corpuscular Hemoglobin 29.4 Mean Corpuscular Hemoglobin Concent 34.1 Red Cell Distribution Width 15.7 Platelet Count 101 Mean Platelet Volume 9.4 Neutrophils (%) (Auto) 56.3 Lymphocytes (%) (Auto) 27.1 Monocytes (%) (Auto) 9.8 Eosinophils (%) (Auto) 6.3 Basophils (%) (Auto) 0.5 Neutrophils # (Auto) 3.9 Lymphocytes # (Auto) 1.9 Monocytes # (Auto) 0.7 Eosinophils # (Auto) 0.4 Basophils # (Auto) 0.0 CBC Comment DIFF FINAL Differential Comment Prothrombin Time 11.4 Prothromb Time International Ratio 1.1 Activated Partial Thromboplast Time 25.2 Blood Urea Nitrogen 21 Creatinine 1.36 Random Glucose 116 Calcium Level 9.1 Sodium Level 142 Potassium Level 4.0 Chloride Level 106 Carbon Dioxide Level 29.6 Anion Gap 6 Estimat Glomerular Filtration Rate 50 Result Diagram: 08/10/17 0600 08/10/17 0600 Assessment and Plan Assessment and Plan Assessment: 82-year-old male postop day 0 status post transcatheter aortic valve replacement. We will keep in ICU. Close monitoring of urine output. Close monitoring of neurovascular exam. s/p TAVR 08/10 with iliac access - mivf - close uop monitoring - frequent neurovascular checks HTN - goal sbp < 180 - restart home anti-hypertensives as needed Chronic Kidney Disease stage III - mivf - close monitoring of uop - adequate hydration to ensure euvolemia given contrast load today. hyperlipidemia - restart home statin restrictive lung disease probable COPD Former smoker - aggressive pulmonary toilet - wean o2 for goal spo2 > 90% - once flat time is up, OOB and mobilize - nebs prn Dispo: admit to ICU for close monitoring. CCM will continue to follow along with you while patient remains in the CVICU. Gary Tsai MD Aug 10, 2017 12:00
--- NOTE | 2017-08-10 15:26 | EKG ---
Date Performed: 08/10/2017 Time Performed: 06:32:46 PTAGE: 82 years EKG: Sinus rhythm with PVC(s). Anterolateral ST-T changes may be due to myocardial ischemia Abnormal ECG PREVIOUS TRACING : 05/30/2017 05.56 DOCTOR: Kadeem Zendejas Interpretating Date/Time 08/10/2017 15:25:02
[2017-08-10] MEDS: ACETAMINOPHEN 325 MG TAB PO PRN ×2 (18:36→23:47)
[2017-08-11] VITALS (10 sets, daily range): BP systolic 126–157; BP diastolic 59–77; PULSE 74–103; RESP 14–20; TEMP 98–98.2; O2SAT 93–98
[2017-08-11 05:26] LABS: HEMOGLOBIN 10.6 GM/DL (13.0-17.0); MEAN CORPUSCULAR HEMOGLOBIN 29.1 PG (27.0-34.0); MEAN CORPUSCULAR HGB CONC 34.2 % (32.0-36.0); MEAN PLATELET VOLUME 9.4 FL (7.0-11.0); PLATELET COUNT 65 TH/MM3 (150-450); RED BLOOD COUNT 3.65 MIL/MM3 (4.50-5.90); RED CELL DISTRIBUTION WIDTH 15.4 % (11.6-17.2); WHITE BLOOD COUNT 6.2 TH/MM3 (4.0-11.0)
[2017-08-11 05:44] LABS: ALBUMIN 2.8 GM/DL (3.4-5.0); ALKALINE PHOSPHATASE 45 U/L (45-117); ALT (GPT) 13 U/L (12-78); AST (GOT) 47 U/L (15-37); BICARBONATE 25.7 MEQ/L (21.0-32.0); BLOOD UREA NITROGEN 19 MG/DL (7-18); CALCIUM 7.9 MG/DL (8.5-10.1); CHLORIDE 107 MEQ/L (98-107); GLOMERULAR FILTRATION RATE 58 ML/MIN (>89); GLUCOSE,RANDOM 110 MG/DL (74-106); SODIUM (NA) 141 MEQ/L (136-145); TOTAL BILIRUBIN ADULT 0.7 MG/DL (0.2-1.0); TOTAL PROTEIN 5.4 GM/DL (6.4-8.2)
[2017-08-11] MEDS: METOPROLOL TARTRATE 50 MG TAB PO SCH ×2 (08:15→20:40)
[2017-08-11] MEDS: CLOPIDOGREL 75 MG TAB PO SCH ×2 (08:16→11:00)
[2017-08-11] MEDS: ATORVASTATIN 40 MG TAB PO SCH (08:16)
[2017-08-11] MEDS: ASPIRIN 81 MG CHEW TAB PO SCH ×2 (08:16→10:59)
[2017-08-11] MEDS ORDERED: ASPIRIN 81 MG CHEW TAB PO SCH (09:00)
--- NOTE | 2017-08-11 09:13 | MB ---
cc: JACQUELINE JUAREZ M.D. DATE OF CONSULTATION: 08/11/2017 REASON FOR CONSULTATION Status post TAVR for conduction disease evaluation. HISTORY OF PRESENT ILLNESS Mr. Arellano is a 82-year-old gentleman with history of severe aortic stenosis, high blood pressure, rheumatoid arthritis. He has a previous CVA and was admitted for transcatheter aortic valve replacement. The procedure was successful. I was consulted for evaluation and management. The chart was reviewed. The patient was evaluated. ALLERGIES CIPROFLOXACIN. SOCIAL HISTORY Negative for smoking and drinking. FAMILY HISTORY Noncontributory to his current medical condition. MEDICATIONS He is on: 1. Lopressor. 2. Atorvastatin. 3. Plavix. REVIEW OF SYSTEMS Currently he refers feeling better. No chest pain or chest discomfort. No fever. PHYSICAL EXAMINATION GENERAL: Alert, fully oriented. VITAL SIGNS: Blood pressure 153/59, pulse around 80, respiratory rate 18. LUNGS: Ventilated. CARDIOVASCULAR: S1-S2 regular. No gallop. ABDOMEN: Soft. No mass. No bruit. EXTREMITIES: No edema. Right jugular area with a central line. EKG Electrocardiogram shows sinus rhythm. No diffuse ST changes. LABORATORY DATA Hemoglobin is 10.6, white blood cell 6.2, INR 1.1, potassium 3.8, creatinine 1.2. ASSESSMENT AND RECOMMENDATIONS Mr. Arellano is stable. There is no significant pause during the night. There is no change in EKG prior and after TAVR. My recommendation is to continue with current management. No sign of conduction disease at this point. The patient can be discharged home. If necessary I will see the patient. Jacqueline Juarez MD HS/TLL /8:19 AM /8:46 AM
--- NOTE | 2017-08-11 10:21 | PD.CAR.PN ---
CVT Progress Note Subjective/Hospital Course: An 82-year-old male/ seen 05/31/17 who presented to [facility] complaining of dizziness and some headaches. He had run out of his medication of metoprolol for a couple of days. They did a head CT scan which showed and old lacunar infarct basal ganglia, old infarct in the left frontal lobe, diffuse cortical atrophy, no focal or acute intracranial hemorrhage. His EKG showed some indeterminate axis, right bundle-branch block. He was then transferred to [facility] after his troponins were elevated. He underwent a nuclear stress test which showed partially reversible stress induced perfusion abnormality inferior wall, inferior apical region of the left ventricle, some mild left ventricular dilation with hypokinetic inferior wall, EF of 43%. He underwent cardiac cath today by Dr. Zendejas with an EF showing 30%, left main 90%, RCA 80%. He also underwent echocardiogram which showed severe aortic stenosis with a valve area 0.43, mean gradient of 72, mild tricuspid regurgitation, mild mitral regurgitation, EF of 35-40%. We were consulted in regards to coronary artery bypass grafting x2 and aortic valve replacement versus high-risk PCI and transcatheter aortic valve replacement. Pt then underwent Successful percutaneous intervention with a bare metal stent to the ostial left main coronary artery 06/[address] Zendejas , then later discharged home . He was electively admitted 08/10/17 for TAVR PAST MEDICAL HISTORY: Chronic kidney disease stage III. He follows with a powder mixer in [place], Hypertension, Rheumatoid arthritis, CVA in 2004 where he had some speech, some receptive expressive dysphasia, underwent rehab with no mobility deficit, Combined systolic and diastolic congestive heart failure, Aortic stenosis, severe, restrictive lung disease , chronic thrombocytopenia surgery: 08/10 Transcatheter aortic valve replacement with a 34 Evolut R tissue valve Balloon aortic valvuloplasty with a 24 True balloon pre and 28 True balloon for postdilation Right and left femoral artery access with Perclose closure on right Left femoral venous access 08/11 pt has done well over night , has been seen and eval by Dr Juarez, no evidence of conduction defect , has not required back up pacing through the night pt still has temporary pacer right IJ both groin sites with dry dressing in place , mild ecchymosis right groin site on room air stable from CVS standpoint Objective: GENERAL: A&O x 3 SKIN: Warm and dry. right IJ temporary pacer / with cordis HEAD: Normocephalic. EYES: No scleral icterus. No injection or drainage. NECK: Supple, trachea midline. No JVD or lymphadenopathy. CARDIOVASCULAR: Regular rate and rhythm without murmurs, gallops, or rubs. back up pacer set at 50 RESPIRATORY: Breath sounds equal bilaterally. No accessory muscle use. GASTROINTESTINAL: Abdomen soft, non-tender, nondistended. MUSCULOSKELETAL: No cyanosis, or edema. BACK: Nontender without obvious deformity. No CVA tenderness. Vital Signs Date Time Temp Pulse Resp B/P (MAP) Pulse Ox O2 Delivery O2 Flow Rate FiO2 08/11/17 07:57 95 21 08/11/17 07:50 89 08/11/17 07:50 92 Room Air 08/11/17 07:46 98.0 86 16 141/77 (98) 97 153/59 (90) 08/11/17 07:00 96 08/11/17 03:00 84 08/11/17 03:00 98.2 84 14 141/60 (87) 97 157/59 (91) 08/11/17 03:00 83 08/11/17 03:00 97 Nasal Cannula 2.00 08/11/17 00:47 14 08/10/17 23:00 89 08/10/17 23:00 89 08/10/17 23:00 97 Nasal Cannula 2.00 08/10/17 23:00 98.3 89 14 131/69 (89) 97 144/56 (85) 08/10/17 19:32 95 Nasal Cannula 2.00 08/10/17 19:00 98.1 91 14 128/68 (88) 97 143/57 (85) 08/10/17 19:00 91 08/10/17 19:00 97 Nasal Cannula 2.00 08/10/17 19:00 91 08/10/17 15:00 97.7 69 16 133/62 (85) 97 147/55 (85) 08/10/17 15:00 97 Nasal Cannula 2.00 08/10/17 15:00 66 08/10/17 15:00 66 08/10/17 14:00 67 08/10/17 14:00 98 Nasal Cannula 2.00 08/10/17 11:23 97 Nasal Cannula 3.00 08/10/17 11:00 97.7 86 18 115/63 (80) 96 134/56 (82) 08/10/17 10:55 97.7 64 18 112/60 (77) 96 135/36 (69) Labs: Laboratory Tests Test 08/11/17 04:45 White Blood Count 6.2 TH/MM3 (4.0-11.0) Red Blood Count 3.65 MIL/MM3 (4.50-5.90) Hemoglobin 10.6 GM/DL (13.0-17.0) Hematocrit 31.0 % (39.0-51.0) Mean Corpuscular Volume 85.0 FL (80.0-100.0) Mean Corpuscular Hemoglobin 29.1 PG (27.0-34.0) Mean Corpuscular Hemoglobin Concent 34.2 % (32.0-36.0) Red Cell Distribution Width 15.4 % (11.6-17.2) Platelet Count 65 TH/MM3 (150-450) Mean Platelet Volume 9.4 FL (7.0-11.0) Blood Urea Nitrogen 19 MG/DL (7-18) Creatinine 1.20 MG/DL (0.60-1.30) Random Glucose 110 MG/DL (74-106) Total Protein 5.4 GM/DL (6.4-8.2) Albumin 2.8 GM/DL (3.4-5.0) Calcium Level 7.9 MG/DL (8.5-10.1) Alkaline Phosphatase 45 U/L (45-117) Aspartate Amino Transf (AST/SGOT) 47 U/L (15-37) Alanine Aminotransferase (ALT/SGPT) 13 U/L (12-78) Total Bilirubin 0.7 MG/DL (0.2-1.0) Sodium Level 141 MEQ/L (136-145) Potassium Level 3.8 MEQ/L (3.5-5.1) Chloride Level 107 MEQ/L (98-107) Carbon Dioxide Level 25.7 MEQ/L (21.0-32.0) Anion Gap 8 MEQ/L (5-15) Estimat Glomerular Filtration Rate 58 ML/MIN (>89) Result Diagram: 08/11/1744408/11/17444 Telemetry: NSR (1) S/P TAVR (transcatheter aortic valve replacement) Plan: on ASA, plavix BB cleared by digital imaging specialist eval for PT/ OOB ambulate will leave any further orders and discharge planning to Dr Zendejas (2) Combined systolic and diastolic congestive heart failure (3) Aortic stenosis, severe Abby Canseco Aug 11, 2017 10:21
--- NOTE | 2017-08-11 11:30 | PD.CARD.PN ---
Subjective Subjective Remarks No complaints. Sitting up in a chair. No arrhythmias overnight. Objective Medications Current Medications Medications (Trade) Dose Ordered Sig/Abelino Route Start Time Stop Time Status Last Admin Cefazolin Sodium/ Dextrose 50 ml @ 100 mls/hr TRANSFER AND LINE [employer] WORKER PRN IV 08/10/17 05:45 08/13/17 05:44 08/10/17 08:45 (Betadine 5% Antisepsis Kit) 1 applic TRANSFER AND LINE [employer] WORKER PRN EACH NARE 08/10/17 05:45 08/13/17 05:44 (Bactroban Nasal 2% Oint) 1 applic TRANSFER AND LINE UP WORKER PRN EACH NARE 08/10/17 05:45 08/13/17 05:44 (Chlorhexidine 2% Cloth) 3 pack TRANSFER AND LINE UP WORKER PRN TOPICAL 08/10/17 05:45 08/13/17 05:44 08/10/17 06:57 (Lopressor) 25 mg TRANSFER AND [employer] WORKER PRN PO 08/10/17 06:30 08/13/17 06:29 (Betadine 5% Antisepsis Kit) 1 applic TRANSFER AND LINE UP WORKER PRN EACH NARE 08/10/17 06:30 08/13/17 06:29 08/10/17 06:57 (Chlorhexidine 2% Cloth) 3 pack TRANSFER AND LINE UP WORKER PRN TOPICAL 08/10/17 06:30 08/13/17 06:29 (Plavix) 75 mg DAILY PO 08/11/17 09:00 08/11/17 11:00 (D50w (Vial) Inj) 50 ml UNSCH PRN IV PUSH 08/10/17 11:15 (Glucagon Inj) 1 mg UNSCH PRN OTHER 08/10/17 11:15 (Lipitor) 40 mg DAILY PO 08/11/17 09:00 08/11/17 08:16 (Lopressor) 50 mg Q12HR PO 08/11/17 09:00 08/11/17 08:15 (Apresoline Inj) 10 mg Q1H PRN IV PUSH 08/10/17 12:00 (Duoneb Neb) 1 ampule Q2HR NEB PRN INH 08/10/17 12:00 Vital Signs / I&O Vital Signs Date Time Temp Pulse Resp B/P (MAP) Pulse Ox O2 Delivery O2 Flow Rate FiO2 08/11/17 07:57 95 21 08/11/17 07:50 89 08/11/17 07:50 92 Room Air 08/11/17 07:46 98.0 86 16 141/77 (98) 97 153/59 (90) 08/11/17 07:00 96 08/11/17 03:00 84 08/11/17 03:00 98.2 84 14 141/60 (87) 97 157/59 (91) 08/11/17 03:00 83 08/11/17 03:00 97 Nasal Cannula 2.00 08/11/17 00:47 14 08/10/17 23:00 89 08/10/17 23:00 89 08/10/17 23:00 97 Nasal Cannula 2.00 08/10/17 23:00 98.3 89 14 131/69 (89) 97 144/56 (85) 08/10/17 19:32 95 Nasal Cannula 2.00 08/10/17 19:00 98.1 91 14 128/68 (88) 97 143/57 (85) 08/10/17 19:00 91 08/10/17 19:00 97 Nasal Cannula 2.00 08/10/17 19:00 91 08/10/17 15:00 97.7 69 16 133/62 (85) 97 147/55 (85) 08/10/17 15:00 97 Nasal Cannula 2.00 08/10/17 15:00 66 08/10/17 15:00 66 08/10/17 14:00 67 08/10/17 14:00 98 Nasal Cannula 2.00 I/O 08/10/17 08/10/17 08/10/17 08/11/17 08/11/17 08/11/17 07:00 15:00 23:00 07:00 15:00 23:00 Intake Total 1500 ml 740 ml 240 ml Output Total 200 ml 480 ml 350 ml Balance 1300 ml 260 ml -110 ml Intake Oral 240 ml 240 ml IV Total 500 ml Other 1500 ml Output Urine Total 100 ml 480 ml 350 ml Estimated Blood Loss 100 ml # Bowel Movements 0 Physical Exam SKIN: Warm and dry. HEAD: Normocephalic. EYES: No scleral icterus. No injection or drainage. NECK: Supple, trachea midline. No JVD or lymphadenopathy. CARDIOVASCULAR: Regular rate and rhythm without murmurs, gallops, or rubs. RESPIRATORY: Breath sounds equal bilaterally. No accessory muscle use. GASTROINTESTINAL: Abdomen soft, non-tender, nondistended. MUSCULOSKELETAL: No cyanosis, or edema. BACK: Nontender without obvious deformity. No CVA tenderness. Laboratory Laboratory Tests Test 08/11/17 04:45 White Blood Count 6.2 TH/MM3 Red Blood Count 3.65 MIL/MM3 Hemoglobin 10.6 GM/DL Hematocrit 31.0 % Mean Corpuscular Volume 85.0 FL Mean Corpuscular Hemoglobin 29.1 PG Mean Corpuscular Hemoglobin Concent 34.2 % Red Cell Distribution Width 15.4 % Platelet Count 65 TH/MM3 Mean Platelet Volume 9.4 FL Blood Urea Nitrogen 19 MG/DL Creatinine 1.20 MG/DL Random Glucose 110 MG/DL Total Protein 5.4 GM/DL Albumin 2.8 GM/DL Calcium Level 7.9 MG/DL Alkaline Phosphatase 45 U/L Aspartate Amino Transf (AST/SGOT) 47 U/L Alanine Aminotransferase (ALT/SGPT) 13 U/L Total Bilirubin 0.7 MG/DL Sodium Level 141 MEQ/L Potassium Level 3.8 MEQ/L Chloride Level 107 MEQ/L Carbon Dioxide Level 25.7 MEQ/L Anion Gap 8 MEQ/L Estimat Glomerular Filtration Rate 58 ML/MIN Assessment and Plan Problem List: (1) S/P TAVR (transcatheter aortic valve replacement) ICD Codes: Z95.2 - Presence of prosthetic heart valve (2) Combined systolic and diastolic congestive heart failure ICD Codes: I50.40 - Unspecified combined systolic (congestive) and diastolic ( congestive) heart failure (3) Aortic stenosis, severe ICD Codes: I35.0 - Nonrheumatic aortic (valve) stenosis Status: Acute Assessment and Plan Severe aortic stenosis status post transcatheter aortic valve replacement Diastolic congestive heart failure Thrombocytopenia, chronic. followup 2d echo asa plavix. plt to 60k. no bleeding ambulate appreciate dr gamboa assistance. PT/OT transfer to floor tele Possible DC later today if doing well, otherwise anticipate DC tomorrow am. Kadeem Zendejas MD Aug 11, 2017 11:30
--- NOTE | 2017-08-11 11:40 | ECHRPT ---
Indication: TAVR CONCLUSIONS Normal left ventricular size. Mild concentric left ventricular hypertrophy. The left ventricular systolic function is normal with an estimated ejection fraction in the range of 55-60%. Normally functioning bioprosthetic aortic valve replacement (TAVR). no paravalvular leak Mild aortic valve regurgitation. BP: 155 / 78 HR: 68 Rhythm: Sinus MEASUREMENTS (Male / Female) Normal Values Technical Quality:Fair 2D ECHO LV Diastolic Diameter PLAX 4.6 cm 4.2 - 5.9 / 3.9 - 5.3 cm LV Systolic Diameter PLAX 3.5 cm IVS Diastolic Thickness 1.2 cm 0.6 - 1.0 / 0.6 - 0.9 cm LVPW Diastolic Thickness 1.2 cm 0.6 - 1.0 / 0.6 - 0.9 cm LV Relative Wall Thickness 0.5 LVOT Diameter 1.9 cm Aortic Root Diameter 2.7 cm DOPPLER AV Peak Velocity 205.0 cm/s AV Peak Gradient 16.8 mmHg AV Mean Gradient 8.0 mmHg AV Velocity Time Integral 32.8 cm LVOT Peak Velocity 86.7 cm/s LVOT Peak Gradient 3.0 mmHg LVOT Velocity Time Integral 13.1 cm AV Area Cont Eq vti 1.1 cm AV Area Cont Eq pk 1.2 cm Mitral E Point Velocity 82.3 cm/s Mitral A Point Velocity 141.0 cm/s Mitral E to A Ratio 0.6 FINDINGS LEFT VENTRICLE Normal left ventricular size. Mild concentric left ventricular hypertrophy. The left ventricular systolic function is normal with an estimated ejection fraction in the range of 55-60%. Doppler parameters are consistent with impaired left ventricular relaxtion (grade 1 diastolic dysfun ction). LEFT ATRIUM The left atrial size is mildly dilated. AORTIC VALVE Status-post percutaneous aortic valve replacement. Aortic valve area is 1.1 cm. Aortic valve mean gradient is 8 mmHg. Mild aortic valve regurgitation. PERICARDIUM No pericardial effusion. Kadeem Zendejas MD, FACC (Electronically Signed) Final Date:11 August 2017 11:39
[2017-08-11] MEDS ORDERED: ASPIRIN EC 81 MG TABEC PO SCH (12:15)
--- NOTE | 2017-08-11 14:37 | RADRPT ---
EXAM DATE/TIME: 08/11/2017 12:42 [facility] COMPARISON: CHEST SINGLE AP, May 30, 2017, 4:30. INDICATIONS : Post valve repair. MEDICAL HISTORY : Cerebrovascular disease. Cardiovascular disease. Hypertension. SURGICAL HISTORY : Right shoulder surgery ENCOUNTER: Subsequent ACUITY: 1 day PAIN SCORE: 0/10 LOCATION: Bilateral chest FINDINGS: A single portable frontal view the chest shows a stent overlying the region of the aortic valve. This is a new finding. Heart is normal in size. Lungs are clear. No effusions, infiltrates, or pneumothor aces. Bony structures are unremarkable. CONCLUSION: No acute abnormality. Reginaldo Killian Jr., MD on August 11, 2017 at 14:35 Board Certified Radiologist. This report was verified electronically.
--- NOTE | 2017-08-11 19:54 | EKG ---
Date Performed: 08/11/2017 Time Performed: 05:15:18 PTAGE: 82 years EKG: Sinus rhythm Leftward axis Left ventricular hypertrophy Anterolateral ST-T changes may be due to hypertrophy and/ or ischemia Abnormal ECG PREVIOUS TRACING : 08/10/2017 06.32 Since the prior tracing, there has been no significant craven DOCTOR: Elizabeth Benitez Interpretating Date/Time 08/11/2017 19:51:46
[2017-08-12] VITALS (27 sets, daily range): BP systolic 113–147; BP diastolic 55–107; PULSE 74–100; RESP 16–20; TEMP 98.1–98.6; O2SAT 93–97
--- NOTE | 2017-08-12 08:34 | HHI.DS ---
Discharge Summary Admission Date Aug 10, 2017 at 05:21 Discharge Date: Aug 12, 2017 Admitting Diagnosis Aortic stenosis Procedures Transcatheter aortic valve replacement CBC/BMP: 08/11/17 0445 08/11/17 0445 Significant Findings Laboratory Tests Test 08/10/17 06:00 08/11/17 04:45 Platelet Count 101 TH/MM3 (150-450) 65 TH/MM3 (150-450) Monocytes (%) (Auto) 9.8 % (0.0-8.0) Eosinophils (%) (Auto) 6.3 % (0.0-4.0) Blood Urea Nitrogen 21 MG/DL (7-18) 19 MG/DL (7-18) Creatinine 1.36 MG/DL (0.60-1.30) Random Glucose 116 MG/DL (74-106) 110 MG/DL (74-106) Estimat Glomerular Filtration Rate 50 ML/MIN (>89) 58 ML/MIN (>89) Red Blood Count 3.65 MIL/MM3 (4.50-5.90) Hemoglobin 10.6 GM/DL (13.0-17.0) Hematocrit 31.0 % (39.0-51.0) Total Protein 5.4 GM/DL (6.4-8.2) Albumin 2.8 GM/DL (3.4-5.0) Calcium Level 7.9 MG/DL (8.5-10.1) Aspartate Amino Transf (AST/SGOT) 47 U/L (15-37) PE at Discharge HEAD: Normocephalic. EYES: No scleral icterus. No injection or drainage. NECK: Supple, trachea midline. No JVD or lymphadenopathy. CARDIOVASCULAR: Regular rate and rhythm without murmurs, gallops, or rubs. RESPIRATORY: Breath sounds equal bilaterally. No accessory muscle use. GASTROINTESTINAL: Abdomen soft, non-tender, nondistended. MUSCULOSKELETAL: No cyanosis, or edema. BACK: Nontender without obvious deformity. No CVA tenderness. Bilateral groins clean dry and intact Hospital Course Patient had relatively unremarkable postoperative course. Ambulate without difficulty. Seen and evaluated by physical therapy and occupational therapy and cleared for home discharge. Home medications were restarted. No arrhythmias. Appreciate electrophysiology input. Pt Condition on Discharge: Good Discharge Disposition: Discharge Home Discharge Instructions DIET: Follow Instructions for: Heart Healthy Diet Activities you can perform: Weight Bearing as Matias Activities to avoid: Strenuous Activity, Bathing Kadeem Zendejas MD Aug 12, 2017 08:34
[2017-08-12] MEDS: CLOPIDOGREL 75 MG TAB PO SCH (09:17)
[2017-08-12] MEDS: ATORVASTATIN 40 MG TAB PO SCH (09:17)
[2017-08-12] MEDS: ASPIRIN EC 81 MG TABEC PO SCH (09:17)
[2017-08-12] MEDS: METOPROLOL TARTRATE 50 MG TAB PO SCH ×2 (09:17→21:00)
--- NOTE | 2017-08-12 14:31 | EKG ---
Date Performed: 08/12/2017 Time Performed: 09:13:46 PTAGE: 82 years EKG: Sinus rhythm with PVC(s) Left axis deviation Left bundle branch block Septal ST changes are nonspecific Abnormal ECG PREVIOUS TRACING : 08/11/2017 05.15 Since the prior tracing, the patient has developed a left b undle branch block with a left axis deviation, so the tracings are not directly comparable. The PVCs are new. DOCTOR: Chanda Klein Interpretating Date/Time 08/12/2017 14:30:10
[2017-08-12] MEDS: ACETAMINOPHEN 325 MG TAB PO PRN (19:27)
[2017-08-13] VITALS (10 sets, daily range): BP systolic 115–124; BP diastolic 52–62; PULSE 66–86; RESP 16; TEMP 98.5–98.6; O2SAT 96–97
[2017-08-13] MEDS: ACETAMINOPHEN 325 MG TAB PO PRN (00:33)
[2017-08-13] MEDS ORDERED: LISI-519 PO (09:10)
--- NOTE | 2017-08-13 09:21 | PD.CARD.PN ---
Subjective Subjective Remarks No complaints eager to go home Objective Medications Current Medications Medications (Trade) Dose Ordered Sig/Abelino Route Start Time Stop Time Status Last Admin (Plavix) 75 mg DAILY PO 08/11/17 09:00 08/12/17 09:17 (D50w (Vial) Inj) 50 ml UNSCH PRN IV PUSH 08/10/17 11:15 (Glucagon Inj) 1 mg UNSCH PRN OTHER 08/10/17 11:15 (Lipitor) 40 mg DAILY PO 08/11/17 09:00 08/12/17 09:17 (Apresoline Inj) 10 mg Q1H PRN IV PUSH 08/10/17 12:00 (Duoneb Neb) 1 ampule Q2HR NEB PRN INH 08/10/17 12:00 (Ecotrin Ec) 81 mg DAILY PO 08/12/17 09:00 08/12/17 09:17 (Tylenol) 650 mg Q4H PRN PO 08/12/17 18:45 08/13/17 00:33 (Prinivil) 5 mg DAILY PO 08/13/17 10:00 Vital Signs / I&O Vital Signs Date Time Temp Pulse Resp B/P (MAP) Pulse Ox O2 Delivery O2 Flow Rate FiO2 08/13/17 08:00 86 08/13/17 08:00 98.5 70 16 124/62 (82) 97 08/13/17 07:00 84 08/13/17 04:28 98.6 70 16 119/56 (77) 97 08/13/17 04:00 66 08/13/17 03:00 77 08/13/17 02:00 70 08/13/17 01:00 84 08/13/17 00:00 66 08/13/17 00:00 98.6 75 16 115/52 (73) 96 08/12/17 23:00 86 08/12/17 22:00 80 08/12/17 21:00 82 08/12/17 20:19 98.6 84 16 128/61 (83) 96 08/12/17 20:14 97 21 08/12/17 20:00 86 08/12/17 19:00 86 08/12/17 18:00 100 08/12/17 17:00 84 08/12/17 16:00 74 08/12/17 16:00 98.1 74 20 118/70 (86) 96 08/12/17 15:00 76 08/12/17 14:00 76 08/12/17 13:00 76 08/12/17 12:00 98.4 95 16 147/107 (120) 94 08/12/17 12:00 97 08/12/17 10:00 78 I/O 08/12/17 08/12/17 08/12/17 08/13/17 08/13/17 08/13/17 07:00 15:00 23:00 07:00 15:00 23:00 Intake Total 720 ml 720 ml 420 ml Output Total 850 ml Balance 720 ml -130 ml 420 ml Intake Oral 720 ml 720 ml 420 ml Output Urine Total 850 ml # Voids 5 5 # Bowel Movements 1 0 Physical Exam SKIN: Warm and dry. HEAD: Normocephalic. EYES: No scleral icterus. No injection or drainage. NECK: Supple, trachea midline. No JVD or lymphadenopathy. CARDIOVASCULAR: Regular rate and rhythm without murmurs, gallops, or rubs. RESPIRATORY: Breath sounds equal bilaterally. No accessory muscle use. GASTROINTESTINAL: Abdomen soft, non-tender, nondistended. MUSCULOSKELETAL: No cyanosis, or edema. BACK: Nontender without obvious deformity. No CVA tenderness. Assessment and Plan Problem List: (1) S/P TAVR (transcatheter aortic valve replacement) ICD Codes: Z95.2 - Presence of prosthetic heart valve (2) Combined systolic and diastolic congestive heart failure ICD Codes: I50.40 - Unspecified combined systolic (congestive) and diastolic ( congestive) heart failure (3) Aortic stenosis, severe ICD Codes: I35.0 - Nonrheumatic aortic (valve) stenosis Status: Acute Assessment and Plan Severe aortic stenosis status post transcatheter aortic valve replacement Diastolic congestive heart failure Thrombocytopenia, chronic. no complaints. patient wants to go home today! EKG today - no change. LBBB stable. tele no high degree AV block. no symptoms with ambulation Appreciate Dr Juarez assistance, discussion yesterday with EP. If no change on EKG in 24 hrs, plan for DC and FU OPD will DC BB Add low dose ACEi Kadeem Zendejas MD Aug 13, 2017 09:21
[2017-08-13] MEDS: ATORVASTATIN 40 MG TAB PO SCH (09:23)
[2017-08-13] MEDS: CLOPIDOGREL 75 MG TAB PO SCH (09:23)
[2017-08-13] MEDS: ASPIRIN EC 81 MG TABEC PO SCH (09:24)
[2017-08-13] MEDS ORDERED: LISINOPRIL 5 MG TAB PO SCH (10:00)
--- NOTE | 2017-08-13 17:12 | EKG ---
Date Performed: 08/13/2017 Time Performed: 09:15:28 PTAGE: 82 years EKG: Sinus rhythm with PVC(s) with 1st degree A-V block Left axis deviation Left bundle branch block Abnormal ECG NO PREVIOUS TRACING DOCTOR: Bryan House Interpretating Date/Time 08/13/2017 17:11:23
== END 2017-08-13 12:04 | disposition home or self-care (01) | DRG 267 ==
LOC: HDIC 05:21 → HCVI 11:05 → HCPC 08-11 13:03
PROVIDERS: ADMIT Internal Medicine; ATTEND Internal Medicine
PROC: 0T9B70Z Drainage of Bladder with Drainage Device, Via Natural or Artificial Opening (ICD-10-PCS; 2017-08-10)
PROC: B246ZZ4 Ultrasonography of Right and Left Heart, Transesophageal (ICD-10-PCS; 2017-08-10)
PROC: 02RF38Z Replacement of Aortic Valve with Zooplastic Tissue, Percutaneous Approach (ICD-10-PCS; principal; 2017-08-10 07:55)
PROC: 027F3ZZ Dilation of Aortic Valve, Percutaneous Approach (ICD-10-PCS; 2017-08-10 07:55)
PROC: B3101ZZ Fluoroscopy of Thoracic Aorta using Low Osmolar Contrast (ICD-10-PCS; 2017-08-10 07:55)
DX: I08.3 Combined rheumatic disorders of mitral, aortic and tricuspid valves (principal); I50.42 Chronic combined systolic (congestive) and diastolic (congestive) heart failure; N18.3 Chronic kidney disease, stage 3 (moderate); I13.0 Hypertensive heart and chronic kidney disease with heart failure and stage 1 through stage 4 chronic kidney disease, or unspecified chronic kidney disease; D69.6 Thrombocytopenia, unspecified; J44.9 Chronic obstructive pulmonary disease, unspecified; M06.9 Rheumatoid arthritis, unspecified; Z95.5 Presence of coronary angioplasty implant and graft; I25.10 Atherosclerotic heart disease of native coronary artery without angina pectoris; Z87.891 Personal history of nicotine dependence; E78.5 Hyperlipidemia, unspecified; I44.7 Left bundle-branch block, unspecified; I69.321 Dysphasia following cerebral infarction; Z00.6 Encounter for examination for normal comparison and control in clinical research program
CPT/HCPCS: 33210; 33361; 71045; 80048; 80053; 85002; 85025; 85027; 85610; 85730; 86850; 86900; 86901; 86920; 86921; 86922; 92986; 93005; 93308; 93312; 93320; 93325; 94150; 94640; 94667; 94668; C1760; C1769; C1893; G0269; J0690; J1644; J2250; J2370; J2710; J2720; J3010; J7030; J7040; J7050; Q9967

== ENCOUNTER 2017-09-06 19:36 | Emergency (ER) | payer MEDICARE ==
[~2017-09-06 19:36] MED LIST changes: +LISI-519 PO; -METO-309 PO
[2017-09-06 19:41] VITALS: BP 176/82; PULSE 130; RESP 20; TEMP 97.9; O2SAT 99
== END 2017-09-06 22:26 | disposition left against medical advice (07) ==
LOC: NED 19:36
DX: Z53.21 Procedure and treatment not carried out due to patient leaving prior to being seen by health care provider (principal)
CPT/HCPCS: 99281